=== PATIENT | female | born 1980 | race Caucasian/White ===

== ENCOUNTER 2016-11-20 21:28 | Emergency (ER) | payer MEDICARE, OTHER ==
[2016-11-20] MEDS ORDERED: diphenhydrAMINE 50 MG/ML 1 ML VIAL IVP STA (22:01)
[2016-11-20] MEDS ORDERED: KETOROLAC 30 MG/ML 1 ML VIAL IVP STA (22:01)
[2016-11-20] MEDS ORDERED: SODIUM CHLORIDE 0.9% 500 ML IV STA (22:01)
--- NOTE | 2016-11-20 22:09 | ED ---
Head Injury HPI - General Chief complaint: Head Injury Stated complaint: head injury Time Seen by Provider: 11/20/16 21:54 Source: patient Mode of arrival: ambulatory Limitations: no limitations - History of Present Illness Initial comments: This patient is a 36-year-old woman who states that she is having severe left parietal headache. She believes that it is related to a fall that she had proximal 3 weeks ago. The patient states she had been drinking at the time. She slipped on the stairs and the right side of her head struck a wooden banister, and then the left side of her head struck a plaster wall breaking the plaster. She states that she was dazed but did not lose consciousness. She did have an episode of vomiting but then went to bed. She states that since that time the headache is not resolved and then today it was worsening. She states the pain is severe, constant, gets worse with bright lights. She has not noted any relieving factors. She denies neck pain. She denies any neurologic symptoms. MD Complaint: head injury, head pain Onset/Timin -: week(s) Mechanism of Injury: mechanical fall Location: parietal Loss of Consciousness: no Previous Trauma to this Area: No Place: home Radiation: none Severity: severe Quality: aching Consistency: constant Other Injuries: none - Related Data Home Medications Medication Instructions Recorded Confirmed DULoxetine HCL [Cymbalta] 120 mg PO DAILY 11/20/16 11/20/16 Lisinopril [Zestril] 20 mg PO DAILY 11/20/16 11/20/16 OXcarbazepine [Trileptal] 600 mg PO BID 11/20/16 11/20/16 Prazosin [Minipress] 1 mg PO DAILY PRN 11/20/16 11/20/16 Prazosin [Minipress] 3 mg PO HS 11/20/16 11/20/16 Allergies/Adverse reactions: Allergies Allergy/AdvReac Type Severity Reaction Status Date / Time No Known Allergies Allergy Verified 11/20/16 21:51 Review of Systems ROS Statement: Those systems with pertinent positive or pertinent negative responses have been documented in the HPI. ROS Other: All systems not noted in ROS Statement are negative. Constitutional: Denies: fever, chills, weakness Eyes: Denies: eye pain, vision change ENT: Denies: ear pain, hearing loss, epistaxis Respiratory: Denies: cough, dyspnea Cardiovascular: Denies: chest pain Gastrointestinal: Denies: abdominal pain, vomiting Musculoskeletal: Denies: back pain Neurological: Reports: headache. Denies: weakness, numbness, paresthesias, confusion, abnormal gait Hematological/Lymphatic: Denies: easy bleeding Past Medical History Past Medical History: GERD/Reflux, Sleep Apnea/CPAP/BIPAP Additional Past Medical History / Comment(s): Pt. has a hx. of DM but lost wt. and started exercising approx. one year ago and no longer needs oral diabetic meds. or diabetic diet; Pt. takes omeprazole otc, when needed for acid reflux; Pt. uses a cpap machine at home, but doesn't have it with her in the hospital; Pt. states she has chronic back pain but has no diagnosis and no prev. injury; Pt. has endometriosis and interstitial cystitis. History of Any Multi-Drug Resistant Organisms: None Reported Past Surgical History: Tubal Ligation Past Anesthesia/Blood Transfusion Reactions: No Reported Reaction Past Psychological History: Anxiety, Bipolar, Depression, PTSD Smoking Status: Current every day smoker Past Alcohol Use History: Occasional Past Drug Use History: Marijuana - Past Family History Father Family Medical History: Cancer, Congestive Heart Failure (CHF), Diabetes Mellitus, Dialysis, Hypertension, Renal Disease General Exam Limitations: no limitations General appearance: alert, in no apparent distress, obese Head exam: Present: atraumatic, normocephalic Eye exam: Present: normal appearance, PERRL, EOMI. Absent: scleral icterus, conjunctival injection, nystagmus, periorbital swelling, periorbital tenderness ENT exam: Present: normal oropharynx, mucous membranes moist, TM's normal bilaterally, normal external ear exam Neck exam: Present: normal inspection, full ROM. Absent: tenderness, meningismus Respiratory exam: Present: normal lung sounds bilaterally. Absent: respiratory distress, wheezes, rales, rhonchi Cardiovascular Exam: Present: regular rate, normal rhythm, normal heart sounds. Absent: systolic murmur, diastolic murmur, rubs, gallop Extremities exam: Present: normal inspection, normal capillary refill. Absent: pedal edema, calf tenderness Back exam: Present: normal inspection. Absent: vertebral tenderness Neurological exam: Present: alert, oriented X3, CN II-XII intact. Absent: motor sensory deficit Skin exam: Present: warm, dry, intact, normal color. Absent: rash Course Vital Signs 11/20/16 11/20/16 21:43 22:20 Temperature 98.8 F Pulse Rate 89 67 Respiratory 16 16 Rate Blood Pressure 133/89 136/96 O2 Sat by Pulse 100 97 Oximetry Disposition Clinical Impression: Closed head injury Disposition: HOME SELF-CARE Condition: Fair Instructions: Concussion (ED) Referrals: Carlita Dover MD [Primary Care Provider] - 1-2 days Zeus Adams MD [STAFF PHYSICIAN] - 1-2 days
--- NOTE | 2016-11-20 23:04 | CT ---
EXAM: CT Head Without Intravenous Contrast CLINICAL HISTORY: Reason: Pain TECHNIQUE: Axial computed tomography images of the head/brain without intravenous contrast. CTDI is 44.40 mGy and DLP is 782.60 mGy-cm. This CT exam was performed using one or more of the following dose reduction techniques: automated exposure control, adjustment of the mA and/or kV according to patient size, and/or use of iterative reconstruction technique. COMPARISON: 09/09/2013 FINDINGS: Brain: Unremarkable. No hemorrhage. No significant white matter disease. No edema. Ventricles: Unremarkable. No ventriculomegaly. Bones/joints: Unremarkable. No acute fracture. Soft tissues: Unremarkable. Sinuses: Unremarkable as visualized. No acute sinusitis. Mastoid air cells: Unremarkable as visualized. No mastoid effusion. IMPRESSION: Normal head/brain CT.
[2016-11-20] MEDS ORDERED: METOCLOPRAMIDE 5 MG/ML 2 ML VIAL IVP STA (23:22)
[2016-11-20 23:50] VITALS: BP 110/53; PULSE 78; RESP 18
[2016-11-21 00:03] VITALS: TEMP 98.2
== END 2016-11-21 00:04 | disposition home or self-care (01) ==
LOC: EC 21:28
DX: S09.90XA Unspecified injury of head, initial encounter (principal); F43.12 Post-traumatic stress disorder, chronic; F41.9 Anxiety disorder, unspecified; F31.9 Bipolar disorder, unspecified; Z68.41 Body mass index [BMI] 40.0-44.9, adult; E66.9 Obesity, unspecified; G47.30 Sleep apnea, unspecified; F17.200 Nicotine dependence, unspecified, uncomplicated; Z99.89 Dependence on other enabling machines and devices; Z79.899 Other long term (current) drug therapy; W10.9XXA Fall (on) (from) unspecified stairs and steps, initial encounter; Y92.009 Unspecified place in unspecified non-institutional (private) residence as the place of occurrence of the external cause
CPT/HCPCS: 96375 ×3; 96361 ×2; 96374 ×2; 99284 ×2; 70450; J1200; J2765; J1885

== ENCOUNTER 2017-09-18 12:41 | Inpatient (IN) | payer MEDICARE, MEDICAID ==
--- NOTE | 2017-09-18 13:40 | ED ---
Psych HPI - General Chief Complaint: Psychiatric Symptoms Stated Complaint: EPS eval Time Seen by Provider: 09/18/17 12:54 Source: patient, RN notes reviewed Mode of arrival: ambulatory Limitations: no limitations - History of Present Illness Initial Comments: This is a 37-year-old female presents emergency Department chief complaint of depression thoughts of suicide. Patient states that her boyfriend this morning from an overdose. Patient states that they had argument eye before and she feels that it's her fault. Patient states that she does use alcohol denies any illicit drug use. Patient states she had an appointment with [facility] today though she states that she does not want to go there. Patient denies any physical complaints. - Related Data Home Medications Medication Instructions Recorded Confirmed DULoxetine HCL [Cymbalta] 120 mg PO DAILY 11/20/16 09/18/17 Lisinopril [Zestril] 20 mg PO DAILY 11/20/16 09/18/17 OXcarbazepine [Trileptal] 600 mg PO BID 11/20/16 09/18/17 Acyclovir 400 mg PO BID 09/18/17 09/18/17 Cholecalciferol [Vitamin D3] 5,000 unit PO DAILY 09/18/17 09/18/17 Cyanocobalamin [Vitamin B-12 2,000 mcg SQ Q7D 09/18/17 09/18/17 Injection] Ibuprofen [Motrin] 600 mg PO AC-TID PRN 09/18/17 09/18/17 Prazosin [Minipress] 1 mg PO HS 09/18/17 09/18/17 Prazosin [Minipress] 5 mg PO HS 09/18/17 09/18/17 cloNIDine HCL [Catapres] 0.1 mg PO DAILY PRN 09/18/17 09/18/17 Allergies Allergy/AdvReac Type Severity Reaction Status Date / Time No Known Allergies Allergy Verified 09/18/17 12:57 Review of Systems ROS Statement: Those systems with pertinent positive or pertinent negative responses have been documented in the HPI. ROS Other: All systems not noted in ROS Statement are negative. Past Medical History Past Medical History: GERD/Reflux, Sleep Apnea/CPAP/BIPAP Additional Past Medical History / Comment(s): Pt. has a hx. of DM but lost wt. and started exercising approx. one year ago and no longer needs oral diabetic meds. or diabetic diet; Pt. takes omeprazole otc, when needed for acid reflux; Pt. uses a cpap machine at home, but doesn't have it with her in the hospital; Pt. states she has chronic back pain but has no diagnosis and no prev. injury; Pt. has endometriosis and interstitial cystitis. History of Any Multi-Drug Resistant Organisms: None Reported Past Surgical History: Tubal Ligation Past Anesthesia/Blood Transfusion Reactions: No Reported Reaction Past Psychological History: Anxiety, Bipolar, Depression, PTSD Smoking Status: Current every day smoker Past Alcohol Use History: Occasional Past Drug Use History: Marijuana - Past Family History Father Family Medical History: Cancer, Congestive Heart Failure (CHF), Diabetes Mellitus, Dialysis, Hypertension, Renal Disease General Exam Limitations: no limitations General appearance: alert, in no apparent distress Head exam: Present: atraumatic, normocephalic, normal inspection Eye exam: Present: normal appearance, PERRL, EOMI. Absent: scleral icterus, conjunctival injection, periorbital swelling ENT exam: Present: normal exam, normal oropharynx, mucous membranes moist Neck exam: Present: normal inspection, full ROM. Absent: tenderness, meningismus, lymphadenopathy Respiratory exam: Present: normal lung sounds bilaterally. Absent: respiratory distress, wheezes, rales, rhonchi, stridor Cardiovascular Exam: Present: regular rate, normal rhythm, normal heart sounds. Absent: systolic murmur, diastolic murmur, rubs, gallop, clicks GI/Abdominal exam: Present: soft, normal bowel sounds. Absent: distended, tenderness, guarding, rebound, rigid Neurological exam: Present: alert Psychiatric exam: Present: depressed, other (Patient is tearful) Skin exam: Present: warm, dry, intact, normal color. Absent: rash Course Vital Signs 09/18/17 09/18/17 12:49 13:28 Temperature 98.4 F Pulse Rate 84 Respiratory 20 18 Rate Blood Pressure 122/86 Medical Decision Making - Lab Data Lab Results 09/18/17 Range/Units 13:02 Urine Opiates Screen Not Detected (NotDetected) Ur Oxycodone Screen Not Detected (NotDetected) Urine Methadone Screen Not Detected (NotDetected) Ur Propoxyphene Screen Not Detected (NotDetected) Ur Barbiturates Screen Not Detected (NotDetected) U Tricyclic Antidepress Not Detected (NotDetected) Ur Phencyclidine Scrn Not Detected (NotDetected) Ur Amphetamines Screen Not Detected (NotDetected) U Methamphetamines Scrn Not Detected (NotDetected) U Benzodiazepines Scrn Not Detected (NotDetected) Urine Cocaine Screen Not Detected (NotDetected) U Marijuana (THC) Screen Detected H (NotDetected) Disposition Clinical Impression: Depression, Suicidal ideation Disposition: ADMITTED IP TO THIS [facility] Condition: Stable
[2017-09-18 13:41] LABS: Amphetamine Screen,Urine Not Detected (NotDetected); Barbiturate Screen,Urine Not Detected (NotDetected); Benzodiazepines Screen,Urine Not Detected (NotDetected); Cocaine Screen,Urine Not Detected (NotDetected); Methadone Screen, Urine Not Detected (NotDetected); Opiate Screen,Urine Not Detected (NotDetected); Oxycodone Screen, Urine Not Detected (NotDetected); Phencyclidine Screen,Urine Not Detected (NotDetected); Tricyclic Antidepressant,Urine Not Detected (NotDetected); Urn Cannabinoid Scrn Detected (NotDetected)
[2017-09-18] MEDS ORDERED: ACETAMINOPHEN TAB 325 MG TAB PO PRN (16:30)
[2017-09-18] MEDS ORDERED: MAGNESIUM HYDROXIDE 2,400 MG/10 ML CUP PO PRN (16:30)
[2017-09-18] MEDS ORDERED: MAG HYDROX/AL HYDROX/SIMETH 30 ML CUP PO PRN (16:30)
[2017-09-18] MEDS ORDERED: IBUPROFEN 600 MG TAB PO PRN (16:35)
--- NOTE | 2017-09-18 17:03 | P.CONS ---
History of Present Illness - Reason for Consult Postherpetic pain and genital herpes - History of Present Illness 37-year-old female is admitted for the depression and suicidal ideations after her boyfriend of an overdose this morning. Patient was comparing of poor hepatic burning sensation in the vaginal area patient is already on acyclovir which will be continued. Patient does have history of hypertension patient blood pressures are well controlled with lisinopril which will be continued patient will be started on Neurontin patient is also on duloxetine which should help with the neuropathic pain from herpes, patient's drug screen is positive for marijuana. Review of Systems REVIEW OF SYSTEMS: CONSTITUTIONAL: No fever, no malaise, no fatigue. HEENT: No recent visual problems or hearing problems. Denied any sore throat. CARDIOVASCULAR: No chest pain, orthopnea, PND, no palpitations, no syncope. PULMONARY: No shortness of breath, no cough, no hemoptysis. GASTROINTESTINAL: No diarrhea, no nausea, no vomiting, no abdominal pain. Normoactive bowel sounds. NEUROLOGICAL: No headaches, no weakness, no numbness. HEMATOLOGICAL: Denies any bleeding or petechiae. GENITOURINARY: Denies any burning micturition, frequency, or urgency. MUSCULOSKELETAL/RHEUMATOLOGICAL: Denies any joint pain, swelling, or any muscle pain. ENDOCRINE: Denies any polyuria or polydipsia. The rest of the 14-point review of systems is negative. Past Medical History Past Medical History: GERD/Reflux, Sleep Apnea/CPAP/BIPAP Additional Past Medical History / Comment(s): Pt. has a hx. of DM but lost wt. and started exercising approx. one year ago and no longer needs oral diabetic meds. or diabetic diet; Pt. takes omeprazole otc, when needed for acid reflux; Pt. uses a cpap machine at home, but doesn't have it with her in the hospital; Pt. states she has chronic back pain but has no diagnosis and no prev. injury; Pt. has endometriosis and interstitial cystitis. History of Any Multi-Drug Resistant Organisms: None Reported Past Surgical History: Tubal Ligation Past Anesthesia/Blood Transfusion Reactions: No Reported Reaction Past Psychological History: Anxiety, Bipolar, Depression, PTSD Smoking Status: Current every day smoker Past Alcohol Use History: Occasional Past Drug Use History: Marijuana - Past Family History Father Family Medical History: Cancer, Congestive Heart Failure (CHF), Diabetes Mellitus, Dialysis, Hypertension, Renal Disease Medications and Allergies Home Medications Medication Instructions Recorded Confirmed Type DULoxetine HCL [Cymbalta] 120 mg PO DAILY 11/20/16 09/18/17 History Lisinopril [Zestril] 20 mg PO DAILY 11/20/16 09/18/17 History OXcarbazepine [Trileptal] 600 mg PO BID 11/20/16 09/18/17 History Acyclovir 400 mg PO BID 09/18/17 09/18/17 History Cholecalciferol [Vitamin D3] 5,000 unit PO DAILY 09/18/17 09/18/17 History Cyanocobalamin [Vitamin B-12 2,000 mcg SQ Q7D 09/18/17 09/18/17 History Injection] Ibuprofen [Motrin] 600 mg PO AC-TID PRN 09/18/17 09/18/17 History Prazosin [Minipress] 1 mg PO HS 09/18/17 09/18/17 History Prazosin [Minipress] 5 mg PO HS 09/18/17 09/18/17 History cloNIDine HCL [Catapres] 0.1 mg PO DAILY PRN 09/18/17 09/18/17 History Allergies Allergy/AdvReac Type Severity Reaction Status Date / Time No Known Allergies Allergy Verified 09/18/17 12:57 Physical Exam Vitals: Vital Signs Temp Pulse Pulse Resp BP BP Pulse Ox 09/18/17 16:31 98.2 F 80 16 120/77 100 09/18/17 15:50 98.3 F 86 20 124/67 98 09/18/17 13:28 18 09/18/17 12:49 98.4 F 84 20 122/86 Intake and Output 09/18/17 09/18/17 09/18/17 06:59 14:59 22:59 Other: Weight 97.522 kg 93.8 kg PHYSICAL EXAMINATION: GENERAL: The patient is alert and oriented x3, not in any acute distress. Well developed, well nourished. HEENT: Pupils are round and equally reacting to light. EOMI. No scleral icterus. No conjunctival pallor. Normocephalic, atraumatic. No pharyngeal erythema. No thyromegaly. CARDIOVASCULAR: S1 and S2 present. No murmurs, rubs, or gallops. PULMONARY: Chest is clear to auscultation, no wheezing or crackles. ABDOMEN: Soft, nontender, nondistended, normoactive bowel sounds. No palpable organomegaly. Did not perform genitourinary exam MUSCULOSKELETAL: No joint swelling or deformity. EXTREMITIES: No cyanosis, clubbing, or pedal edema. NEUROLOGICAL: Gross neurological examination did not reveal any focal deficits. SKIN: No rashes. Results Labs: Abnormal Lab Results - Last 24 Hours (Table) 09/18/17 Range/Units 13:02 U Marijuana (THC) Screen Detected H (NotDetected) Assessment and Plan Plan: -Postherpetic pain, patient does have genital herpes for which patient is already on acyclovir which is being continued patient was started on gabapentin for neuropathic pain patient is also on duloxetine. -Severe depression management as per primary service -Hypertension continue with lisinopril -Marijuana use counseling was provided -Gastroesophageal reflux disease -Sleep apnea For above-mentioned chronic medical problems appropriate home medications will be continued
[2017-09-18] MEDS: NICOTINE 21MG/24HR PATCH TRANSDERM SCH (17:39)
[2017-09-18] MEDS: GABAPENTIN 300 MG CAP PO SCH ×2 (17:39→21:40)
[2017-09-18] MEDS: LORazepam 1 MG TAB PO PRN (17:41)
[2017-09-18] MEDS: ACYCLOVIR 200 MG CAP PO SCH (21:40)
[2017-09-18] MEDS: PRAZOSIN 1 MG CAP PO SCH (21:40)
[2017-09-18] MEDS: OXcarbazepine 300 MG TAB PO SCH (21:40)
[2017-09-19 08:53] LABS: Basophils % (A) 1 %; Eosinophils # (A) 0.3 k/uL (0-0.7); Eosinophils % (A) 3 %; HCT 39.8 % (34.0-46.0); HGB 13.5 gm/dL (11.4-16.0); Lymphocytes # (A) 1.8 k/uL (1.0-4.8); Lymphocytes % (A) 23 %; MCHC 33.9 g/dL (31.0-37.0); MCV 91.4 fL (80.0-100.0); Mean Platelet Volume 6.6; Monocytes # (A) 0.4 k/uL (0-1.0); Monocytes % (A) 5 %; Neutrophils # (A) 5.2 k/uL (1.3-7.7); Neutrophils % (A) 66 %; Platelet Count 274 k/uL (150-450); RBC 4.36 m/uL (3.80-5.40); RDW 13.7 % (11.5-15.5); WBC 7.9 k/uL (3.8-10.6)
[2017-09-19] MEDS: ACYCLOVIR 200 MG CAP PO SCH ×2 (09:01→21:03)
[2017-09-19] MEDS: OXcarbazepine 300 MG TAB PO SCH ×2 (09:01→21:04)
[2017-09-19] MEDS: DULoxetine HCL 60 MG CAPSULE.DR PO SCH (09:01)
[2017-09-19] MEDS: GABAPENTIN 300 MG CAP PO SCH ×3 (09:01→21:04)
[2017-09-19] MEDS: NICOTINE 21MG/24HR PATCH TRANSDERM SCH (09:01)
[2017-09-19] MEDS: LISINOPRIL 20 MG TAB PO SCH (09:01)
[2017-09-19] MEDS: LORazepam 1 MG TAB PO PRN ×2 (09:02→21:56)
[2017-09-19] MEDS: ZIPRASIDONE 20 MG VIAL IM PRN ×2 (09:06→22:09)
[2017-09-19 09:24] LABS: ALT 25 U/L (9-52); AST 19 U/L (14-36); Alkaline Phosphatase 64 U/L (38-126); Anion Gap 12 mmol/L; Blood Urea Nitrogen 13 mg/dL (7-17); Carbon Dioxide 22 mmol/L (22-30); Chloride 103 mmol/L (98-107); Glucose 92 mg/dL (74-99); Potassium 4.1 mmol/L (3.5-5.1); Sodium 137 mmol/L (137-145); Total Bilirubin 0.4 mg/dL (0.2-1.3); Total Protein 6.3 g/dL (6.3-8.2)
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
[2017-09-19] MEDS: PRAZOSIN 1 MG CAP PO SCH (21:04)
[2017-09-19] MEDS ORDERED: diphenhydrAMINE 50 MG CAP PO STA (23:53)
[2017-09-20] MEDS: OXcarbazepine 300 MG TAB PO SCH ×2 (08:09→20:51)
[2017-09-20] MEDS: LISINOPRIL 20 MG TAB PO SCH (08:09)
[2017-09-20] MEDS: NICOTINE 21MG/24HR PATCH TRANSDERM SCH (08:09)
[2017-09-20] MEDS: GABAPENTIN 300 MG CAP PO SCH ×3 (08:09→20:51)
[2017-09-20] MEDS: DULoxetine HCL 60 MG CAPSULE.DR PO SCH (08:09)
[2017-09-20] MEDS: ACYCLOVIR 200 MG CAP PO SCH ×2 (08:09→20:51)
--- NOTE | 2017-09-20 12:41 | P.PN ---
Progress Note - Text Interval history: The patient's is found in the hallway she follows me to an interview room. She was admitted for acute depressive symptoms in the context of bereavement. She has a reported history of bipolar disorder and borderline personality disorder. The patient has been loud an animated on the mental health unit area during our session however she is fairly collected and speaks in a normal tone. She describes a variety of issues bothering her. She then states "you are bringing me down man" and asked to end the session. Mental status exam: The patient is an overweight female she is tanned she has short dark hair. She is dressed in her own clothing. She reports that her moods okay today but she is going through several mood symptoms. Again she is much more collected during our session but out in the milieu she is loud and animated. She is reporting no acute suicidal ideation intent or plan she states that she had suicidal thoughts last evening. No homicidal ideation intent or plan. She is reporting no auditory or visual hallucinations or any specific delusions. Insight and judgment limited. Plan: The patient will continue on her current medications. Consideration will be given to reducing her antidepressant if it appears she is hypomanic or manic with further observation. It does appear there is a significant contribution of personality disorder traits. She is encouraged to participate in the milieu when appropriate. Vital signs reviewed.
[2017-09-20] MEDS: LORazepam 1 MG TAB PO PRN ×2 (13:55→21:28)
[2017-09-20] MEDS: PRAZOSIN 1 MG CAP PO SCH (20:51)
[2017-09-20] MEDS: ZIPRASIDONE 20 MG VIAL IM PRN (22:56)
[2017-09-20] MEDS ORDERED: ZIPRASIDONE 20 MG VIAL IM ONE (22:56)
[2017-09-21] MEDS: ACYCLOVIR 200 MG CAP PO SCH ×2 (08:24→21:16)
[2017-09-21] MEDS: LISINOPRIL 20 MG TAB PO SCH (08:24)
[2017-09-21] MEDS: DULoxetine HCL 60 MG CAPSULE.DR PO SCH (08:24)
[2017-09-21] MEDS: NICOTINE 21MG/24HR PATCH TRANSDERM SCH (08:24)
[2017-09-21] MEDS: OXcarbazepine 300 MG TAB PO SCH ×2 (08:25→21:16)
[2017-09-21] MEDS: GABAPENTIN 300 MG CAP PO SCH ×3 (08:25→21:16)
[2017-09-21] MEDS: LORazepam 1 MG TAB PO PRN ×3 (08:25→21:17)
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
[2017-09-21] MEDS: ZIPRASIDONE 20 MG VIAL IM PRN (18:25)
[2017-09-21] MEDS: PRAZOSIN 1 MG CAP PO SCH (21:16)
[2017-09-22] MEDS: ZIPRASIDONE 20 MG VIAL IM PRN (01:29)
[2017-09-22 05:53] VITALS: TEMP 97.7
[2017-09-22] MEDS: NICOTINE 21MG/24HR PATCH TRANSDERM SCH (08:10)
[2017-09-22] MEDS: DULoxetine HCL 60 MG CAPSULE.DR PO SCH (08:11)
[2017-09-22] MEDS: OXcarbazepine 300 MG TAB PO SCH (08:11)
[2017-09-22] MEDS: ACYCLOVIR 200 MG CAP PO SCH (08:11)
[2017-09-22] MEDS: LISINOPRIL 20 MG TAB PO SCH (08:11)
[2017-09-22] MEDS: GABAPENTIN 300 MG CAP PO SCH (08:11)
[2017-09-22 08:15] VITALS: BP 146/84; PULSE 115; RESP 20
--- NOTE | 2017-09-22 15:20 | P.DS ---
Providers Date of admission: 09/18/17 15:38 Attending physician: Timothy Bonilla MD Consults: 09/18/17 16:30 Consult Physician Routine Consulting Provider: Dilip Whitehead Consult Reason/Comments: H & P and medical care Do you want consulting provider notified?: Already Contacted Primary care physician: [facility] - Discharge Diagnosis(es) (1) Bereavement Status: Acute Priority: High (2) Borderline personality disorder Status: Chronic Priority: High (3) Bipolar disorder Status: Chronic Priority: Low (4) Suicidal ideation Status: Resolved Priority: Medium Hospital Course: She is a 37-year-old female who has a history of a borderline personality disorder and a presumed diagnosis of a bipolar disorder. She presented to the psychiatric unit voluntarily with complaints of acute depression and suicidal ideation. She was acutely distressed when she presented to the unit. The morning of admission she learned that her boyfriend had of the drug overdose. She had all the signs and symptoms of acute bereavement including intense subject active distress, preoccupation with her boyfriend, feeling detached and depersonalized, feeling intense grief with themes of neck since and failure, intense hostility, anger and restlessness, insomnia and difficulty concentrating. We admitted to the psychiatric unit under care of this junior copywriter. We provided a comprehensive biopsychosocial examination. The financial reporting consultant bilingual teacher completed the initial physical exam and medical history and diagnosed: Postherpetic pain, genital herpes, hypertension, marijuana use, GERD and sleep apnea. The financial reporting consultant recommended to continue lisinopril 20 mg per day for treatment hypertension, gabapentin 300 mg 3 times a day for treatment of peripheral neuropathy, basically for 40 mg twice a day with treatment of genital herpes. We resumed her outpatient psychotropic medications including prazosin 6 mg at bedtime, Trileptal 600 mg by mouth twice a day, and duloxetine 120 mg daily. She participated in therapeutic groups and activities. She posed no management problem and required no emergency medicines for behavioral dyscontrol. The overall level of his distress gradually remitted and on the day of admission she felt confident to return home and to resume her outpatient mental health treatment to [facility]. At time of discharge she presented as a casually groomed and neatly dressed 37- year-old female who was pleasant on approach. She made eye contact and attended to the interview. She had a bright facial expression. She showed no abnormality of psychomotor activity. Her speech was spontaneous with normal rate, rhythm and volume. Affect was stable and appropriate. She denied suicidal ideation, wishes or homicidal ideation. She denied feeling hopeless, helpless or worthless. She did not express ideas reference, paranoid ideation or delusional thoughts. Her thinking was abstract and associations were coherent and logical. She denied hallucinations and did not appear to be responding to internal stimuli. Patient Condition at Discharge: Stable Plan - Discharge Summary Discharge Rx Participant: No New Discharge Prescriptions: New Gabapentin [Neurontin] 300 mg PO TID #90 cap Nicotine 21Mg/24Hr Patch [Habitrol] 1 patch TRANSDERM DAILY #7 patch Continue OXcarbazepine [Trileptal] 600 mg PO BID Lisinopril [Zestril] 20 mg PO DAILY Cholecalciferol [Vitamin D3] 5,000 unit PO DAILY Prazosin [Minipress] 5 mg PO HS Prazosin [Minipress] 1 mg PO HS Ibuprofen [Motrin] 600 mg PO AC-TID PRN PRN Reason: Pain Cyanocobalamin [Vitamin B-12 Injection] 2,000 mcg SQ Q7D Acyclovir 400 mg PO BID #60 tablet cloNIDine HCL [Catapres] 0.1 mg PO DAILY PRN #30 tab PRN Reason: Acute Panic Attack DULoxetine HCL [Cymbalta] 120 mg PO DAILY #60 capsule. Discharge Medication List Lisinopril [Zestril] 20 mg PO DAILY 11/20/16 [History] OXcarbazepine [Trileptal] 600 mg PO BID 11/20/16 [History] Cholecalciferol [Vitamin D3] 5,000 unit PO DAILY 09/18/17 [History] Cyanocobalamin [Vitamin B-12 Injection] 2,000 mcg SQ Q7D 09/18/17 [History] Ibuprofen [Motrin] 600 mg PO AC-TID PRN 09/18/17 [History] Prazosin [Minipress] 1 mg PO HS 09/18/17 [History] Prazosin [Minipress] 5 mg PO HS 09/18/17 [History] Acyclovir 400 mg PO BID #60 tablet 09/22/17 [Rx] DULoxetine HCL [Cymbalta] 120 mg PO DAILY #60 capsule. 09/22/17 [Rx] Gabapentin [Neurontin] 300 mg PO TID #90 cap 09/22/17 [Rx] Nicotine 21Mg/24Hr Patch [Habitrol] 1 patch TRANSDERM DAILY #7 patch 09/22/17 [ Rx] cloNIDine HCL [Catapres] 0.1 mg PO DAILY PRN #30 tab 09/22/17 [Rx] Follow up Appointment(s)/Referral(s): [facility] [Outside] - 09/25/17 1:45 pm (09-25-17 @ 1:45 with Carlita Carvajal 09-29-17 @ 8:[address] Crawford ) [facility] [Primary Care Provider] - 1-2 days Patient Instructions/Handouts: Cigarette Smoking and Your Health (GEN), Depression (GEN), Suicide Prevention for Adults (GEN) Activity/Diet/Wound Care/Special Instructions: Activity and diet as tolerated. Avoid the use of street drugs and alcohol. Take all medications as prescribed. When you are in need of refills on your medications please contact your medical provider and/or outpatient psychiatrist to have this done. Please go to scheduled outpatient appointment for aftercare treatment. If symptoms return or become worse call the crisis line at [phone] and/or go to the nearest emergency room for an evaluation. Discharge Disposition: HOME SELF-CARE
== END 2017-09-22 10:02 | disposition home or self-care (01) | DRG 885 ==
LOC: EC 12:41 → 3MHU 15:38
PROVIDERS: ADMIT Psychiatry & Neurology Psychiatry; ATTEND Psychiatry & Neurology Psychiatry
DX: F31.9 Bipolar disorder, unspecified (principal); R45.851 Suicidal ideations; B02.29 Other postherpetic nervous system involvement; E11.42 Type 2 diabetes mellitus with diabetic polyneuropathy; F60.3 Borderline personality disorder; Z63.4 Disappearance and death of family member; A60.00 Herpesviral infection of urogenital system, unspecified; I10 Essential (primary) hypertension; F12.90 Cannabis use, unspecified, uncomplicated; K21.9 Gastro-esophageal reflux disease without esophagitis; G47.30 Sleep apnea, unspecified; F60.89 Other specific personality disorders; F43.10 Post-traumatic stress disorder, unspecified; G47.00 Insomnia, unspecified; F11.10 Opioid abuse, uncomplicated; F17.200 Nicotine dependence, unspecified, uncomplicated; Z71.6 Tobacco abuse counseling; Z79.899 Other long term (current) drug therapy; Z62.810 Personal history of physical and sexual abuse in childhood; Z83.3 Family history of diabetes mellitus; Z82.49 Family history of ischemic heart disease and other diseases of the circulatory system; Z84.1 Family history of disorders of kidney and ureter; Z80.9 Family history of malignant neoplasm, unspecified
CPT/HCPCS: 80053; 80183; 80306; 82075; 84443; 85025; 99285

== ENCOUNTER 2018-01-05 21:27 | Emergency (ER) | payer MEDICAID, MEDICARE, OTHER ==
[2018-01-05 21:33] VITALS: RESP 18
[2018-01-05] MEDS ORDERED: ACETAMINOPHEN TAB 325 MG TAB PO STA (22:11)
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
[2018-01-05 23:33] VITALS: BP 148/88; PULSE 88; TEMP 97.7
== END 2018-01-05 23:33 | disposition home or self-care (01) ==
LOC: EC 21:27
DX: S00.83XA Contusion of other part of head, initial encounter (principal); M54.2 Cervicalgia; F17.200 Nicotine dependence, unspecified, uncomplicated; Z79.899 Other long term (current) drug therapy; Y04.0XXA Assault by unarmed brawl or fight, initial encounter; Y93.89 Activity, other specified; Y92.59 Other trade areas as the place of occurrence of the external cause
CPT/HCPCS: 70450; 72125; 99284

== ENCOUNTER 2018-01-10 22:31 | Emergency (ER) | payer MEDICARE ==
[2018-01-10 22:39] VITALS: BP 139/88; PULSE 90; RESP 18; TEMP 98.2
--- NOTE | 2018-01-10 23:30 | XR ---
EXAMINATION TYPE: XR hand complete RT DATE OF EXAM: 01/10/2018 COMPARISON: NONE HISTORY: Pain and injury TECHNIQUE: 3 views FINDINGS: I see no fracture nor dislocation. There is some soft tissue swelling on the dorsum of the hand. Metacarpals are intact. There are no erosions. IMPRESSION: Mild soft tissue swelling. No fracture.
--- NOTE | 2018-01-10 23:33 | XR ---
EXAMINATION TYPE: XR wrist complete RT DATE OF EXAM: 01/10/2018 COMPARISON: NONE HISTORY: Pain TECHNIQUE: 4 views FINDINGS: I see no fracture nor dislocation. Carpal bones are intact. Scaphoid appears normal. IMPRESSION: Negative right wrist exam.
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
[2018-01-11] MEDS ORDERED: DIPH,PERTUS(ACELL)TETVAC-LF 0.5 ML VIAL IM ONE (00:24)
== END 2018-01-11 00:52 | disposition home or self-care (01) ==
LOC: EC 22:31
DX: S61.411A Laceration without foreign body of right hand, initial encounter (principal); S61.511A Laceration without foreign body of right wrist, initial encounter; Z87.891 Personal history of nicotine dependence; Z79.899 Other long term (current) drug therapy; Z23 Encounter for immunization; W25.XXXA Contact with sharp glass, initial encounter
CPT/HCPCS: 90471; 90715; 99283

== ENCOUNTER 2018-03-08 10:27 | Emergency (ER) | payer MEDICARE, OTHER ==
[2018-03-08 10:32] VITALS: BP 127/86; PULSE 89; RESP 18; TEMP 98.3
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
[2018-03-08 12:06] LABS: Hepatitis A AB IgM Index 0.01; Hepatitis A Antibody IgM NEGATIVE
[2018-03-09 11:11] LABS: Hepatitis B Core IgM Non-Reactive (Non-Reactive)
[2018-03-09 13:23] LABS: HIV 1 AB Non-Reactive (Non-Reactive); HIV AB P24 Non-Reactive (Non-Reactive); HIV P24 AG Non-Reactive (Non-Reactive)
[2018-03-11 06:37] LABS: Herpes simplex I and/or II IgM 0.68 INDEX (<=0.90); Herpes simplex IgG I Ab <0.01 (< or = 0.90); Herpes simplex IgG II Ab 1.63 (< or = 0.90)
== END 2018-03-08 11:30 | disposition home or self-care (01) ==
LOC: EC 10:27
DX: L02.31 Cutaneous abscess of buttock (principal); Z11.3 Encounter for screening for infections with a predominantly sexual mode of transmission; K21.9 Gastro-esophageal reflux disease without esophagitis; F31.9 Bipolar disorder, unspecified; F41.9 Anxiety disorder, unspecified; F43.10 Post-traumatic stress disorder, unspecified; Z87.891 Personal history of nicotine dependence; Z79.899 Other long term (current) drug therapy
CPT/HCPCS: 36415; 80074; 86694; 86695; 86696; 86780; 87390; 99283

== ENCOUNTER 2018-10-13 09:14 | Emergency (ER) | payer MEDICARE, OTHER ==
[2018-10-13 09:26] VITALS: BP 139/89; PULSE 102; RESP 20; TEMP 98.6
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
[2018-10-13] MEDS ORDERED: IBUPROFEN 600 MG STARTER PACK 4 TAB BTL PO STA (10:19)
[2018-10-13] MEDS ORDERED: ONDANSETRON 4 MG ODT STARTER PACK 2 TAB BTL PO STA (10:19)
== END 2018-10-13 10:51 | disposition home or self-care (01) ==
LOC: EC 09:14
DX: S93.401A Sprain of unspecified ligament of right ankle, initial encounter (principal); R11.0 Nausea; F31.9 Bipolar disorder, unspecified; Z87.891 Personal history of nicotine dependence; Z79.899 Other long term (current) drug therapy; W16.532A Jumping or diving into swimming pool striking wall causing other injury, initial encounter; Y93.39 Activity, other involving climbing, rappelling and jumping off; Y92.34 Swimming pool (public) as the place of occurrence of the external cause
CPT/HCPCS: 73610; 73630; 99284; 29515; L4350; S0119

== ENCOUNTER 2018-11-17 15:58 | Emergency (ER) | payer MEDICARE, OTHER ==
[2018-11-17 16:31] LABS: Appearance,Urine Cloudy (Clear); Bilirubin,Urine Negative (Negative); Blood,Urine Trace (Negative); Color,Urine Yellow; Glucose,Urine (UA) Negative (Negative); Ketones,Urine Negative (Negative); Leukocyte Esterase,Urine Large (Negative); Mucus,Urine Few /hpf; Nitrite,Urine Negative (Negative); PH, Urine 5.5 (5.0-8.0); Protein,Urine Trace (Negative); RBC,Urine 3 /hpf (0-5); Specific Gravity,Urine 1.025 (1.001-1.035); Squamous Epithelial Cell,Urine 57 /hpf (0-4)
--- NOTE | 2018-11-17 16:41 | ED ---
Female Urogenital HPI - General Chief complaint: Urogenital Stated complaint: UTI Time Seen by Provider: 11/17/18 16:11 Source: patient, RN notes reviewed Mode of arrival: ambulatory Limitations: no limitations - History of Present Illness Initial comments: 38-year-old female presented to the ER with chief complaint of UTI symptoms. Patient has frequency dysuria and follow order. Denies any vaginal discharge or vaginal bleeding. Denies any chest pain and see no flank pain no fevers or chills. - Related Data Home Medications Medication Instructions Recorded Confirmed DULoxetine HCL [Cymbalta] 30 mg PO DAILY 10/13/18 10/13/18 Ferrous Sulfate [Feosol] 325 mg PO DAILY 10/13/18 10/13/18 Previous Rx's Medication Instructions Recorded Acyclovir 400 mg PO BID #60 tablet 09/22/17 Cephalexin [Keflex] 500 mg PO Q8HR #21 cap 11/17/18 Allergies Allergy/AdvReac Type Severity Reaction Status Date / Time No Known Allergies Allergy Verified 11/17/18 16:03 Review of Systems ROS Statement: Those systems with pertinent positive or pertinent negative responses have been documented in the HPI. ROS Other: All systems not noted in ROS Statement are negative. Past Medical History Past Medical History: GERD/Reflux, Sleep Apnea/CPAP/BIPAP Additional Past Medical History / Comment(s): Pt. has a hx. of DM but lost wt. and started exercising approx. one year ago and no longer needs oral diabetic meds. or diabetic diet; Pt. takes omeprazole otc, when needed for acid reflux; Pt. stated not using cpap machine. Pt. states she has chronic back pain but has no diagnosis and no prev. injury; Pt. has endometriosis and interstitial cystitis. History of Any Multi-Drug Resistant Organisms: None Reported Past Surgical History: Tubal Ligation Past Anesthesia/Blood Transfusion Reactions: No Reported Reaction Past Psychological History: Anxiety, Bipolar, Depression, PTSD Smoking Status: Former smoker Past Alcohol Use History: Daily Past Drug Use History: None Reported - Past Family History Father Family Medical History: Cancer, Congestive Heart Failure (CHF), Diabetes Mellitus, Dialysis, Hypertension, Renal Disease General Exam Limitations: no limitations General appearance: alert, in no apparent distress Head exam: Present: atraumatic, normocephalic, normal inspection Neck exam: Present: normal inspection. Absent: tenderness, meningismus, lymphadenopathy Respiratory exam: Present: normal lung sounds bilaterally. Absent: respiratory distress, wheezes, rales, rhonchi, stridor Cardiovascular Exam: Present: regular rate, normal rhythm, normal heart sounds. Absent: systolic murmur, diastolic murmur, rubs, gallop, clicks GI/Abdominal exam: Present: soft, normal bowel sounds. Absent: distended, tenderness, guarding, rebound, rigid Back exam: Absent: CVA tenderness (R), CVA tenderness (L) Course Vital Signs 11/17/18 16:01 Temperature 98.1 F Pulse Rate 109 H Respiratory 16 Rate Blood Pressure 128/87 O2 Sat by Pulse 96 Oximetry Medical Decision Making - Medical Decision Making 38-year-old presented for UTI symptoms. Patient is tenderness and below she is symptomatically be treated for UTI pending culture. - Lab Data Lab Results 11/17/18 Range/Units 16:15 Urine Color Yellow Urine Appearance Cloudy H (Clear) Urine pH 5.5 (5.0-8.0) Ur Specific [place] 1.025 (1.001-1.035) Urine Protein Trace H (Negative) Urine Glucose (UA) Negative (Negative) Urine Ketones Negative (Negative) Urine Blood Trace H (Negative) Urine Nitrite Negative (Negative) Urine Bilirubin Negative (Negative) Urine Urobilinogen 2.0 (<2.0) mg/dL Ur Leukocyte Esterase Large H (Negative) Urine RBC 3 (0-5) /hpf Urine WBC 18 H (0-5) /hpf Ur Squamous Epith Cells 57 H (0-4) /hpf Urine Mucus Few H (None) /hpf Disposition Clinical Impression: Urinary tract infection Disposition: HOME SELF-CARE Condition: Stable Instructions (If sedation given, give patient instructions): Urinary Tract Infection in Women (ED) Additional Instructions: Please return to the Emergency Department if symptoms worsen or any other concerns. Prescriptions: Cephalexin [Keflex] 500 mg PO Q8HR #21 cap Is patient prescribed a controlled substance at d/c from ED?: No Referrals: [facility] [Primary Care Provider] - 1-2 days Time of Disposition: 16:41
[2018-11-17 17:03] VITALS: BP 158/87; PULSE 92; RESP 18; TEMP 98
== END 2018-11-17 17:02 | disposition home or self-care (01) ==
LOC: EC 15:58
DX: N39.0 Urinary tract infection, site not specified (principal); F41.9 Anxiety disorder, unspecified; F31.9 Bipolar disorder, unspecified; E11.9 Type 2 diabetes mellitus without complications; K21.9 Gastro-esophageal reflux disease without esophagitis; G47.30 Sleep apnea, unspecified; Z79.899 Other long term (current) drug therapy; Z87.891 Personal history of nicotine dependence
CPT/HCPCS: 81001; 87086; 99283

== ENCOUNTER 2018-11-26 10:07 | Emergency (ER) | payer MEDICARE, OTHER ==
[2018-11-26 10:13] VITALS: BP 124/85; PULSE 75; RESP 18; TEMP 98.4
--- NOTE | 2018-11-26 10:14 | ED ---
Female Urogenital HPI - General Chief complaint: Urogenital Stated complaint: UTI Time Seen by Provider: 11/26/18 10:11 Source: patient Mode of arrival: ambulatory Limitations: no limitations - History of Present Illness Initial comments: 38-year-old female presenting for UTI. Patient states she was diagnosed a urinary tract infection last week and has been on Keflex. Patient states her symptoms are not going away however she has not been taking the Keflex directly scheduled she states that sometimes she forgets doses. Patient states she has not had a fever. Denies back pain. Denies vaginal discharge or consider breast urine. Remaining review of system negative. Upon arrival patient appears well nontoxic. Afebrile. - Related Data Home Medications Medication Instructions Recorded Confirmed Ferrous Sulfate [Feosol] 325 mg PO DAILY 10/13/18 11/26/18 Previous Rx's Medication Instructions Recorded Ciprofloxacin HCl [Cipro] 500 mg PO Q12HR 7 Days #14 tablet 11/26/18 Allergies Allergy/AdvReac Type Severity Reaction Status Date / Time No Known Allergies Allergy Verified 11/26/18 10:27 Review of Systems ROS Statement: Those systems with pertinent positive or pertinent negative responses have been documented in the HPI. ROS Other: All systems not noted in ROS Statement are negative. Past Medical History Past Medical History: GERD/Reflux, Sleep Apnea/CPAP/BIPAP Additional Past Medical History / Comment(s): Pt. has a hx. of DM but lost wt. and started exercising approx. one year ago and no longer needs oral diabetic meds. or diabetic diet; Pt. takes omeprazole otc, when needed for acid reflux; Pt. stated not using cpap machine. Pt. states she has chronic back pain but has no diagnosis and no prev. injury; Pt. has endometriosis and interstitial cystitis. History of Any Multi-Drug Resistant Organisms: None Reported Past Surgical History: Tubal Ligation Past Anesthesia/Blood Transfusion Reactions: No Reported Reaction Past Psychological History: Anxiety, Bipolar, Depression, PTSD Smoking Status: Former smoker Past Alcohol Use History: Daily Past Drug Use History: None Reported - Past Family History Father Family Medical History: Cancer, Congestive Heart Failure (CHF), Diabetes Mellitus, Dialysis, Hypertension, Renal Disease General Exam - General Exam Comments Initial Comments: General: The patient is awake and alert, in no distress, and does not appear acutely ill. Eye: Pupils are equal, round and reactive to light, extra-ocular movements are intact. No nystagmus. There is normal conjunctiva bilaterally. No signs of icterus. Ears, nose, mouth and throat: There are moist mucous membranes and no oral lesions. Neck: The neck is supple, there is no tenderness or JVD. Cardiovascular: There is a regular rate and rhythm. No murmur, rub or gallop is appreciated. Respiratory: Lungs are clear to auscultation, respirations are non-labored, breath sounds are equal. No wheezes, stridor, rales, or rhonchi. Gastrointestinal: Soft, non-distended, non-tender abdomen without masses or organomegaly noted. There is no rebound or guarding present. No CVA tenderness Musculoskeletal: Normal ROM, no tenderness. Strength 5/5. Sensation intact. Pulses equal bilaterally 2+. Neurological: A&O x 3. CN II-XII intact, There are no obvious motor or sensory deficits. Coordination appears grossly intact. Speech is normal. Skin: Skin is warm and dry and no rashes or lesions are noted. Psychiatric: Cooperative, appropriate mood & affect, normal judgment. Limitations: no limitations Course Vital Signs 11/26/18 10:10 Temperature 98.4 F Pulse Rate 75 Respiratory 18 Rate Blood Pressure 124/85 O2 Sat by Pulse 98 Oximetry Medical Decision Making - Medical Decision Making Well appearing 38-year-old female presenting for urinary tract infection. Patient states symptoms have not been relieved with one week of antibiotics on Keflex. Previous culture revealed normal marlene. patient has no abdominal or back pain, afebrile. nontoxic. History of chronic cystitis. Patient is positive nitrates. No clinical findings consistent with pyelonephritis. Patient will be discharged with ciprofloxacin. patient is agreeable with this antibiotic regime. Patient return parameters were discussed, I discussed case wt Dr. Todd who was agreeable with plan. Pt discharged appearing well. To f/u with pcp in next week. Return for worsening symptoms, back pain fevers. - Lab Data Lab Results 11/26/18 Range/Units 10:20 Urine Color Dark Brown Urine Appearance Clear (Clear) Urine pH 6.5 (5.0-8.0) Ur Specific [place] 1.021 (1.001-1.035) Urine Protein Trace H (Negative) Urine Glucose (UA) Negative (Negative) Urine Ketones Negative (Negative) Urine Blood Negative (Negative) Urine Nitrite Positive H (Negative) Urine Bilirubin 2+ H (Negative) Urine Urobilinogen 8.0 (<2.0) mg/dL Ur Leukocyte Esterase Negative (Negative) Urine RBC 1 (0-5) /hpf Urine WBC <1 (0-5) /hpf Ur Squamous Epith Cells 2 (0-4) /hpf Urine Mucus Rare H (None) /hpf Disposition Clinical Impression: UTI (urinary tract infection) Disposition: HOME SELF-CARE Condition: Good Instructions (If sedation given, give patient instructions): Urinary Tract Inf ection in Women (ED) Additional Instructions: Please use medication as discussed. Please follow-up with family doctor in the next 2 day. Please return to emergency room if the symptoms increase or worsen or for any other concerns. Prescriptions: Ciprofloxacin HCl [Cipro] 500 mg PO Q12HR 7 Days #14 tablet Is patient prescribed a controlled substance at d/c from ED?: No Referrals: [facility] [Primary Care Provider] - 1-2 days Time of Disposition: 10:59
[2018-11-26 10:37] LABS: Appearance,Urine Clear (Clear); Bilirubin,Urine 2+ (Negative); Blood,Urine Negative (Negative); Color,Urine Dark Brown; Glucose,Urine (UA) Negative (Negative); Ketones,Urine Negative (Negative); Leukocyte Esterase,Urine Negative (Negative); Mucus,Urine Rare /hpf; Nitrite,Urine Positive (Negative); PH, Urine 6.5 (5.0-8.0); Protein,Urine Trace (Negative); RBC,Urine 1 /hpf (0-5); Specific Gravity,Urine 1.021 (1.001-1.035); Squamous Epithelial Cell,Urine 2 /hpf (0-4); WBC,Urine <1 /hpf (0-5)
== END 2018-11-26 11:23 | disposition home or self-care (01) ==
LOC: EC 10:07
DX: N39.0 Urinary tract infection, site not specified (principal); R82.998 Other abnormal findings in urine; Z87.448 Personal history of other diseases of urinary system; Z87.891 Personal history of nicotine dependence
CPT/HCPCS: 81001; 99283

== ENCOUNTER 2019-04-19 13:19 | Emergency (ER) | payer MEDICARE, OTHER ==
[2019-04-19 14:03] LABS: Glucose,Whole Blood 110 mg/dL (75-99)
[2019-04-19] MEDS ORDERED: SODIUM CHLORIDE 0.9% 1,000 ML IV STA (14:09)
[2019-04-19] MEDS ORDERED: SODIUM CHLORIDE 0.9% 500 ML 500 ML IV STA (14:09)
--- NOTE | 2019-04-19 14:13 | ED ---
General Adult HPI - General Chief complaint: Dizziness Stated complaint: dizziness/lightheaded Time Seen by Provider: 04/19/19 13:59 Source: patient, RN notes reviewed Mode of arrival: wheelchair Limitations: no limitations - History of Present Illness Initial comments: Patient is a pleasant 2-year-old female presenting to the emergency department with lightheadedness. Patient states she took her Geodon around 10:00 today. Patient states she is supposed be on this however cannot remember the last time that she took it. Patient feels inhibited very long time. Patient states at work she started to feel lightheaded. Patient states her legs feels somewhat weak and her tongue felt tingly. Patient did not pass out however felt if symptoms worsen that she could. No history of similar symptoms previously. Patient admits to being under increased stress recently. Patient states her only symptoms at this time is feeling slightly drowsy. - Related Data Home Medications Medication Instructions Recorded Confirmed Ferrous Sulfate [Feosol] 325 mg PO DAILY 10/13/18 11/26/18 Previous Rx's Medication Instructions Recorded Ciprofloxacin HCl [Cipro] 500 mg PO Q12HR 7 Days #14 tablet 11/26/18 Allergies Allergy/AdvReac Type Severity Reaction Status Date / Time No Known Allergies Allergy Verified 04/19/19 13:43 Review of Systems ROS Statement: Those systems with pertinent positive or pertinent negative responses have been documented in the HPI. ROS Other: All systems not noted in ROS Statement are negative. Constitutional: Denies: fever Eyes: Denies: eye pain ENT: Denies: ear pain Respiratory: Denies: cough, dyspnea Cardiovascular: Denies: chest pain Endocrine: Reports: fatigue Gastrointestinal: Denies: abdominal pain Genitourinary: Denies: dysuria Musculoskeletal: Denies: back pain Skin: Denies: rash Neurological: Denies: headache, weakness, confusion Past Medical History Past Medical History: GERD/Reflux, Sleep Apnea/CPAP/BIPAP Additional Past Medical History / Comment(s): Pt. has a hx. of DM but lost wt. and started exercising approx. one year ago and no longer needs oral diabetic meds. or diabetic diet; Pt. takes omeprazole otc, when needed for acid reflux; Pt. stated not using cpap machine. Pt. states she has chronic back pain but has no diagnosis and no prev. injury; Pt. has endometriosis and interstitial cystitis. History of Any Multi-Drug Resistant Organisms: None Reported Past Surgical History: Tubal Ligation Past Anesthesia/Blood Transfusion Reactions: No Reported Reaction Past Psychological History: Anxiety, Bipolar, Depression, PTSD Smoking Status: Former smoker Past Alcohol Use History: None Reported, Daily Past Drug Use History: None Reported - Past Family History Father Family Medical History: Cancer, Congestive Heart Failure (CHF), Diabetes Mellitus, Dialysis, Hypertension, Renal Disease General Exam Limitations: no limitations General appearance: alert, in no apparent distress Head exam: Present: normocephalic Eye exam: Present: normal appearance, PERRL, EOMI. Absent: nystagmus ENT exam: Present: normal oropharynx Neck exam: Present: normal inspection Respiratory exam: Present: normal lung sounds bilaterally Cardiovascular Exam: Present: regular rate, normal rhythm Expanded Peripheral pulses: 2+: Radial (R), Radial (L), Posterior Tibialis (R), Posterior Tibialis (L), Dorsalis Pedis (R), Dorsalis Pedis (L) GI/Abdominal exam: Present: soft. Absent: distended, tenderness Extremities exam: Present: normal inspection. Absent: pedal edema, calf ten derness Neurological exam: Present: alert, CN II-XII intact. Absent: motor sensory deficit Expanded Neurological exam: Present: protecting the airway Speech: Present: fluid speech Cranial nerves: EOM's Intact: Normal Sensory exam: Upper Extremity Light Touch: Normal, Lower Extremity Light Touch: Normal Motor strength exam: RUE: 5, LUE: 5, RLE: 5, LLE: 5 Eye Response: (4) open spontaneously Motor Response: (6) obeys commands Verbal Response: (5) oriented Psychiatric exam: Present: normal affect, normal mood Skin exam: Present: normal color Course Vital Signs 04/19/19 13:43 Temperature 97.9 F Pulse Rate 92 Respiratory 18 Rate Blood Pressure 126/84 O2 Sat by Pulse 98 Oximetry EKG Findings - EKG Comments: EKG Findings:: Normal sinus rhythm 83. MO 136. QRS 78. QT 382. QTC 448. Normal axis. Normal QRS. No acute ST change. Medical Decision Making - Medical Decision Making Patient reevaluated and resting comfortably in bed. Patient updated on results. Patient states she is feeling much better and requests discharge. Patient states that she will hold her Geodon until follow-up. Patient is advised close follow-up. - Lab Data Result diagrams: 04/19/19 13:45 04/19/19 13:45 Lab Results 04/19/19 04/19/19 04/19/19 Range/Units 13:45 13:45 13:45 WBC 8.3 (3.8-10.6) k/uL RBC 4.58 (3.80-5.40) m/uL Hgb 13.8 (11.4-16.0) gm/dL Hct 41.1 (34.0-46.0) % MCV 89.8 (80.0-100.0) fL MCH 30.1 (25.0-35.0) pg MCHC 33.5 (31.0-37.0) g/dL RDW 12.9 (11.5-15.5) % Plt Count 289 (150-450) k/uL Neutrophils % 62 % Lymphocytes % 27 % Monocytes % 5 % Eosinophils % 3 % Basophils % 1 % Neutrophils # 5.2 (1.3-7.7) k/uL Lymphocytes # 2.3 (1.0-4.8) k/uL Monocytes # 0.4 (0-1.0) k/uL Eosinophils # 0.2 (0-0.7) k/uL Basophils # 0.1 (0-0.2) k/uL Sodium 137 (137-145) mmol/L Potassium 4.3 (3.5-5.1) mmol/L Chloride 107 (98-107) mmol/L Carbon Dioxide 22 (22-30) mmol/L Anion Gap 8 mmol/L BUN 18 H (7-17) mg/dL Creatinine 0.68 (0.52-1.04) mg/dL Est GFR (CKD-EPI)AfAm >90 (>60 ml/min/1.73 sqM) Est GFR (CKD-EPI)NonAf >90 (>60 ml/min/1.73 sqM) Glucose 104 H (74-99) mg/dL POC Glucose (mg/dL) (75-99) mg/dL POC Glu Driver Medic ID Calcium 9.3 (8.4-10.2) mg/dL Total Bilirubin 0.3 (0.2-1.3) mg/dL AST 33 (14-36) U/L ALT 33 (4-34) U/L Alkaline Phosphatase 64 (38-126) U/L Troponin I <0.012 (0.000-0.034) ng/mL Total Protein 7.0 (6.3-8.2) g/dL Albumin 4.0 (3.5-5.0) g/dL 04/19/19 Range/Units 14:00 WBC (3.8-10.6) k/uL RBC (3.80-5.40) m/uL Hgb (11.4-16.0) gm/dL Hct (34.0-46.0) % MCV (80.0-100.0) fL MCH (25.0-35.0) pg MCHC (31.0-37.0) g/dL RDW (11.5-15.5) % Plt Count (150-450) k/uL Neutrophils % % Lymphocytes % % Monocytes % % Eosinophils % % Basophils % % Neutrophils # (1.3-7.7) k/uL Lymphocytes # (1.0-4.8) k/uL Monocytes # (0-1.0) k/uL Eosinophils # (0-0.7) k/uL Basophils # (0-0.2) k/uL Sodium (137-145) mmol/L Potassium (3.5-5.1) mmol/L Chloride (98-107) mmol/L Carbon Dioxide (22-30) mmol/L Anion Gap mmol/L BUN (7-17) mg/dL Creatinine (0.52-1.04) mg/dL Est GFR (CKD-EPI)AfAm (>60 ml/min/1.73 sqM) Est GFR (CKD-EPI)NonAf (>60 ml/min/1.73 sqM) Glucose (74-99) mg/dL POC Glucose (mg/dL) 110 H (75-99) mg/dL POC Glu Driver Medic ID Leidy Witt Calcium (8.4-10.2) mg/dL Total Bilirubin (0.2-1.3) mg/dL AST (14-36) U/L ALT (4-34) U/L Alkaline Phosphatase (38-126) U/L Troponin I (0.000-0.034) ng/mL Total Protein (6.3-8.2) g/dL Albumin (3.5-5.0) g/dL - Radiology Data Radiology results: image reviewed (Chest x-ray shows poor inspiratory view without suspicious focal infiltrate. Heart size at upper limits of normal.) Disposition Clinical Impression: Lightheadedness Disposition: HOME SELF-CARE Condition: Stable Instructions (If sedation given, give patient instructions): Dizziness (ED) Additional Instructions: Please follow-up with primary care physician in the next couple days for recheck. Please follow-up with your psychiatrist and review medications. Return for increased drowsiness, weakness or confusion, worsening symptoms or other concerns. Is patient prescribed a controlled substance at d/c from ED?: No Referrals: Nadiya Phillips MD [Primary Care Provider] - 1-2 days Time of Disposition: 15:54
--- NOTE | 2019-04-19 14:39 | XR ---
EXAMINATION TYPE: XR chest 2V DATE OF EXAM: 04/19/2019 COMPARISON: Chest x-ray March 05, 2013 HISTORY: Shortness of breath and weakness. TECHNIQUE: Frontal and lateral views of the chest are obtained. FINDINGS: Exam slightly suboptimal due to large body habitus. Diminished inspiration on current stud y. There is no focal air space opacity, pleural effusion, or pneumothorax seen. The cardiac silhoue tte size is now upper limits of normal. The osseous structures are intact. IMPRESSION: Poor inspiration without suspicious acute focal infiltrate.
[2019-04-19 14:45] LABS: ALT 33 U/L (4-34); AST 33 U/L (14-36); African American GFR (CKD) >90 (>60 ml/min/1.73 sqM); Alkaline Phosphatase 64 U/L (38-126); Anion Gap 8 mmol/L; Blood Urea Nitrogen 18 mg/dL (7-17); Calcium 9.3 mg/dL (8.4-10.2); Carbon Dioxide 22 mmol/L (22-30); Chloride 107 mmol/L (98-107); Glucose 104 mg/dL (74-99); Non-African American GFR(CKD) >90 (>60 ml/min/1.73 sqM); Potassium 4.3 mmol/L (3.5-5.1); Sodium 137 mmol/L (137-145); Total Bilirubin 0.3 mg/dL (0.2-1.3)
[2019-04-19 14:46] LABS: Basophils # (A) 0.1 k/uL (0-0.2); Basophils % (A) 1 %; Eosinophils # (A) 0.2 k/uL (0-0.7); Eosinophils % (A) 3 %; HCT 41.1 % (34.0-46.0); HGB 13.8 gm/dL (11.4-16.0); Lymphocytes # (A) 2.3 k/uL (1.0-4.8); Lymphocytes % (A) 27 %; MCH 30.1 pg (25.0-35.0); MCHC 33.5 g/dL (31.0-37.0); MCV 89.8 fL (80.0-100.0); Mean Platelet Volume 7.1; Monocytes # (A) 0.4 k/uL (0-1.0); Monocytes % (A) 5 %; Neutrophils # (A) 5.2 k/uL (1.3-7.7); Neutrophils % (A) 62 %; Platelet Count 289 k/uL (150-450); RBC 4.58 m/uL (3.80-5.40); RDW 12.9 % (11.5-15.5); WBC 8.3 k/uL (3.8-10.6)
[2019-04-19 16:06] VITALS: BP 134/89; PULSE 84; RESP 16; TEMP 98.7
== END 2019-04-19 16:09 | disposition home or self-care (01) ==
LOC: EC 13:19
DX: R42 Dizziness and giddiness (principal); R20.2 Paresthesia of skin; E11.9 Type 2 diabetes mellitus without complications; G47.30 Sleep apnea, unspecified; Z87.891 Personal history of nicotine dependence; Z99.89 Dependence on other enabling machines and devices
CPT/HCPCS: 36415; 71046; 80053; 84484; 85025; 93005; 96360; 99284

== ENCOUNTER 2019-09-19 11:25 | Emergency (ER) | payer MEDICARE, OTHER ==
[2019-09-19] MEDS ORDERED: SODIUM CHLORIDE 0.9% 1,000 ML IV STA (11:39)
[2019-09-19] MEDS ORDERED: KETOROLAC 30 MG/ML 1 ML VIAL IVP STA (11:39)
[2019-09-19 12:02] LABS: Basophils % (A) 0 %; Eosinophils # (A) 0.3 k/uL (0-0.7); Eosinophils % (A) 3 %; HCT 43.3 % (34.0-46.0); HGB 14.7 gm/dL (11.4-16.0); Lymphocytes # (A) 2.5 k/uL (1.0-4.8); Lymphocytes % (A) 21 %; MCHC 33.9 g/dL (31.0-37.0); MCV 91.3 fL (80.0-100.0); Mean Platelet Volume 6.9; Monocytes # (A) 0.5 k/uL (0-1.0); Monocytes % (A) 4 %; Neutrophils # (A) 8.5 k/uL (1.3-7.7); Neutrophils % (A) 70 %; Platelet Count 327 k/uL (150-450); RBC 4.74 m/uL (3.80-5.40); RDW 13.5 % (11.5-15.5); WBC 12.2 k/uL (3.8-10.6)
[2019-09-19 12:07] LABS: Appearance,Urine Clear (Clear); Bilirubin,Urine Negative (Negative); Blood,Urine Small (Negative); Color,Urine Yellow; Glucose,Urine (UA) Negative (Negative); Ketones,Urine Negative (Negative); Leukocyte Esterase,Urine Negative (Negative); Mucus,Urine Rare /hpf; Nitrite,Urine Negative (Negative); PH, Urine 5.5 (5.0-8.0); Protein,Urine Trace (Negative); RBC,Urine 3 /hpf (0-5); Specific Gravity,Urine 1.032 (1.001-1.035); Squamous Epithelial Cell,Urine 2 /hpf (0-4); Urobilinogen,Urine <2.0 mg/dL (<2.0); WBC,Urine 1 /hpf (0-5)
[2019-09-19 12:36] LABS: ALT 32 U/L (4-34); AST 37 U/L (14-36); African American GFR (CKD) >90 (>60 ml/min/1.73 sqM); Albumin 4.2 g/dL (3.5-5.0); Alkaline Phosphatase 67 U/L (38-126); Amylase 44 U/L (30-110); Anion Gap 8 mmol/L; Blood Urea Nitrogen 23 mg/dL (7-17); Calcium 9.5 mg/dL (8.4-10.2); Carbon Dioxide 23 mmol/L (22-30); Chloride 105 mmol/L (98-107); Glucose 94 mg/dL (74-99); Non-African American GFR(CKD) >90 (>60 ml/min/1.73 sqM); Potassium 4.2 mmol/L (3.5-5.1); Sodium 136 mmol/L (137-145); Total Bilirubin 0.4 mg/dL (0.2-1.3); Total Protein 7.6 g/dL (6.3-8.2)
--- NOTE | 2019-09-19 12:49 | ED ---
Abdominal Pain HPI - General Chief Complaint: Abdominal Pain Stated Complaint: L lower Abd pain Time Seen by Provider: 09/19/19 11:32 Source: patient, RN notes reviewed Mode of arrival: ambulatory Limitations: no limitations - History of Present Illness Initial Comments: 39-year-old female presents emergency Department chief complaint left-sided abdominal pain. Patient is a sudden onset of pain. Patient has no complaint of dysuria hematuria, diarrhea, constipation, hematochezia no fevers or chills. She states that nothing really makes the pain feel better or worse at this time she is no history kidney stones. She states that she's had a prior tubal ligation. Patient denies any chest pain, shortness breath. Denies any trauma. - Related Data Home Medications Medication Instructions Recorded Confirmed Amoxicillin 500 mg PO TID 09/19/19 09/19/19 Ibuprofen [Motrin] 800 mg PO Q8H 09/19/19 09/19/19 Multivitamins, Thera [Multivitamin 1 tab PO DAILY 09/19/19 09/19/19 (formulary)] [place]-3 Fatty Acids/Fish Oil [Fish 1 each PO DAILY 09/19/19 09/19/19 Oil 1,000 mg Softgel] Prazosin HCl 2 mg PO HS 09/19/19 09/19/19 Ziprasidone HCl [Geodon] 80 mg PO HS 09/19/19 09/19/19 cloNIDine HCL [Catapres] 0.1 mg PO BID 09/19/19 09/19/19 Previous Rx's Medication Instructions Recorded Amoxicillin/Potassium Clav 1 tab PO Q12HR #20 tab 09/19/19 [Augmentin 875-125 Tablet] Ibuprofen [Motrin] 600 mg PO Q8HR PRN #20 tab 09/19/19 Allergies Allergy/AdvReac Type Severity Reaction Status Date / Time No Known Allergies Allergy Verified 09/19/19 12:46 Review of Systems ROS Statement: Those systems with pertinent positive or pertinent negative responses have been documented in the HPI. ROS Other: All systems not noted in ROS Statement are negative. Past Medical History Past Medical History: GERD/Reflux, Sleep Apnea/CPAP/BIPAP Additional Past Medical History / Comment(s): Pt. has a hx. of DM but lost wt. and started exercising approx. one year ago and no longer needs oral diabetic meds. or diabetic diet; Pt. takes omeprazole otc, when needed for acid reflux; Pt. stated not using cpap machine. Pt. states she has chronic back pain but has no diagnosis and no prev. injury; Pt. has endometriosis and interstitial cystitis. History of Any Multi-Drug Resistant Organisms: None Reported Past Surgical History: Tubal Ligation Past Anesthesia/Blood Transfusion Reactions: No Reported Reaction Past Psychological History: Anxiety, Bipolar, Depression, PTSD Smoking Status: Former smoker Past Alcohol Use History: None Reported, Daily Past Drug Use History: None Reported - Past Family History Father Family Medical History: Cancer, Congestive Heart Failure (CHF), Diabetes Mellitus, Dialysis, Hypertension, Renal Disease General Exam Limitations: no limitations General appearance: alert, in no apparent distress Head exam: Present: atraumatic, normocephalic, normal inspection Eye exam: Present: normal appearance, PERRL, EOMI. Absent: scleral icterus, conjunctival injection, periorbital swelling ENT exam: Present: normal exam, normal oropharynx, mucous membranes moist Neck exam: Present: normal inspection, full ROM. Absent: tenderness, meningismus, lymphadenopathy Respiratory exam: Present: normal lung sounds bilaterally. Absent: respiratory distress, wheezes, rales, rhonchi, stridor Cardiovascular Exam: Present: regular rate, normal rhythm, normal heart sounds. Absent: systolic murmur, diastolic murmur, rubs, gallop, clicks GI/Abdominal exam: Present: soft, tenderness (Mild to moderate left-sided abdominal tenderness), normal bowel sounds. Absent: distended, guarding, rebound, rigid Back exam: Present: full ROM. Absent: tenderness, CVA tenderness (R), CVA tenderness (L) Neurological exam: Present: alert, oriented X3 Skin exam: Present: warm, dry, intact, normal color. Absent: rash Course Vital Signs 09/19/19 11:27 Temperature 98.3 F Pulse Rate 89 Respiratory 16 Rate Blood Pressure 147/94 O2 Sat by Pulse 99 Oximetry Medical Decision Making - Medical Decision Making 39-year-old female presented from for left-sided abdominal pain. CT shows evidence of mild diverticulitis of the descending colon. Patient has minimal leukocytosis vitals are otherwise stable. Patient is tolerating oral intake susu l be discharged on antibiotics, GERD and diet and close follow-up. - Lab Data Result diagrams: 09/19/19 11:50 09/19/19 11:50 Lab Results 09/19/19 09/19/19 09/19/19 Range/Units 11:50 11:50 11:50 WBC 12.2 H (3.8-10.6) k/uL RBC 4.74 (3.80-5.40) m/uL Hgb 14.7 (11.4-16.0) gm/dL Hct 43.3 (34.0-46.0) % MCV 91.3 (80.0-100.0) fL MCH 31.0 (25.0-35.0) pg MCHC 33.9 (31.0-37.0) g/dL RDW 13.5 (11.5-15.5) % Plt Count 327 (150-450) k/uL Neutrophils % 70 % Lymphocytes % 21 % Monocytes % 4 % Eosinophils % 3 % Basophils % 0 % Neutrophils # 8.5 H (1.3-7.7) k/uL Lymphocytes # 2.5 (1.0-4.8) k/uL Monocytes # 0.5 (0-1.0) k/uL Eosinophils # 0.3 (0-0.7) k/uL Basophils # 0.0 (0-0.2) k/uL Sodium (137-145) mmol/L Potassium (3.5-5.1) mmol/L Chloride (98-107) mmol/L Carbon Dioxide (22-30) mmol/L Anion Gap mmol/L BUN (7-17) mg/dL Creatinine (0.52-1.04) mg/dL Est GFR (CKD-EPI)AfAm (>60 ml/min/1.73 sqM) Est GFR (CKD-EPI)NonAf (>60 ml/min/1.73 sqM) Glucose (74-99) mg/dL Calcium (8.4-10.2) mg/dL Total Bilirubin (0.2-1.3) mg/dL AST (14-36) U/L ALT (4-34) U/L Alkaline Phosphatase (38-126) U/L Total Protein (6.3-8.2) g/dL Albumin (3.5-5.0) g/dL Amylase (30-110) U/L Lipase (23-300) U/L Urine Color Yellow Urine Appearance Clear (Clear) Urine pH 5.5 (5.0-8.0) Ur Specific [place] 1.032 (1.001-1.035) Urine Protein Trace H (Negative) Urine Glucose (UA) Negative (Negative) Urine Ketones Negative (Negative) Urine Blood Small H (Negative) Urine Nitrite Negative (Negative) Urine Bilirubin Negative (Negative) Urine Urobilinogen <2.0 (<2.0) mg/dL Ur Leukocyte Esterase Negative (Negative) Urine RBC 3 (0-5) /hpf Urine WBC 1 (0-5) /hpf Ur Squamous Epith Cells 2 (0-4) /hpf Urine Mucus Rare H (None) /hpf Urine HCG, Qual Not Detected (Not Detectd) 09/19/19 Range/Units 11:50 WBC (3.8-10.6) k/uL RBC (3.80-5.40) m/uL Hgb (11.4-16.0) gm/dL Hct (34.0-46.0) % MCV (80.0-100.0) fL MCH (25.0-35.0) pg MCHC (31.0-37.0) g/dL RDW (11.5-15.5) % Plt Count (150-450) k/uL Neutrophils % % Lymphocytes % % Monocytes % % Eosinophils % % Basophils % % Neutrophils # (1.3-7.7) k/uL Lymphocytes # (1.0-4.8) k/uL Monocytes # (0-1.0) k/uL Eosinophils # (0-0.7) k/uL Basophils # (0-0.2) k/uL Sodium 136 L (137-145) mmol/L Potassium 4.2 (3.5-5.1) mmol/L Chloride 105 (98-107) mmol/L Carbon Dioxide 23 (22-30) mmol/L Anion Gap 8 mmol/L BUN 23 H (7-17) mg/dL Creatinine 0.53 (0.52-1.04) mg/dL Est GFR (CKD-EPI)AfAm >90 (>60 ml/min/1.73 sqM) Est GFR (CKD-EPI)NonAf >90 (>60 ml/min/1.73 sqM) Glucose 94 (74-99) mg/dL Calcium 9.5 (8.4-10.2) mg/dL Total Bilirubin 0.4 (0.2-1.3) mg/dL AST 37 H (14-36) U/L ALT 32 (4-34) U/L Alkaline Phosphatase 67 (38-126) U/L Total Protein 7.6 (6.3-8.2) g/dL Albumin 4.2 (3.5-5.0) g/dL Amylase 44 (30-110) U/L Lipase 86 (23-300) U/L Urine Color Urine Appearance (Clear) Urine pH (5.0-8.0) Ur Specific [place] (1.001-1.035) Urine Protein (Negative) Urine Glucose (UA) (Negative) Urine Ketones (Negative) Urine Blood (Negative) Urine Nitrite (Negative) Urine Bilirubin (Negative) Urine Urobilinogen (<2.0) mg/dL Ur Leukocyte Esterase (Negative) Urine RBC (0-5) /hpf Urine WBC (0-5) /hpf Ur Squamous Epith Cells (0-4) /hpf Urine Mucus (None) /hpf Urine HCG, Qual (Not Detectd) Disposition Clinical Impression: Acute diverticulitis Disposition: HOME SELF-CARE Condition: Stable Instructions (If sedation given, give patient instructions): Diverticulitis Diet (ED), Diverticulitis (ED) Additional Instructions: Please return to the Emergency Department if symptoms worsen or any other concerns. Prescriptions: Amoxicillin/Potassium Clav [Augmentin 875-125 Tablet] 1 tab PO Q12HR #20 tab Ibuprofen [Motrin] 600 mg PO Q8HR PRN #20 tab PRN Reason: Pain Is patient prescribed a controlled substance at d/c from ED?: No Referrals: [facility] [Primary Care Provider] - 1-2 days Time of Disposition: 13:02
--- NOTE | 2019-09-19 12:57 | CT ---
EXAMINATION TYPE: CT abdomen pelvis w con DATE OF EXAM: 09/19/2019 REFERENCE: NONE HISTORY: LLQ pain HISTORY: LLQ pain radiating around to her back CT DLP: 2270.9 mGy Automated exposure control for dose reduction was used. TECHNIQUE: Helical acquisition through the abdomen and pelvis was obtained following the oral ingesti on of without Oral Contrast and following intravenous administration of 100 mL of Isovue 300. The shavon a was reformatted in axial, coronal and sagittal projections. FINDINGS: Visualized portions of the lungs are clear. There is no pleural or pericardial fluid. The heart is not enlarged. Within the abdomen, the liver is enlarged measuring 23 cm. It is low in attenuation and likely fatty infiltrated. The spleen and gallbladder are normal. Both adrenal glands are normal. Both kidneys demonstrate function and appear morphologically normal. The pancreas is unremarkable. There is no significant retroperitoneal, iliac or inguinal adenopathy. The bladder is normal. The uterus is unremarkable. There is a 4.1 cm left ovarian cyst. The right ovary has a more normal ap pearance. There are scattered diverticula along the left side of the colon. There is a small amount of pericoli c fluid and inflammatory change near the mid descending colon. This may represent mild diverticulitis . The remainder the colon is unremarkable. The appendix is not seen with certainty. Small bowel loops are of normal caliber. There is no free fluid and no free air identified. There is degenerative disc disease, hypertrophic spondylosis and a vacuum phenomena present at L5-S1. IMPRESSION: 1. MILD DIVERTICULITIS OF THE MID DESCENDING COLON. 2. 4.1 CM LEFT ADNEXAL CYST. 3. HEPATOMEGALY AND FATTY INFILTRATION OF THE LIVER. 4. DEGENERATIVE CHANGES WITHIN THE SPINE.
[2019-09-19] MEDS ORDERED: cefTRIAXone IN SWFI 1,000 MG/10 ML SYRINGE IVP STA (13:03)
[2019-09-19 13:30] VITALS: BP 140/85; PULSE 85; RESP 18; TEMP 98.1
== END 2019-09-19 13:29 | disposition home or self-care (01) ==
LOC: EC 11:25
DX: K57.32 Diverticulitis of large intestine without perforation or abscess without bleeding (principal); K21.9 Gastro-esophageal reflux disease without esophagitis; E11.9 Type 2 diabetes mellitus without complications; G47.30 Sleep apnea, unspecified; Z87.891 Personal history of nicotine dependence; Z99.89 Dependence on other enabling machines and devices
CPT/HCPCS: 36415; 80053; 82150; 83690; 85025; 81001; 81025; 74177; 99284; 96374; 96375; 96361 ×2; J0696; J1885; Q9967

== ENCOUNTER 2019-11-01 08:29 | Emergency (ER) | payer MEDICARE, OTHER ==
[2019-11-01 08:35] VITALS: RESP 18; TEMP 98.3
--- NOTE | 2019-11-01 08:49 | ED ---
Abdominal Pain HPI - General Source: patient Mode of arrival: ambulatory Limitations: no limitations <Rachele Short - Last Filed: 11/01/19 12:03> <Silva Post - Last Filed: 11/02/19 15:52> - General Chief Complaint: Abdominal Pain Stated Complaint: Abd pain Time Seen by Provider: 11/01/19 08:36 - History of Present Illness Initial Comments: 39-year-old female presenting today for chief complaint of left lower quadrant abdominal pain nausea. Patient states the past day she has had left lower quadrant abdominal pain and nausea. She states it feels similar when she's had diverticulitis in the past. Patient denies fevers admits to chills. Admits to general malaise. Patient denies chest pain, SOB, vomiting. Patient denies recording fevers. Admits to some loose stools, denies constipation. Denies lower pelvic pain, , vaginal bleeding/discharge. Denies additional complaints. Denies radiation of pain. Denies specific alleviating and aggravating factors. (Rachele Short) - Related Data Home Medications Medication Instructions Recorded Confirmed Multivitamins, Thera [Multivitamin 1 tab PO DAILY 09/19/19 11/01/19 (formulary)] [place]-3 Fatty Acids/Fish Oil [Fish 1 each PO DAILY 09/19/19 11/01/19 Oil 1,000 mg Softgel] cloNIDine HCL [Catapres] 0.1 mg PO BID 09/19/19 11/01/19 Metoprolol Tartrate 25 mg PO DAILY 11/01/19 11/01/19 Previous Rx's Medication Instructions Recorded Amoxic-Pot Clav 875-125Mg 1 tab PO Q12HR 7 Days #14 tab 11/01/19 [Augmentin 875-125] Allergies Allergy/AdvReac Type Severity Reaction Status Date / Time No Known Allergies Allergy Verified 11/01/19 09:56 Review of Systems ROS Other: All systems not noted in ROS Statement are negative. <Rachele Short - Last Filed: 11/01/19 12:03> ROS Other: All systems not noted in ROS Statement are negative. <Silva Post - Last Filed: 11/02/19 15:52> ROS Statement: Those systems with pertinent positive or pertinent negative responses have been documented in the HPI. Past Medical History Past Medical History: GERD/Reflux, Sleep Apnea/CPAP/BIPAP Additional Past Medical History / Comment(s): Pt. has a hx. of DM but lost wt. and started exercising approx. one year ago and no longer needs oral diabetic meds. or diabetic diet; Pt. takes omeprazole otc, when needed for acid reflux; Pt. stated not using cpap machine. Pt. states she has chronic back pain but has no diagnosis and no prev. injury; Pt. has endometriosis and interstitial cystitis. History of Any Multi-Drug Resistant Organisms: None Reported Past Surgical History: Tubal Ligation Past Anesthesia/Blood Transfusion Reactions: No Reported Reaction Past Psychological History: Anxiety, Bipolar, Depression, PTSD Smoking Status: Former smoker Past Alcohol Use History: None Reported, Daily Past Drug Use History: None Reported - Past Family History Father Family Medical History: Cancer, Congestive Heart Failure (CHF), Diabetes Mellitus, Dialysis, Hypertension, Renal Disease <Rachele Short - Last Filed: 11/01/19 12:03> General Exam Limitations: no limitations <Rachele Short - Last Filed: 11/01/19 12:03> - General Exam Comments Initial Comments: General: The patient is awake and alert, in no distress Eye: +3 mm pupils are equal, round and reactive to light, extra-ocular movements are intact. No nystagmus. There is normal conjunctiva bilaterally. No signs of icterus. Ears, nose, mouth and throat: There are moist mucous membranes and no oral lesions. Neck: The neck is supple, there is no tenderness or JVD. Cardiovascular: There is a regular rate and rhythm. No murmur, rub or gallop is appreciated. Respiratory: Lungs are clear to auscultation, respirations are non-labored, breath sounds are equal. No wheezes, stridor, rales, or rhonchi. Gastrointestinal: Soft, non-distended, LLQ tenderness to palpation of the abdomen without masses or organomegaly noted. There is no rebound or guarding present. Musculoskeletal: Normal ROM, no tenderness. Strength 5/5. Sensation intact. Pulses equal bilaterally 2+. Neurological: A&O x 3. CN II-XII intact grossly, There are no obvious motor or sensory deficits. Coordination appears grossly intact. Speech is normal. Skin: Skin is warm and dry and no rashes or lesions are noted. Psychiatric: Cooperative, appropriate mood & affect, normal judgment. (Rachele Short) Course Vital Signs 11/01/19 11/01/19 08:31 11:51 Temperature 98.3 F Pulse Rate 69 89 Respiratory 18 18 Rate Blood Pressure 114/74 137/89 O2 Sat by Pulse 99 99 Oximetry Medical Decision Making - Lab Data Result diagrams: 11/01/19 08:47 11/01/19 08:47 <Rachele Short - Last Filed: 11/01/19 12:03> - Lab Data Result diagrams: 11/01/19 08:47 11/01/19 08:47 <Silva Post - Last Filed: 11/02/19 15:52> - Medical Decision Making Labs stable. CT (-) for diverticulitis. Patient given morphine for pain. US revealed no evidence of torsion or acute process, patient will be discharged with diverticular diet/augmentin as i cannot r/o an early developing diverticulitis. Patient is agreeable to care plan and discharge. She is to f/u with GI i recommended colonoscopy. (Rachele Short) I was available for consultation in the emergency department. The history and physical exam were done by the midlevel provider. I was consulted for this ilana ents care. I reviewed the case with the midlevel provider and based on their presentation of the patient, I agree with the assessment, medical decision making and plan of care as documented. Chart was dictated using [employer] dictation software. Attempts were made to correct any dictation errors however some typographical errors may persist. Patient was seen during a national state of emergency due to the Covid-19 pandemic. (Silva Post) - Lab Data Lab Results 11/01/19 11/01/19 11/01/19 Range/Units 08:47 08:47 08:47 WBC 9.6 (3.8-10.6) k/uL RBC 4.30 (3.80-5.40) m/uL Hgb 13.0 (11.4-16.0) gm/dL Hct 38.9 (34.0-46.0) % MCV 90.6 (80.0-100.0) fL MCH 30.2 (25.0-35.0) pg MCHC 33.3 (31.0-37.0) g/dL RDW 13.4 (11.5-15.5) % Plt Count 304 (150-450) k/uL Neutrophils % 63 % Lymphocytes % 27 % Monocytes % 5 % Eosinophils % 3 % Basophils % 1 % Neutrophils # 6.1 (1.3-7.7) k/uL Lymphocytes # 2.5 (1.0-4.8) k/uL Monocytes # 0.5 (0-1.0) k/uL Eosinophils # 0.3 (0-0.7) k/uL Basophils # 0.1 (0-0.2) k/uL Sodium 136 L (137-145) mmol/L Potassium 4.3 (3.5-5.1) mmol/L Chloride 104 (98-107) mmol/L Carbon Dioxide 24 (22-30) mmol/L Anion Gap 8 mmol/L BUN 16 (7-17) mg/dL Creatinine 0.64 (0.52-1.04) mg/dL Est GFR (CKD-EPI)AfAm >90 (>60 ml/min/1.73 sqM) Est GFR (CKD-EPI)NonAf >90 (>60 ml/min/1.73 sqM) Glucose 97 (74-99) mg/dL Calcium 9.2 (8.4-10.2) mg/dL Total Bilirubin 0.4 (0.2-1.3) mg/dL AST 44 H (14-36) U/L ALT 43 H (4-34) U/L Alkaline Phosphatase 64 (38-126) U/L Total Protein 7.0 (6.3-8.2) g/dL Albumin 4.1 (3.5-5.0) g/dL Amylase 32 (30-110) U/L Lipase 72 (23-300) U/L Urine Color Yellow Urine Appearance Cloudy H (Clear) Urine pH 5.5 (5.0-8.0) Ur Specific [place] 1.019 (1.001-1.035) Urine Protein Negative (Negative) Urine Glucose (UA) Negative (Negative) Urine Ketones Negative (Negative) Urine Blood Negative (Negative) Urine Nitrite Negative (Negative) Urine Bilirubin Negative (Negative) Urine Urobilinogen <2.0 (<2.0) mg/dL Ur Leukocyte Esterase Small H (Negative) Urine RBC 1 (0-5) /hpf Urine WBC 13 H (0-5) /hpf Ur Squamous Epith Cells 8 H (0-4) /hpf Urine Bacteria Rare H (None) /hpf Urine Mucus Rare H (None) /hpf - EKG Data EKG Comments: Ventricular rate 53 bpm, UT interval 134 ms, QR hindu 80 ms, QT/QTC 420/394. This is sinus bradycardia no ST elevation or depression. (Rachele Short) Disposition Is patient prescribed a controlled substance at d/c from ED?: No Time of Disposition: 11:20 <Rachele Short - Last Filed: 11/01/19 12:03> <Silva Post - Last Filed: 11/02/19 15:52> Clinical Impression: LLQ pain, Nausea Disposition: HOME SELF-CARE Condition: Good Instructions (If sedation given, give patient instructions): Diverticulosis (ED), Diverticulitis Diet (ED) Additional Instructions: Please use medication as discussed. Please follow-up with family doctor in the next 2 days. Please return to emergency room if the symptoms increase or worsen or for any other concerns. Prescriptions: Amoxic-Pot Clav 875-125Mg [Augmentin 875-125] 1 tab PO Q12HR 7 Days #14 tab [facility] [Primary Care Provider] - 1-2 days Rebecca Lott MD [STAFF PHYSICIAN] - 1-2 days
[2019-11-01 08:52] LABS: Basophils # (A) 0.1 k/uL (0-0.2); Basophils % (A) 1 %; Eosinophils # (A) 0.3 k/uL (0-0.7); Eosinophils % (A) 3 %; HCT 38.9 % (34.0-46.0); Lymphocytes # (A) 2.5 k/uL (1.0-4.8); Lymphocytes % (A) 27 %; MCH 30.2 pg (25.0-35.0); MCHC 33.3 g/dL (31.0-37.0); MCV 90.6 fL (80.0-100.0); Mean Platelet Volume 7.1; Monocytes # (A) 0.5 k/uL (0-1.0); Monocytes % (A) 5 %; Neutrophils # (A) 6.1 k/uL (1.3-7.7); Neutrophils % (A) 63 %; Platelet Count 304 k/uL (150-450); RDW 13.4 % (11.5-15.5); WBC 9.6 k/uL (3.8-10.6)
[2019-11-01 09:07] LABS: Appearance,Urine Cloudy (Clear); Bacteria,Urine Rare /hpf; Bilirubin,Urine Negative (Negative); Blood,Urine Negative (Negative); Color,Urine Yellow; Glucose,Urine (UA) Negative (Negative); Ketones,Urine Negative (Negative); Leukocyte Esterase,Urine Small (Negative); Mucus,Urine Rare /hpf; Nitrite,Urine Negative (Negative); PH, Urine 5.5 (5.0-8.0); Protein,Urine Negative (Negative); RBC,Urine 1 /hpf (0-5); Specific Gravity,Urine 1.019 (1.001-1.035); Squamous Epithelial Cell,Urine 8 /hpf (0-4); Urobilinogen,Urine <2.0 mg/dL (<2.0); WBC,Urine 13 /hpf (0-5)
[2019-11-01 09:08] LABS: ALT 43 U/L (4-34); AST 44 U/L (14-36); African American GFR (CKD) >90 (>60 ml/min/1.73 sqM); Albumin 4.1 g/dL (3.5-5.0); Alkaline Phosphatase 64 U/L (38-126); Amylase 32 U/L (30-110); Anion Gap 8 mmol/L; Blood Urea Nitrogen 16 mg/dL (7-17); Calcium 9.2 mg/dL (8.4-10.2); Carbon Dioxide 24 mmol/L (22-30); Chloride 104 mmol/L (98-107); Glucose 97 mg/dL (74-99); Non-African American GFR(CKD) >90 (>60 ml/min/1.73 sqM); Potassium 4.3 mmol/L (3.5-5.1); Sodium 136 mmol/L (137-145); Total Bilirubin 0.4 mg/dL (0.2-1.3)
--- NOTE | 2019-11-01 09:46 | CT ---
EXAMINATION TYPE: CT abdomen pelvis w con DATE OF EXAM: 11/01/2019 COMPARISON: 09/19/2019 HISTORY: Abdominal pain, diverticulitis suspected CT DLP: 2167.1 mGycm CONTRAST: CT scan of the abdomen and pelvis is performed without Oral Contrast and with IV Contrast, patient in jected with 100 ml mL of Isovue 300. FINDINGS: LUNG BASES-: No visible nodule. No infiltrate. LIVER/GB: No calcified gallstones. Hepatic steatosis and mild hepatomegaly. No space occupying hep atic lesion. Biliary tree is of normal caliber. PANCREAS: No inflammation. No distinct mass. SPLEEN: No splenic enlargement. No lesion seen. ADRENALS: No nodule. No thickening. KIDNEYS/BLADDER: No hydronephrosis. No nephrolithiasis. No distinct renal mass. Urinary bladder g rossly unremarkable. BOWEL: Normal appendix. Normal bowel caliber. Previously noted features of the descending colonic di verticulitis have resolved. No new areas of diverticulitis at this time. No abscess or free air. GENITAL ORGANS: Right ovarian cystic lesion. The uterus and left ovary are unremarkable. LYMPH NODES: No greater than 1cm abdominal or pelvic lymph nodes are appreciated. AORTA: No significant abnormality. OSSEOUS STRUCTURES: No significant abnormality is seen. OTHER: No significant additional abnormality is seen. IMPRESSION: 1. Previously noted features of the descending colonic diverticulitis have resolved. No new areas of diverticulitis at this time. 2. Hepatic steatosis with hepatomegaly. 3. New right ovarian cyst with resolution previously noted left ovarian cyst.
[2019-11-01] MEDS ORDERED: MORPHINE SULFATE 2 MG/ML SYRINGE IVP STA (10:07)
--- NOTE | 2019-11-01 11:15 | US ---
EXAMINATION TYPE: US transvaginal DATE OF EXAM: 11/01/2019 COMPARISON: NONE CLINICAL HISTORY: LLQ Pain. LLQ pain, endometriosis, tubal ligation, irregular menses TECHNIQUE: Transvaginal (TV). Date of LMP: unknown EXAM MEASUREMENTS: Uterus: 8.8 x 4.0 x 5.7 cm Endometrial Stripe: 1.0 cm Right Ovary: 4.4 x 3.7 x 3.1 cm Left Ovary: 2.2 x 1.5 x 1.3 cm 1. Uterus: Anteverted 2. Endometrium: appears wnl 3. Right Ovary: cystic area = 4.0 x 3.3 x 2.9cm, very little ovarian tissue visualized making it dif ficult to show vascularity, arterial flow noted 4. Left Ovary: dominant follicle = 1.4cm Spectral, color and waveform doppler imaging shows good arterial and venous flow within the ovaries ; there is no evidence for ovarian torsion. 5. Bilateral Adnexa: appears wnl 6. Posterior cul-de-sac: wnl IMPRESSION: 1. Complex cyst right ovary
[2019-11-01] MEDS ORDERED: ACET/COD 300 MG/30 MG STARTER PACK 6 TAB BTL PO STA (11:27)
[2019-11-01 11:52] VITALS: BP 137/89; PULSE 89
== END 2019-11-01 11:51 | disposition home or self-care (01) ==
LOC: EC 08:29
DX: R10.32 Left lower quadrant pain (principal); R11.0 Nausea; R53.81 Other malaise; R19.5 Other fecal abnormalities; K21.9 Gastro-esophageal reflux disease without esophagitis; E11.9 Type 2 diabetes mellitus without complications; G47.30 Sleep apnea, unspecified; Z99.89 Dependence on other enabling machines and devices; Z87.891 Personal history of nicotine dependence
CPT/HCPCS: 36415; 93005; 80053; 82150; 83690; 85025; 81001; 87086; 93975; 76830; 74177; 99284; 96374; J2270; Q9967

== ENCOUNTER 2020-02-13 16:42 | Emergency (ER) | payer MEDICARE, OTHER ==
[2020-02-13 17:39] VITALS: RESP 18
[2020-02-13] MEDS ORDERED: KETOROLAC 15 MG/ML 1 ML VIAL IM STA (18:51)
[2020-02-13] MEDS ORDERED: ORPHENADRINE 30 MG/ML 2 ML VIAL IM STA (18:51)
--- NOTE | 2020-02-13 18:55 | ED ---
General Adult HPI - General Chief complaint: Back Pain/Injury Stated complaint: Back Injury Time Seen by Provider: 02/13/20 18:43 Source: patient, RN notes reviewed Mode of arrival: wheelchair Limitations: no limitations - History of Present Illness Initial comments: 39-year-old female with a past medical history of chronic back pain, GERD, tubal ligation presents to the emergency department for a chief complaint of right mid back pain. Patient reports that earlier today she was at work and was carrying heavy bags on her left shoulder. States that she was using the right side of her back to support these. Patient felt a pull in the right side of her back but states she kept walking and the pain got worse. She states that when she sat on the bags she had a severe pain on the right side. Patient denies any radiating pain. Denies any weakness of the lower extremity. Reports that movement makes this pain worse.denies bladder or bowel changes. Denies numbness or tingling of the lower extremities. Patient has no other complaints at this time including shortness of breath, chest pain, abdominal pain, nausea or vomiting, headache, or visual changes. - Related Data Home Medications Medication Instructions Recorded Confirmed Multivitamins, Thera [Multivitamin 1 tab PO DAILY 09/19/19 11/01/19 (formulary)] [place]-3 Fatty Acids/Fish Oil [Fish 1 each PO DAILY 09/19/19 11/01/19 Oil 1,000 mg Softgel] cloNIDine HCL [Catapres] 0.1 mg PO BID 09/19/19 11/01/19 Metoprolol Tartrate 25 mg PO DAILY 11/01/19 11/01/19 Previous Rx's Medication Instructions Recorded Amoxic-Pot Clav 875-125Mg 1 tab PO Q12HR 7 Days #14 tab 11/01/19 [Augmentin 875-125] Cyclobenzaprine [Flexeril] 10 mg PO TID #10 tab 02/13/20 Ibuprofen [Motrin] 600 mg PO Q8HR PRN #20 tab 02/13/20 Allergies Allergy/AdvReac Type Severity Reaction Status Date / Time No Known Allergies Allergy Verified 02/13/20 17:39 Review of Systems ROS Statement: Those systems with pertinent positive or pertinent negative responses have been documented in the HPI. ROS Other: All systems not noted in ROS Statement are negative. Past Medical History Past Medical History: GERD/Reflux, Sleep Apnea/CPAP/BIPAP Additional Past Medical History / Comment(s): Pt. has a hx. of DM but lost wt. and started exercising approx. one year ago and no longer needs oral diabetic meds. or diabetic diet; Pt. takes omeprazole otc, when needed for acid reflux; Pt. stated not using cpap machine. Pt. states she has chronic back pain but has no diagnosis and no prev. injury; Pt. has endometriosis and interstitial cystitis. History of Any Multi-Drug Resistant Organisms: None Reported Past Surgical History: Tubal Ligation Past Anesthesia/Blood Transfusion Reactions: No Reported Reaction Past Psychological History: Anxiety, Bipolar, Depression, PTSD Smoking Status: Former smoker Past Alcohol Use History: None Reported, Daily Past Drug Use History: None Reported - Past Family History Father Family Medical History: Cancer, Congestive Heart Failure (CHF), Diabetes Mellitus, Dialysis, Hypertension, Renal Disease General Exam Limitations: no limitations General appearance: alert, in no apparent distress Head exam: Present: atraumatic, normocephalic, normal inspection Eye exam: Present: normal appearance, PERRL, EOMI. Absent: scleral icterus, conjunctival injection, periorbital swelling ENT exam: Present: normal exam, mucous membranes moist Neck exam: Present: normal inspection, full ROM. Absent: tenderness, meningismus, lymphadenopathy Respiratory exam: Present: normal lung sounds bilaterally. Absent: respiratory distress, wheezes, rales, rhonchi, stridor Cardiovascular Exam: Present: regular rate, normal rhythm, normal heart sounds. Absent: systolic murmur, diastolic murmur, rubs, gallop, clicks GI/Abdominal exam: Present: soft, normal bowel sounds. Absent: distended, tenderness, guarding, rebound, rigid Extremities exam: Present: normal capillary refill (cap refill < 2 seconds in BLE) Back exam: Present: paraspinal tenderness (Right sided lumbar paraspinal tenderness). Absent: CVA tenderness (R), CVA tenderness (L) Neurological exam: Present: alert Course Vital Signs 02/13/20 02/13/20 17:36 18:58 Temperature 98.2 F Pulse Rate 78 Respiratory 18 18 Rate Blood Pressure 119/80 O2 Sat by Pulse 98 Oximetry Medical Decision Making - Medical Decision Making Patient is well-appearing. No red flag symptoms. Patient symptoms are consistent with muscular scheduled back pain secondary to injury earlier today. There is no blunt trauma, I do not suspect fracture. She has no spine tenderness, pain is paraspinal. Urinalysis is negative, no CVA tenderness. Patient was given pain medication and had significant improvement in pain. Patient will follow up with her doctor. She will return here for any worsening symptoms which were discussed with her. - Lab Data Lab Results 02/13/20 Range/Units 18:58 Urine Color Yellow Urine Appearance Clear (Clear) Urine pH 6.0 (5.0-8.0) Ur Specific [place] 1.028 (1.001-1.035) Urine Protein Negative (Negative) Urine Glucose (UA) Negative (Negative) Urine Ketones Negative (Negative) Urine Blood Negative (Negative) Urine Nitrite Negative (Negative) Urine Bilirubin Negative (Negative) Urine Urobilinogen <2.0 (<2.0) mg/dL Ur Leukocyte Esterase Negative (Negative) Disposition Clinical Impression: Back pain Disposition: HOME SELF-CARE Condition: Good Instructions (If sedation given, give patient instructions): Acute Low Back Pain (ED) Additional Instructions: Please take Motrin for pain. If pain is uncontrolled take Tylenol [address] work while taking this. You may take muscle relaxer at night or when you're not driving or working. Follow-up with your doctor. If you have any worsening symptoms such as worsening pain, fevers, bladder or bowel changes, weakness of the legs, or tingling in the groin her buttock return to the emergency room. Prescriptions: Cyclobenzaprine [Flexeril] 10 mg PO TID #10 tab Ibuprofen [Motrin] 600 mg PO Q8HR PRN #20 tab PRN Reason: Pain Is patient prescribed a controlled substance at d/c from ED?: No Referrals: [facility] [Primary Care Provider] - 1-2 days Time of Disposition: 19:58
[2020-02-13 19:24] LABS: Appearance,Urine Clear (Clear); Bilirubin,Urine Negative (Negative); Blood,Urine Negative (Negative); Color,Urine Yellow; Glucose,Urine (UA) Negative (Negative); Ketones,Urine Negative (Negative); Leukocyte Esterase,Urine Negative (Negative); Nitrite,Urine Negative (Negative); Protein,Urine Negative (Negative); Specific Gravity,Urine 1.028 (1.001-1.035); Urobilinogen,Urine <2.0 mg/dL (<2.0)
[2020-02-13] MEDS ORDERED: MORPHINE SULFATE 4 MG/ML SYRINGE IM STA (19:35)
[2020-02-13] MEDS ORDERED: ACET/COD 300 MG/30 MG STARTER PACK 6 TAB BTL PO STA (20:00)
[2020-02-13 20:55] VITALS: BP 144/92; PULSE 65; TEMP 97.8
== END 2020-02-13 20:55 | disposition home or self-care (01) ==
LOC: EC 16:42
DX: S29.9XXA Unspecified injury of thorax, initial encounter (principal); K21.9 Gastro-esophageal reflux disease without esophagitis; F41.9 Anxiety disorder, unspecified; F31.9 Bipolar disorder, unspecified; F43.10 Post-traumatic stress disorder, unspecified; Z79.899 Other long term (current) drug therapy; Z87.891 Personal history of nicotine dependence; X50.0XXA Overexertion from strenuous movement or load, initial encounter; Y93.89 Activity, other specified; Y92.69 Other specified industrial and construction area as the place of occurrence of the external cause
CPT/HCPCS: 96372 ×4; 99283 ×2; 81003; J2270; J2360; J1885

== ENCOUNTER → 2020-05-15 | Outpatient (CLI) | payer MEDICARE, OTHER ==
--- NOTE | 2020-05-15 11:48 | XR ---
EXAMINATION TYPE: XR foot complete RT DATE OF EXAM: 05/15/2020 COMPARISON: NONE HISTORY: 39-year-old female right foot pain along the arch, M79.671 TECHNIQUE: 3 views FINDINGS: Mild bony hypertrophy along the medial aspect of the first metatarsal head. Small to moderate-sized p lantar calcaneal spur. There is thickening at the origin of the plantar fascia on the lateral view up to 7 mm. Smooth delineation to the Achilles tendon. No acute fracture, subluxation, or dislocation. IMPRESSION: 1. Small to moderate sized plantar heel spur but with thickening at the origin of the plantar fascia just adjacent can be seen with plantar fasciitis. Clinically correlate. 2. Mild bunion formation.
== END | disposition home or self-care (01) ==
LOC: RADXRMAIN 09:48
PROVIDERS: ATTEND Nurse Practitioner Family
DX: M77.31 Calcaneal spur, right foot (principal); M21.611 Bunion of right foot; M25.871 Other specified joint disorders, right ankle and foot

== ENCOUNTER 2020-06-18 13:46 | Emergency (ER) | payer MEDICARE, OTHER ==
--- NOTE | 2020-06-18 14:25 | ED ---
General Adult HPI - General Chief complaint: Fever Stated complaint: Fever,weakness,Dizziness Time Seen by Provider: 06/18/20 13:54 Source: patient Mode of arrival: ambulatory Limitations: no limitations - History of Present Illness Initial comments: Dictation was produced using [employer] dictation software. please excuse any grammatical, word or spelling errors. This patient was cared for during a federal and state declared state of emergency secondary to Covid 19 Chief Complaint: 39-year-old female with past medical history of GERD, sleep apnea presents emergency part for fever, weakness constitutional symptoms History of Present Illness: 39 [id number] female she states for the last few months she's been having frequent recurrent episodes of constitutional symptoms. She feels like her skin is burning. States that she feels feverish. She does complain of nausea. Denies any vomiting. No diarrhea. She has no pain comp laints. She was tested: [place] 3 weeks ago. 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 Patient also has secondary complaint of left second toe pain that has been ongoing for several weeks. She notes discoloration of her toes patient states that it looks like her toenail is starting to fall off of the skin. The ROS documented in this emergency department record has been reviewed and c onfirmed by me. Those systems with pertinent positive or negative responses have been documented in the HPI. All other systems are other negative and/or noncontributory. PHYSICAL EXAM: General Impression: Alert and oriented x3, not in acute distress HEENT: Normocephalic atraumatic, extra-ocular movements intact, pupils equal and reactive to light bilaterally, mucous membranes moist. Cardiovascular: Heart regular rate and rhythm Chest: Able to complete full sentences, no retractions, no tachypnea Abdomen: abdomen soft, non-tender, non-distended, no organomegaly Musculoskeletal: Pulses present and equal in all extremities, no peripheral edema Motor: no focal deficits noted Neurological: CN II-XII grossly intact, no focal motor or sensory deficits noted Skin: Intact with no visualized rashes Psych: Normal affect and mood Left foot: Discolored toenails of first, second and fifth. There is some scaling of the skin ED course:39 yo female presents with constitutional symptoms that are chronic and recurrent. She also has clinical presentation consistent with fungal toe infection. Vital signs upon arrival are within acceptable limits. Laboratory evaluation obtained. CBC, metabolic panel is unremarkable. Urinalysis shows 182 red blood cells. Patient is not . She is on her period to explain the 182 red blood cells per coronavirus is negative. Chest x- ray is nonacute. TSH is normal. Patient given topical treatment for fungal foot infection. - Related Data Home Medications Medication Instructions Recorded Confirmed Multivitamins, Thera [Multivitamin 1 tab PO DAILY 09/19/19 11/01/19 (formulary)] [place]-3 Fatty Acids/Fish Oil [Fish 1 each PO DAILY 09/19/19 11/01/19 Oil 1,000 mg Softgel] cloNIDine HCL [Catapres] 0.1 mg PO BID 09/19/19 11/01/19 Metoprolol Tartrate 25 mg PO DAILY 11/01/19 11/01/19 Previous Rx's Medication Instructions Recorded Amoxic-Pot Clav 875-125Mg 1 tab PO Q12HR 7 Days #14 tab 11/01/19 [Augmentin 875-125] Cyclobenzaprine [Flexeril] 10 mg PO TID #10 tab 02/13/20 Ibuprofen [Motrin] 600 mg PO Q8HR PRN #20 tab 02/13/20 Ciclopirox Olamine [Ciclopirox 1 applic TOPICAL DAILY 120 Days #1 06/18/20 0.77% Topical Susp.] tube Allergies Allergy/AdvReac Type Severity Reaction Status Date / Time No Known Allergies Allergy Verified 06/18/20 13:54 Review of Systems ROS Statement: Those systems with pertinent positive or pertinent negative responses have been documented in the HPI. ROS Other: All systems not noted in ROS Statement are negative. Past Medical History Past Medical History: GERD/Reflux, Sleep Apnea/CPAP/BIPAP Additional Past Medical History / Comment(s): Pt. has a hx. of DM but lost wt. and started exercising approx. one year ago and no longer needs oral diabetic meds. or diabetic diet; Pt. takes omeprazole otc, when needed for acid reflux; Pt. stated not using cpap machine. Pt. states she has chronic back pain but has no diagnosis and no prev. injury; Pt. has endometriosis and interstitial cystitis. History of Any Multi-Drug Resistant Organisms: None Reported Past Surgical History: Tubal Ligation Past Anesthesia/Blood Transfusion Reactions: No Reported Reaction Past Psychological History: Anxiety, Bipolar, Depression, PTSD Smoking Status: Former smoker Past Alcohol Use History: None Reported, Daily Past Drug Use History: None Reported - Past Family History Father Family Medical History: Cancer, Congestive Heart Failure (CHF), Diabetes Mellitus, Dialysis, Hypertension, Renal Disease General Exam Limitations: no limitations Course Vital Signs 06/18/20 06/18/20 06/18/20 13:50 13:54 14:54 Temperature 98.4 F Pulse Rate 89 92 86 Respiratory 16 18 18 Rate Blood Pressure 135/95 133/88 137/100 O2 Sat by Pulse 98 96 96 Oximetry 06/18/20 15:35 Temperature 98.6 F Pulse Rate 84 Respiratory 18 Rate Blood Pressure 137/97 O2 Sat by Pulse 96 Oximetry Medical Decision Making - Lab Data Result diagrams: 06/18/20 15:01 06/18/20 15:01 Lab Results 06/18/20 06/18/20 06/18/20 Range/Units 14:12 14:12 14:12 WBC (3.8-10.6) k/uL RBC (3.80-5.40) m/uL Hgb (11.4-16.0) gm/dL Hct (34.0-46.0) % MCV (80.0-100.0) fL MCH (25.0-35.0) pg MCHC (31.0-37.0) g/dL RDW (11.5-15.5) % Plt Count (150-450) k/uL MPV Neutrophils % % Lymphocytes % % Monocytes % % Eosinophils % % Basophils % % Neutrophils # (1.3-7.7) k/uL Lymphocytes # (1.0-4.8) k/uL Monocytes # (0-1.0) k/uL Eosinophils # (0-0.7) k/uL Basophils # (0-0.2) k/uL Sodium (137-145) mmol/L Potassium (3.5-5.1) mmol/L Chloride (98-107) mmol/L Carbon Dioxide (22-30) mmol/L Anion Gap mmol/L BUN (7-17) mg/dL Creatinine (0.52-1.04) mg/dL Est GFR (CKD-EPI)AfAm (>60 ml/min/1.73 sqM) Est GFR (CKD-EPI)NonAf (>60 ml/min/1.73 sqM) Glucose (74-99) mg/dL Calcium (8.4-10.2) mg/dL TSH (0.465-4.680) mIU/L Urine Color Yellow Urine Appearance Cloudy H (Clear) Urine pH 6.0 (5.0-8.0) Ur Specific [place] 1.019 (1.001-1.035) Urine Protein Trace H (Negative) Urine Glucose (UA) Negative (Negative) Urine Ketones Negative (Negative) Urine Blood Large H (Negative) Urine Nitrite Negative (Negative) Urine Bilirubin Negative (Negative) Urine Urobilinogen <2.0 (<2.0) mg/dL Ur Leukocyte Esterase Small H (Negative) Urine RBC >182 H (0-5) /hpf Urine WBC 5 (0-5) /hpf Ur Squamous Epith Cells 3 (0-4) /hpf Urine Bacteria Rare H (None) /hpf Urine Mucus Rare H (None) /hpf Urine HCG, Qual Not Detected (Not Detectd) Coronavirus (PCR) Not Detected (Not Detectd) 06/18/20 06/18/20 Range/Units 15:01 15:01 WBC 7.9 (3.8-10.6) k/uL RBC 4.88 (3.80-5.40) m/uL Hgb 14.5 (11.4-16.0) gm/dL Hct 44.3 (34.0-46.0) % MCV 90.8 (80.0-100.0) fL MCH 29.7 (25.0-35.0) pg MCHC 32.7 (31.0-37.0) g/dL RDW 13.6 (11.5-15.5) % Plt Count 307 (150-450) k/uL MPV 6.8 Neutrophils % 58 % Lymphocytes % 31 % Monocytes % 7 % Eosinophils % 3 % Basophils % 1 % Neutrophils # 4.6 (1.3-7.7) k/uL Lymphocytes # 2.4 (1.0-4.8) k/uL Monocytes # 0.5 (0-1.0) k/uL Eosinophils # 0.2 (0-0.7) k/uL Basophils # 0.1 (0-0.2) k/uL Sodium 134 L (137-145) mmol/L Potassium 4.7 (3.5-5.1) mmol/L Chloride 103 (98-107) mmol/L Carbon Dioxide 24 (22-30) mmol/L Anion Gap 7 mmol/L BUN 15 (7-17) mg/dL Creatinine 0.49 L (0.52-1.04) mg/dL Est GFR (CKD-EPI)AfAm >90 (>60 ml/min/1.73 sqM) Est GFR (CKD-EPI)NonAf >90 (>60 ml/min/1.73 sqM) Glucose 98 (74-99) mg/dL Calcium 9.5 (8.4-10.2) mg/dL TSH 1.110 (0.465-4.680) mIU/L Urine Color Urine Appearance (Clear) Urine pH (5.0-8.0) Ur Specific [place] (1.001-1.035) Urine Protein (Negative) Urine Glucose (UA) (Negative) Urine Ketones (Negative) Urine Blood (Negative) Urine Nitrite (Negative) Urine Bilirubin (Negative) Urine Urobilinogen (<2.0) mg/dL Ur Leukocyte Esterase (Negative) Urine RBC (0-5) /hpf Urine WBC (0-5) /hpf Ur Squamous Epith Cells (0-4) /hpf Urine Bacteria (None) /hpf Urine Mucus (None) /hpf Urine HCG, Qual (Not Detectd) Coronavirus (PCR) (Not Detectd) Disposition Clinical Impression: Fungal infection of foot Disposition: HOME SELF-CARE Condition: Good Instructions (If sedation given, give patient instructions): Fever in Adults (ED), Athlete's Foot (ED) Additional Instructions: Follow-up with primary care doctor for outpatient evaluation of constitutional symptoms. Your prescribed topical antifungals. He will need to apply topical antifungal ointment to the affected areas daily for 4 months. Prescriptions: Ciclopirox Olamine [Ciclopirox 0.77% Topical Susp.] 1 applic TOPICAL DAILY 120 Days #1 tube Is patient prescribed a controlled substance at d/c from ED?: No Referrals: [facility] [Primary Care Provider] - 1-2 days Time of Disposition: 16:14
[2020-06-18 14:28] LABS: Appearance,Urine Cloudy (Clear); Bacteria,Urine Rare /hpf; Bilirubin,Urine Negative (Negative); Blood,Urine Large (Negative); Color,Urine Yellow; Glucose,Urine (UA) Negative (Negative); Ketones,Urine Negative (Negative); Leukocyte Esterase,Urine Small (Negative); Mucus,Urine Rare /hpf; Nitrite,Urine Negative (Negative); Protein,Urine Trace (Negative); RBC,Urine >182 /hpf (0-5); Specific Gravity,Urine 1.019 (1.001-1.035); Squamous Epithelial Cell,Urine 3 /hpf (0-4); Urobilinogen,Urine <2.0 mg/dL (<2.0); WBC,Urine 5 /hpf (0-5)
[2020-06-18 15:12] LABS: Basophils # (A) 0.1 k/uL (0-0.2); Basophils % (A) 1 %; Eosinophils # (A) 0.2 k/uL (0-0.7); Eosinophils % (A) 3 %; HCT 44.3 % (34.0-46.0); HGB 14.5 gm/dL (11.4-16.0); Lymphocytes # (A) 2.4 k/uL (1.0-4.8); Lymphocytes % (A) 31 %; MCH 29.7 pg (25.0-35.0); MCHC 32.7 g/dL (31.0-37.0); MCV 90.8 fL (80.0-100.0); Mean Platelet Volume 6.8; Monocytes # (A) 0.5 k/uL (0-1.0); Monocytes % (A) 7 %; Neutrophils # (A) 4.6 k/uL (1.3-7.7); Neutrophils % (A) 58 %; Platelet Count 307 k/uL (150-450); RBC 4.88 m/uL (3.80-5.40); RDW 13.6 % (11.5-15.5); WBC 7.9 k/uL (3.8-10.6)
--- NOTE | 2020-06-18 15:28 | XR ---
EXAMINATION TYPE: XR chest 1V portable DATE OF EXAM: 06/18/2020 COMPARISON: 04/19/2019 HISTORY: Weakness. Dizziness. TECHNIQUE: FINDINGS: Heart and mediastinum are normal. Lungs are clear. Diaphragm is normal. Bony thorax appears normal. IMPRESSION: Normal chest. No change.
[2020-06-18 15:33] LABS: African American GFR (CKD) >90 (>60 ml/min/1.73 sqM); Anion Gap 7 mmol/L; Blood Urea Nitrogen 15 mg/dL (7-17); Calcium 9.5 mg/dL (8.4-10.2); Carbon Dioxide 24 mmol/L (22-30); Chloride 103 mmol/L (98-107); Glucose 98 mg/dL (74-99); Non-African American GFR(CKD) >90 (>60 ml/min/1.73 sqM); Sodium 134 mmol/L (137-145)
[2020-06-18 15:38] VITALS: RESP 18
[2020-06-18 15:45] VITALS: TEMP 98.6
[2020-06-18 15:52] LABS: Potassium 4.7 mmol/L (3.5-5.1)
[2020-06-18 16:09] VITALS: BP 144/94; PULSE 80
== END 2020-06-18 16:38 | disposition home or self-care (01) ==
LOC: EC 13:46
DX: B35.3 Tinea pedis (principal); E11.9 Type 2 diabetes mellitus without complications; G47.30 Sleep apnea, unspecified; K21.9 Gastro-esophageal reflux disease without esophagitis; Z87.891 Personal history of nicotine dependence; Z99.81 Dependence on supplemental oxygen; F32.9 Major depressive disorder, single episode, unspecified
CPT/HCPCS: 36415; 71045; 80048; 81001; 81025; 84443; 85025; 87635

== ENCOUNTER → 2020-07-15 | Outpatient (CLI) | payer MEDICARE, OTHER | END | disposition home or self-care (01) | LOC: LABMAIN 07:36 | PROVIDERS: ATTEND Nurse Practitioner Family | DX: Z53.8 Procedure and treatment not carried out for other reasons (principal) ==

== ENCOUNTER 2020-08-28 21:14 | Emergency (ER) | payer MEDICARE, OTHER ==
[2020-08-28 21:36] VITALS: RESP 18; TEMP 98.1
[2020-08-28] MEDS ORDERED: KETOROLAC 15 MG/ML 1 ML VIAL IM STA (21:55)
[2020-08-28] MEDS ORDERED: PHENAZOPYRIDINE 200 MG TAB PO STA (21:56)
[2020-08-28 22:29] LABS: Appearance,Urine Cloudy (Clear); Bacteria,Urine Rare /hpf; Bilirubin,Urine Negative (Negative); Blood,Urine Trace (Negative); Color,Urine Yellow; Glucose,Urine (UA) Negative (Negative); Ketones,Urine Negative (Negative); Leukocyte Esterase,Urine Small (Negative); Nitrite,Urine Negative (Negative); PH, Urine 5.5 (5.0-8.0); Protein,Urine Negative (Negative); RBC,Urine 4 /hpf (0-5); Specific Gravity,Urine 1.026 (1.001-1.035); Squamous Epithelial Cell,Urine 2 /hpf (0-4); Urobilinogen,Urine <2.0 mg/dL (<2.0); WBC,Urine 4 /hpf (0-5)
[2020-08-28] MEDS ORDERED: CEPHALEXIN 500 MG CAP PO STA (22:38)
--- NOTE | 2020-08-28 22:43 | ED ---
Female Urogenital HPI - General Chief complaint: Urogenital Stated complaint: UTI Time Seen by Provider: 08/28/20 21:51 Source: patient Mode of arrival: wheelchair Limitations: no limitations - History of Present Illness Initial comments: Patient is a 39-year-old female presenting to the emergency department with concerns of a UTI. Patient states that while she was at work today started having some lower abdominal pressure, dysuria, frequency. She states she took a bath a few days ago and typically does get UTIs from these baths. Patient denies any severe abdominal pain, just some mild suprapubic pressure. She denies any nausea or vomiting, no fevers or chills. She has no complaints of anything else. - Related Data Home Medications Medication Instructions Recorded Confirmed Multivitamins, Thera [Multivitamin 1 tab PO DAILY 09/19/19 11/01/19 (formulary)] [place]-3 Fatty Acids/Fish Oil [Fish 1 each PO DAILY 09/19/19 11/01/19 Oil 1,000 mg Softgel] cloNIDine HCL [Catapres] 0.1 mg PO BID 09/19/19 11/01/19 Metoprolol Tartrate 25 mg PO DAILY 11/01/19 11/01/19 Previous Rx's Medication Instructions Recorded Amoxic-Pot Clav 875-125Mg 1 tab PO Q12HR 7 Days #14 tab 11/01/19 [Augmentin 875-125] Cyclobenzaprine [Flexeril] 10 mg PO TID #10 tab 02/13/20 Ibuprofen [Motrin] 600 mg PO Q8HR PRN #20 tab 02/13/20 Ciclopirox Olamine [Ciclopirox 1 applic TOPICAL DAILY 120 Days #1 06/18/20 0.77% Topical Susp.] tube Cephalexin [Keflex] 500 mg PO BID 5 Days #10 cap 08/28/20 Allergies Allergy/AdvReac Type Severity Reaction Status Date / Time No Known Allergies Allergy Verified 08/28/20 21:34 Review of Systems ROS Statement: Those systems with pertinent positive or pertinent negative responses have been documented in the HPI. ROS Other: All systems not noted in ROS Statement are negative. Past Medical History Past Medical History: GERD/Reflux, Sleep Apnea/CPAP/BIPAP Additional Past Medical History / Comment(s): Pt. has a hx. of DM but lost wt. and started exercising approx. one year ago and no longer needs oral diabetic meds. or diabetic diet; Pt. takes omeprazole otc, when needed for acid reflux; Pt. stated not using cpap machine. Pt. states she has chronic back pain but has no diagnosis and no prev. injury; Pt. has endometriosis and interstitial cystitis. History of Any Multi-Drug Resistant Organisms: None Reported Past Surgical History: Tubal Ligation Past Anesthesia/Blood Transfusion Reactions: No Reported Reaction Past Psychological History: Anxiety, Bipolar, Depression, PTSD Smoking Status: Former smoker Past Alcohol Use History: None Reported Past Drug Use History: None Reported - Past Family History Father Family Medical History: Cancer, Congestive Heart Failure (CHF), Diabetes Mellitus, Dialysis, Hypertension, Renal Disease General Exam - General Exam Comments Initial Comments: GENERAL: Patient is well-developed and well-nourished. Patient is nontoxic and in no acute distress. HEAD: Atraumatic, normocephalic. EYES: Pupils equal round and reactive to light, extraocular movements intact, sclera anicteric, conjunctiva are normal. Eyelids were unremarkable. ENT: TMs normal, nares patent, oropharynx clear without exudates. Moist mucous membranes. NECK: Normal range of motion, supple without lymphadenopathy or JVD. LUNGS: Unlabored respirations. Breath sounds clear to auscultation bilaterally and equal. No wheezes rales or rhonchi. HEART: Regular rate and rhythm without murmurs, rubs or gallops. ABDOMEN: Soft, mild suprapubic discomfort on palpation, no other areas of abdominal pain, normoactive bowel sounds. No guarding, no rebound. No masses appreciated. : Deferred MUSCULOSKELETAL: Normal extremities with adequate strength and normal range of motion, no pitting or edema. No clubbing or cyanosis. NEUROLOGICAL: Patient is alert and oriented x 3. Normal speech, normal gait. PSYCH: Normal mood, normal affect. SKIN: Warm, Dry, normal turgor, no rashes or lesions noted. Limitations: no limitations Course Vital Signs 08/28/20 21:34 Temperature 98.1 F Pulse Rate 96 Respiratory 18 Rate Blood Pressure 129/83 O2 Sat by Pulse 95 Oximetry Medical Decision Making - Medical Decision Making Patient is a 39-year-old female here with concerns of a UTI, suprapubic discomfort on palpation, frequency, dysuria and urgency. Vitals are stable, afebrile. No fevers, no back pain. Urine shows trace amount of blood, leukocyte esterase, WBCs, rare bacteria. Patient was given a shot of Toradol today, Pyridium, I will start her on Keflex as well. Patient is stable for discharge, she'll follow-up with her PCP. She is in agreement with this plan of care. - Lab Data Lab Results 08/28/20 Range/Units 22:17 Urine Color Yellow Urine Appearance Cloudy H (Clear) Urine pH 5.5 (5.0-8.0) Ur Specific [place] 1.026 (1.001-1.035) Urine Protein Negative (Negative) Urine Glucose (UA) Negative (Negative) Urine Ketones Negative (Negative) Urine Blood Trace H (Negative) Urine Nitrite Negative (Negative) Urine Bilirubin Negative (Negative) Urine Urobilinogen <2.0 (<2.0) mg/dL Ur Leukocyte Esterase Small H (Negative) Urine RBC 4 (0-5) /hpf Urine WBC 4 (0-5) /hpf Ur Squamous Epith Cells 2 (0-4) /hpf Urine Bacteria Rare H (None) /hpf Disposition Clinical Impression: Urinary tract infection Disposition: HOME SELF-CARE Condition: Stable Instructions (If sedation given, give patient instructions): Urinary Tract Infection in Women (ED) Additional Instructions: Please return to the Emergency Department if symptoms worsen or any other concerns. Take antibiotics as prescribed. May take ibuprofen for any discomfort. Follow-up with your PCP. Prescriptions: Cephalexin [Keflex] 500 mg PO BID 5 Days #10 cap Is patient prescribed a controlled substance at d/c from ED?: No Referrals: Nadiya Phillips MD [Primary Care Provider] - 1-2 days Time of Disposition: 22:43
[2020-08-28 23:01] VITALS: BP 152/85; PULSE 98
== END 2020-08-28 23:01 | disposition home or self-care (01) ==
LOC: EC 21:14
DX: N39.0 Urinary tract infection, site not specified (principal); G47.33 Obstructive sleep apnea (adult) (pediatric); K21.9 Gastro-esophageal reflux disease without esophagitis; F32.9 Major depressive disorder, single episode, unspecified; Z99.89 Dependence on other enabling machines and devices; Z98.51 Tubal ligation status; Z87.891 Personal history of nicotine dependence
CPT/HCPCS: 81001; 99283; 96372; J1885

== ENCOUNTER → 2021-01-05 | Outpatient (CLI) | payer OTHER ==
--- NOTE | 2021-01-05 14:03 | XR ---
EXAMINATION TYPE: XR foot complete RT DATE OF EXAM: 01/05/2021 COMPARISON: 05/15/2020 HISTORY: Foot run over by wheelchair TECHNIQUE: 3 view right foot FINDINGS: No acute fracture or dislocation is evident. Joint spaces are preserved. Plantar calcaneal heel spur is present. Follow up exams can be performed 7-10 days from acute trauma for continued pain. IMPRESSION: 1. No acute osseous abnormality right foot 2. Plantar calcaneal heel spur
== END | disposition home or self-care (01) ==
LOC: RADXRMAIN 13:27
PROVIDERS: ATTEND Emergency Medicine
DX: S99.921A Unspecified injury of right foot, initial encounter (principal); M77.31 Calcaneal spur, right foot

== ENCOUNTER 2022-02-20 06:21 | Emergency (ER) | payer OTHER ==
[2022-02-20 06:26] VITALS: TEMP 98
[2022-02-20] MEDS ORDERED: SODIUM CHLORIDE 0.9% 1,000 ML IV STA (06:37)
[2022-02-20] MEDS ORDERED: HYDROmorphone 0.5 MG/0.5 ML SYRINGE IVP STA (06:37)
--- NOTE | 2022-02-20 06:43 | ED ---
Abdominal Pain HPI - General Chief Complaint: Abdominal Pain Stated Complaint: Abd Pain Time Seen by Provider: 02/20/22 06:29 Source: patient, RN notes reviewed, old records reviewed Mode of arrival: ambulatory Limitations: no limitations - History of Present Illness Initial Comments: Nontoxic-appearing 41-year-old female presents to the emergency room with left lower quadrant pain since last night. Patient states she believes she is having a diverticulitis flare after eating rye bread with seeds last night. Has also had some diarrhea. Denies any fevers or nausea vomiting. Patient does have a history of diverticulitis, GERD and bipolar depression. MD Complaint: abdominal pain -: days(s) (1) Location: LUQ, LLQ Radiation: back Severity scale (1-10): 8 Consistency: constant Improves With: nothing Worsens With: movement (Palpation) Context: other (History of diverticulitis ate popcorn and rye bread with seeds) Associated Symptoms: diarrhea - Related Data Home Medications Medication Instructions Recorded Confirmed cloNIDine HCL [Catapres] 0.1 mg PO BID PRN 09/19/19 08/28/20 Atorvastatin [Lipitor] 10 mg PO DAILY 08/28/20 08/28/20 Meloxicam [Mobic] 15 mg PO DAILY 08/28/20 08/28/20 lisinopriL [Zestril] 5 mg PO DAILY 08/28/20 08/28/20 ziprasidone HCL [Geodon] 80 mg PO HS 08/28/20 08/28/20 Previous Rx's Medication Instructions Recorded Cephalexin [Keflex] 500 mg PO BID 5 Days #10 cap 08/28/20 Amoxicillin/Potassium Clav 1 tab PO Q12H 5 Days #10 tab 02/20/22 [Augmentin Xr 1,000-62.5 Tab] Allergies Allergy/AdvReac Type Severity Reaction Status Date / Time No Known Allergies Allergy Verified 02/20/22 06:26 Review of Systems ROS Statement: Those systems with pertinent positive or pertinent negative responses have been documented in the HPI. ROS Other: All systems not noted in ROS Statement are negative. Past Medical History Past Medical History: GERD/Reflux, Sleep Apnea/CPAP/BIPAP Additional Past Medical History / Comment(s): Pt. has a hx. of DM but lost wt. and started exercising approx. one year ago and no longer needs oral diabetic meds. or diabetic diet; Pt. takes omeprazole otc, when needed for acid reflux; Pt. stated not using cpap machine. Pt. states she has chronic back pain but has no diagnosis and no prev. injury; Pt. has endometriosis and interstitial cystitis., diverticulits History of Any Multi-Drug Resistant Organisms: None Reported Past Surgical History: Tubal Ligation Past Anesthesia/Blood Transfusion Reactions: No Reported Reaction Past Psychological History: Anxiety, Bipolar, Depression, PTSD Smoking Status: Former smoker Past Alcohol Use History: None Reported Past Drug Use History: None Reported - Past Family History Father Family Medical History: Cancer, Congestive Heart Failure (CHF), Diabetes Mellitus, Dialysis, Hypertension, Renal Disease General Exam Limitations: no limitations General appearance: alert, in no apparent distress Head exam: Present: atraumatic Eye exam: Absent: scleral icterus, conjunctival injection, periorbital swelling Respiratory exam: Present: normal lung sounds bilaterally. Absent: respiratory distress, accessory muscle use Cardiovascular Exam: Present: bradycardia GI/Abdominal exam: Present: soft, tenderness (Left lower quadrant and left upper quadrant). Absent: distended, guarding, rigid Extremities exam: Present: normal capillary refill. Absent: pedal edema Back exam: Absent: tenderness, CVA tenderness (R), CVA tenderness (L), rash noted Neurological exam: Present: alert, oriented X3 Psychiatric exam: Present: normal affect, normal mood Skin exam: Present: warm, dry, normal color. Absent: cyanosis, diaphoretic, petechiae, pallor Course Vital Signs 02/20/22 02/20/22 06:22 09:20 Temperature 98 F Pulse Rate 54 L 62 Respiratory 18 15 Rate Blood Pressure 100/58 102/60 O2 Sat by Pulse 99 98 Oximetry Medical Decision Making - Medical Decision Making Patient presents with left lower quadrant pain since last night after eating rye bread with seeds. Pain similar to diverticulitis flares in the past. CT consistent with moderate uncomplicated acute diverticulitis proximal sigmoid colon involving the anterior left upper to mid pelvis. No free air. No drainable abscess. Labs show mild leukocytosis. Electrolytes unremarkable. Lactic acid negative. Lipase slightly elevated likely related to diverticulitis. Patient was given IV fluids and Dilaudid for pain. Resting comfortably on the cart. She was prescribed Augmentin for 5 days and directed to follow up with her [facility] doctor. Incidental finding on CT revealing a right ovarian cyst, patient was notified of results and directed to follow up with her primary care doctor. Case discussed with Dr. Tyson. - Lab Data Result diagrams: 02/20/22 06:44 02/20/22 06:44 Lab Results 02/20/22 02/20/22 02/20/22 Range/Units 06:44 06:44 06:44 WBC 12.9 H (3.8-10.6) k/uL RBC 4.29 (3.80-5.40) m/uL Hgb 13.1 (11.4-16.0) gm/dL Hct 37.6 (34.0-46.0) % MCV 87.6 (80.0-100.0) fL MCH 30.4 (25.0-35.0) pg MCHC 34.7 (31.0-37.0) g/dL RDW 13.9 (11.5-15.5) % Plt Count 284 (150-450) k/uL MPV 7.3 Neutrophils % 63 % Lymphocytes % 27 % Monocytes % 5 % Eosinophils % 3 % Basophils % 1 % Neutrophils # 8.1 H (1.3-7.7) k/uL Lymphocytes # 3.5 (1.0-4.8) k/uL Monocytes # 0.7 (0-1.0) k/uL Eosinophils # 0.3 (0-0.7) k/uL Basophils # 0.1 (0-0.2) k/uL Sodium 136 L (137-145) mmol/L Potassium 3.9 (3.5-5.1) mmol/L Chloride 102 (98-107) mmol/L Carbon Dioxide 26 (22-30) mmol/L Anion Gap 8 mmol/L BUN 20 H (7-17) mg/dL Creatinine 0.68 (0.52-1.04) mg/dL Est GFR (CKD-EPI)AfAm >90 (>60 ml/min/1.73 sqM) Est GFR (CKD-EPI)NonAf >90 (>60 ml/min/1.73 sqM) Glucose 85 (74-99) mg/dL Plasma Lactic Acid Zia <0.5 L (0.7-2.0) mmol/L Calcium 8.8 (8.4-10.2) mg/dL Total Bilirubin 0.4 (0.2-1.3) mg/dL AST 24 (14-36) U/L ALT 28 (4-34) U/L Alkaline Phosphatase 70 (38-126) U/L Total Protein 6.7 (6.3-8.2) g/dL Albumin 4.0 (3.5-5.0) g/dL Amylase 50 (30-110) U/L Lipase 371 H (23-300) U/L Disposition Clinical Impression: Diverticulitis, Right ovarian cyst Disposition: HOME SELF-CARE Condition: Good Instructions (If sedation given, give patient instructions): Ovarian Cyst (ED), Diverticulitis (ED) Additional Instructions: Clear liquid diet for next 24 hours then eat a low fiber diet and increase your fluid intake to at least 64 ounces of water a day for the next 2 days. After two days you can resume your normal diet however avoid nuts, seeds and popcorn. Take antibiotics as prescribed. Follow-up with your primary care doctor within the next week. Return to the emergency room with any new or concerning symptoms including increased pain or fevers. On CT scan there was an incidental finding of a right ovarian cyst. Please discuss this with the primary care doctor or your [facility] for continuation of care. Prescriptions: Amoxicillin/Potassium Clav [Augmentin Xr 1,000-62.5 Tab] 1 tab PO Q12H 5 Days #10 tab Is patient prescribed a controlled substance at d/c from ED?: No Referrals: Nadiya Phillips MD [Primary Care Provider] - 1-2 days Time of Disposition: 08:55
[2022-02-20 06:53] LABS: Basophils # (A) 0.1 k/uL (0-0.2); Basophils % (A) 1 %; Eosinophils # (A) 0.3 k/uL (0-0.7); Eosinophils % (A) 3 %; HCT 37.6 % (34.0-46.0); HGB 13.1 gm/dL (11.4-16.0); Lymphocytes # (A) 3.5 k/uL (1.0-4.8); Lymphocytes % (A) 27 %; MCH 30.4 pg (25.0-35.0); MCHC 34.7 g/dL (31.0-37.0); MCV 87.6 fL (80.0-100.0); Mean Platelet Volume 7.3; Monocytes # (A) 0.7 k/uL (0-1.0); Monocytes % (A) 5 %; Neutrophils # (A) 8.1 k/uL (1.3-7.7); Neutrophils % (A) 63 %; Platelet Count 284 k/uL (150-450); RBC 4.29 m/uL (3.80-5.40); RDW 13.9 % (11.5-15.5); WBC 12.9 k/uL (3.8-10.6)
[2022-02-20 07:07] LABS: ALT 28 U/L (4-34); AST 24 U/L (14-36); African American GFR (CKD) >90 (>60 ml/min/1.73 sqM); Alkaline Phosphatase 70 U/L (38-126); Amylase 50 U/L (30-110); Anion Gap 8 mmol/L; Blood Urea Nitrogen 20 mg/dL (7-17); Calcium 8.8 mg/dL (8.4-10.2); Carbon Dioxide 26 mmol/L (22-30); Chloride 102 mmol/L (98-107); Glucose 85 mg/dL (74-99); Lipase 371 U/L (23-300); Non-African American GFR(CKD) >90 (>60 ml/min/1.73 sqM); Potassium 3.9 mmol/L (3.5-5.1); Sodium 136 mmol/L (137-145); Total Bilirubin 0.4 mg/dL (0.2-1.3); Total Protein 6.7 g/dL (6.3-8.2)
--- NOTE | 2022-02-20 08:22 | CT ---
EXAMINATION TYPE: CT abdomen pelvis w con DATE OF EXAM: 02/20/2022 HISTORY: History of diverticulitis with abdominal pain. CT DLP: 2097.9mGycm Automated Exposure Control for Dose Reduction was Utilized. CONTRAST: CT scan of the abdomen and pelvis is performed without oral and with IV Contrast, patient injected wi th 100 mL of Isovue M300. COMPARISON: Prior CTs November 01, 2019 and September 19, 2019 FINDINGS: LUNG BASES: Mild posterior right greater than left bibasilar linear scarring and/or atelectasis. LIVER/GB: Visualized liver is heterogeneously hypodense consistent with diffuse fatty infiltration. PANCREAS: No significant abnormality is seen. SPLEEN: Small splenule in splenic hilum on axial image 29 redemonstrated. ADRENALS: No significant abnormality is seen. KIDNEYS: Symmetric corticomedullary uptake and excretion without hydronephrosis seen bilaterally. BOWEL: Hyperdense material appears to look like oral contrast only in the colon, perhaps patient had recent study at outside institution. Correlate clinically. Ingested food products and/or medication c an sometimes cause this appearance but usually not as diffuse. There is no suspicious small or large bowel dilatation. Normal appearing appendix and base of cecum is noted. A few diverticula in the dist al two thirds of the left colon and throughout the proximal one half of the sigmoid colon are present . There is moderate ill-defined fluid and fat stranding in the anterior left upper to mid pelvis at s ite of diverticular disease in the proximal sigmoid colon. Findings consistent with acute diverticuli tis at this level. No free air. No well-formed fluid collection or drainable abscess. UTERUS/ADNEXA: Anteverted uterus redemonstrated. There is 3.5 x 3.2 cm low dense lesion in right ovar y. This could reflect thin-walled ovarian cyst. This could be better evaluated with pelvic ultrasound if desired. LYMPH NODES: No greater than 1cm abdominal or pelvic lymph nodes are appreciated. OSSEOUS STRUCTURES: Moderate disc space narrowing with vacuum disc phenomenon at L5-S1 level. OTHER: No significant additional abnormality is seen. IMPRESSION: CT findings consistent with a fairly moderate uncomplicated acute diverticulitis proximal sigmoid colon level involving the anterior left upper to mid pelvis as detailed above.
[2022-02-20 09:22] VITALS: BP 102/60; PULSE 62; RESP 15
== END 2022-02-20 09:21 | disposition home or self-care (01) ==
LOC: EC 06:21
DX: K57.92 Diverticulitis of intestine, part unspecified, without perforation or abscess without bleeding (principal); N83.201 Unspecified ovarian cyst, right side; K21.9 Gastro-esophageal reflux disease without esophagitis; F41.9 Anxiety disorder, unspecified; F31.9 Bipolar disorder, unspecified; Z87.891 Personal history of nicotine dependence; Z79.899 Other long term (current) drug therapy
CPT/HCPCS: 36415; 80053; 82150; 83605; 83690; 85025; 74177; 99284; 96374; 96361 ×2; J1170; Q9967

== ENCOUNTER 2022-06-25 09:26 | Day surgery (SDC) | payer MEDICARE ==
[~2022-06-25 09:26] MED LIST: LACTATED RINGERS 1,000 ML IV SCH
[2022-06-25 09:55] VITALS: TEMP 98
[2022-06-25 10:10] LABS: Glucose,Whole Blood 89 mg/dL (70-110)
[2022-06-25] MEDS ORDERED: PROPOFOL 10 MG/ML 20 ML VIAL IV ONE (10:28)
--- NOTE | 2022-06-25 10:52 | P.PCN ---
Date of Procedure: 06/25/22 Procedure(s) Performed: BRIEF HISTORY: Patient is a 1-year-old pleasant white female scheduled for an elective colonoscopy as a part of evaluation of recurrent sigmoid diverticulitis for the last 2 years duration. She had 4 episodes of foreign treated with antibiotics.. Last episode was 3 months ago. PROCEDURE PERFORMED: Colonoscopy. PREOPERATIVE DIAGNOSIS: Recurrent sigmoid diverticulitis. IV sedation per Anesthesia. PROCEDURE: After informed consent was obtained, the patient, was brought into the endoscopy unit. IV sedation was administered by Anesthesia under continuous monitoring. Digital rectal examination was normal. Initially the Olympus CF-160 flexible video colonoscope was then inserted in the rectum, gradually advanced into the cecum without any difficulty. Careful examination was performed as the scope was gradually being withdrawn. Ileocecal valve and the appendiceal orifice were visualized and appeared normal. Prep was excellent. Mucosa of the cecum, ascending colon, transverse colon, descending colon, sigmoid colon, and rectum appeared normal. Scattered left-sided diverticulosis Retroflexion was performed in the rectum and no lesions were seen. The patient tolerated the procedure well. IMPRESSION: Normal-appearing colon from rectum to cecum with no evidence of colorectal neoplasia. Scattered left-sided diverticulosis. RECOMMENDATIONS: Findings of this examination were discussed with the patient as well as a family. She was advised to be a high-fiber diet. We'll repeat screening colonoscopy in 10 years.
[2022-06-25 11:00] VITALS: RESP 16
[2022-06-25 11:10] VITALS: BP 108/68; PULSE 65
== END 2022-06-25 11:46 | disposition home or self-care (01) ==
LOC: ORWHC2ENDO 09:26
PROVIDERS: ATTEND Internal Medicine Gastroenterology
DX: K57.32 Diverticulitis of large intestine without perforation or abscess without bleeding (principal); Z87.19 Personal history of other diseases of the digestive system
CPT/HCPCS: 81025; 45378; J2704

== ENCOUNTER 2022-07-18 06:01 | Emergency (ER) | payer MEDICARE, OTHER ==
[2022-07-18] MEDS ORDERED: HYDROmorphone 0.5 MG/0.5 ML SYRINGE IM STA (06:25)
--- NOTE | 2022-07-18 06:29 | ED ---
Upper Extremity HPI - General Chief Complaint: Extremity Injury, Upper Stated Complaint: IHS - Right Shoulder Injury Time Seen by Provider: 07/18/22 06:10 Source: patient, RN notes reviewed Mode of arrival: ambulatory Limitations: no limitations - History of Present Illness Initial Comments: This is a 41-year-old female who presents to the emergency department for a right shoulder injury. 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 The patient was fairly large and when she went to roll her over, she felt a pop in her right shoulder. She has since been experiencing pain going down the arm and into the fingertips. She is holding her arm bent at 90, which she states is the most comfortable position for her. Denies any fevers, chills, sore throat, cough, dyspnea, chest pain, palpitations, abdominal pain, nausea, vomiting, diarrhea, back pain, or headaches. MD Complaint: Injury to:: right, shoulder Associated Symptoms: heard/felt popping sensat - Related Data Home Medications Medication Instructions Recorded Confirmed cloNIDine HCL [Catapres] 0.1 mg PO BID PRN 09/19/19 06/25/22 Atorvastatin [Lipitor] 10 mg PO DAILY 08/28/20 06/25/22 Meloxicam [Mobic] 15 mg PO DAILY 08/28/20 06/25/22 lisinopriL [Zestril] 5 mg PO DAILY 08/28/20 06/25/22 ziprasidone HCL [Geodon] 80 mg PO HS 08/28/20 06/25/22 Previous Rx's Medication Instructions Recorded HYDROcodone/APAP 5-325MG [[place] 1 tab PO Q6HR PRN 3 Days #12 tab 07/18/22 5-325] Ibuprofen [Motrin] 800 mg PO Q8H PRN #15 tab 07/18/22 Allergies Allergy/AdvReac Type Severity Reaction Status Date / Time No Known Allergies Allergy Verified 06/25/22 09:39 Review of Systems ROS Statement: Those systems with pertinent positive or pertinent negative responses have been documented in the HPI. ROS Other: All systems not noted in ROS Statement are negative. Past Medical History Past Medical History: GERD/Reflux, Sleep Apnea/CPAP/BIPAP Additional Past Medical History / Comment(s): Pt. has a hx. of DM but lost wt. and started exercising approx. one year ago and no longer needs oral diabetic meds. or diabetic diet; Pt. takes omeprazole otc, when needed for acid reflux; Pt. stated not using cpap machine. Pt. states she has chronic back pain but has no diagnosis and no prev. injury; Pt. has endometriosis and interstitial cystitis., diverticulits History of Any Multi-Drug Resistant Organisms: None Reported Past Surgical History: Tubal Ligation Additional Past Surgical History / Comment(s): d & c Past Anesthesia/Blood Transfusion Reactions: No Reported Reaction Past Psychological History: Anxiety, Bipolar, Depression, PTSD Smoking Status: Former smoker - Past Family History Father Family Medical History: Cancer, Congestive Heart Failure (CHF), Diabetes Mellitus, Dialysis, Hypertension, Renal Disease General Exam Limitations: no limitations General appearance: alert, in distress Head exam: Present: atraumatic, normocephalic, normal inspection Respiratory exam: Present: normal lung sounds bilaterally. Absent: respiratory distress, wheezes, rales, rhonchi, stridor Cardiovascular Exam: Present: regular rate, normal rhythm, normal heart sounds. Absent: systolic murmur, diastolic murmur, rubs, gallop, clicks Extremities exam: Present: other (Patient holding her arm at 90. No visible or palpable deformities. Tenderness to palpation over the right humeral head. She is able to touch the left shoulder with her right hand. 2+ radial pulses and capillary refill <1 second.) Neurological exam: Present: alert, oriented X3, CN II-XII intact Psychiatric exam: Present: normal affect, normal mood Skin exam: Present: warm, dry, intact, normal color. Absent: rash Course Vital Signs 07/18/22 07/18/22 06:10 08:13 Temperature 97.5 F L 97.6 F Pulse Rate 98 66 Respiratory 16 19 Rate Blood Pressure 116/84 137/80 O2 Sat by Pulse 97 97 Oximetry Medical Decision Making - Medical Decision Making This is a 41-year-old female who presents to the emergency department for a right shoulder injury. Was pt. sent in by a medical professional or institution? @ -[employer]/S Did you speak to anyone other than the patient for history? @ -No Did you review nursing and triage notes? @ -Yes, and I agree, it is accurate with regards to the patient's symptoms. Were old charts reviewed? @ -No Differential Diagnosis? @ -Differential Shoulder Injury: Fracture, dislocation, contusion, rotator cuff injury, AC joint separation, sprain, this is not meant to be an all-inclusive list. X-rays interpreted by me (1pt min.)? @ -X-ray of the right shoulder obtained. My interpretation identifies no acute fractures or dislocations. What testing was considered but not performed? (CT, X-rays, U/S, labs)? Why? @ -None What meds were considered but not given? Why? @ -None Did you discuss the management of the patient with other professionals? @ -No Did you reconcile home meds? @ -No Was smoking cessation discussed for >3mins.? @ -No Was critical care preformed (if so, how long)? @ -No Were there social determinants of health that impacted care today? How? (Homelessness, low income, unemployed, alcoholism, drug addiction, transportation, low edu. Level, literacy, decrease access to med. care, [facility] [facility], rehab)? @ -No Was there de-escalation of care discussed even if they declined? (Discuss DNR or withdrawal of care, Hospice)? @ -No What co-morbidities impacted this encounter? (DM, HTN, Smoking, COPD, CAD, Cancer, CVA, Hep., AIDS, mental health diagnosis, sleep apnea, morbid obesity)? @ -None Was patient admitted / discharged? @ -Discharged. X-ray obtained revealing no acute findings. Patient's pain was controlled in the emergency department. Advised that while the imaging here is normal, it does not exclude the possibility of a rotator cuff injury or problem with the ligaments or tendons. Prescription for ibuprofen and [place] provided with dosing instructions reviewed. Advised she take Tylenol with the ibuprofen and take the [place] sparingly when her pain is the most severe. She is also instructed to avoid driving or operating machinery when taking this. Advised to apply ice for 15-20 minutes every 2-3 hours. Information for orthopedic follow-up provided. She is instructed to contact them for follow-up appointment if symptoms do not improve. Undiagnosed new problem with uncertain prognosis? @ -None Drug Therapy requiring intensive monitoring for toxicity (Heparin, Nitro, Insulin, Cardizem)? @ -None Were any procedures done? @ -None Diagnosis/symptom? @ -Right shoulder injury Acute, or Chronic, or Acute on Chronic? @ -Acute Uncomplicated (without systemic symptoms) or Complicated (systemic symptoms)? @ -Uncomplicated Side effects of treatment? @ -None Exacerbation, Progression, or Severe Exacerbation] @ -Not applicable Poses a threat to life or bodily function? @ -The pain is making it difficult to use her right arm Return precautions reviewed in depth, the patient is instructed to return to the emergency department with any new, worsening, or concerning symptoms. Patient verbalized understanding. This case was discussed in detail with the attending ED physician, Dr. Conte. Presentation, findings, and treatment plan discussed in detail as well. - Radiology Data Radiology results: report reviewed, image reviewed Disposition Clinical Impression: Sprain of right shoulder Disposition: HOME SELF-CARE Instructions (If sedation given, give patient instructions): Shoulder Sprain (ED) Additional Instructions: Return to the emergency department with any new, worsening, or concerning symptoms. Alternate with ibuprofen and Tylenol as needed for pain relief. Take the [place] sparingly when your pain is the most severe and avoid driving or operating machinery when taking this. Apply ice for 15-20 minutes every 2-3 hours and contact orthopedics as listed below for a follow-up appointment and reevaluation of ongoing symptoms. Follow up with your primary care provider in 1-2 days. Prescriptions: Ibuprofen [Motrin] 800 mg PO Q8H PRN #15 tab PRN Reason: Pain HYDROcodone/APAP 5-325MG [[place] 5-325] 1 tab PO Q6HR PRN 3 Days #12 tab PRN Reason: Pain Is patient prescribed a controlled substance at d/c from ED?: Yes When asked, does pt state using other controlled substances?: No If prescribed controlled substance>3 days was MAPS reviewed?: Prescribed <3 Days Referrals: None,Stated [REFERRING] - 1-2 days Rose Griffith, [Doctor of Osteopathic Medicine] - 1-2 days
--- NOTE | 2022-07-18 07:21 | XR ---
EXAMINATION TYPE: XR shoulder complete RT DATE OF EXAM: 07/18/2022 COMPARISON: NONE HISTORY: Pain TECHNIQUE: Shoulder examined in 3 projections. FINDINGS: The humeral head articulates with the glenoid. There is minimal spurring from the inferior humeral he ad and Glenoid. The acromio-clavicular junction is normal. No acute fractures or dislocations are evident. A follow up study can be performed 7-10 days from acute trauma for continued pain. MRI can be perfor med if soft tissue evaluation would be of benefit. IMPRESSION: 1. Mild degenerative joint changes glenohumeral junction
[2022-07-18] MEDS ORDERED: HYDROmorphone 1 MG/ML 1 ML SYRINGE IVP STA (07:45)
[2022-07-18] MEDS ORDERED: HYDROmorphone 1 MG/ML 1 ML SYRINGE IM STA (07:54)
[2022-07-18 08:14] VITALS: BP 137/80; PULSE 66; RESP 19; TEMP 97.6
== END 2022-07-18 08:14 | disposition home or self-care (01) ==
LOC: EC 06:01
DX: S43.401A Unspecified sprain of right shoulder joint, initial encounter (principal); G47.30 Sleep apnea, unspecified; F41.9 Anxiety disorder, unspecified; F31.9 Bipolar disorder, unspecified; Z87.891 Personal history of nicotine dependence; X58.XXXA Exposure to other specified factors, initial encounter
CPT/HCPCS: 73030; 99283; 96372 ×2; J1170 ×2

== ENCOUNTER 2022-10-11 06:21 | Emergency (ER) | payer SELFPAY ==
[2022-10-11 06:35] VITALS: RESP 18; TEMP 98.5
[2022-10-11] MEDS ORDERED: FLUCONAZOLE 150 MG TAB PO STA (07:01)
--- NOTE | 2022-10-11 07:08 | ED ---
Female Urogenital HPI - General Chief complaint: Skin/Abscess/Foreign Body Stated complaint: Skin Irritation Time Seen by Provider: 10/11/22 06:44 Source: patient, RN notes reviewed Mode of arrival: ambulatory Limitations: no limitations - History of Present Illness Initial comments: This is a 42-year-old female who presents to the emergency department for burning and pain in the genitalia. States that a couple of days ago she was drying herself off after taking a shower. States that after drying herself off, she noticed that the towel had a somewhat moldy smell. The next day, she started to develop burning and sensitivity to this region. Last night she had extreme burning and sensitivity in the buttocks and vaginal region that has since persisted into this morning. Pain is not worse when she tries to urinate. She used some of her friends Monistat cream, which was mildly beneficial. Denies any drainage or odor to this area. Also denies any history of similar symptoms in the past. Denies any fevers, chills, sore throat, cough, dyspnea, chest pain, palpitations, abdominal pain, nausea, vomiting, diarrhea, back pain, or he adaches. MD Complaint: pelvic pain - Related Data Home Medications Medication Instructions Recorded Confirmed cloNIDine HCL [Catapres] 0.1 mg PO BID PRN 09/19/19 06/25/22 Atorvastatin [Lipitor] 10 mg PO DAILY 08/28/20 06/25/22 Meloxicam [Mobic] 15 mg PO DAILY 08/28/20 06/25/22 lisinopriL [Zestril] 5 mg PO DAILY 08/28/20 06/25/22 ziprasidone HCL [Geodon] 80 mg PO HS 08/28/20 06/25/22 Previous Rx's Medication Instructions Recorded HYDROcodone/APAP 5-325MG [[place] 1 tab PO Q6HR PRN 3 Days #12 tab 07/18/22 5-325] Ibuprofen [Motrin] 800 mg PO Q8H PRN #15 tab 07/18/22 Fluconazole 150 mg PO ONCE 1 Days #1 tab 10/11/22 Allergies Allergy/AdvReac Type Severity Reaction Status Date / Time No Known Allergies Allergy Verified 10/11/22 06:35 Review of Systems ROS Statement: Those systems with pertinent positive or pertinent negative responses have been documented in the HPI. ROS Other: All systems not noted in ROS Statement are negative. Past Medical History Past Medical History: GERD/Reflux, Sleep Apnea/CPAP/BIPAP Additional Past Medical History / Comment(s): Pt. has a hx. of DM but lost wt. and started exercising approx. one year ago and no longer needs oral diabetic meds. or diabetic diet; Pt. takes omeprazole otc, when needed for acid reflux; Pt. stated not using cpap machine. Pt. states she has chronic back pain but has no diagnosis and no prev. injury; Pt. has endometriosis and interstitial cystitis., diverticulits History of Any Multi-Drug Resistant Organisms: None Reported Past Surgical History: Tubal Ligation Additional Past Surgical History / Comment(s): d & c Past Anesthesia/Blood Transfusion Reactions: No Reported Reaction Past Psychological History: Anxiety, Bipolar, Depression, PTSD Smoking Status: Former smoker - Past Family History Father Family Medical History: Cancer, Congestive Heart Failure (CHF), Diabetes Mellitus, Dialysis, Hypertension, Renal Disease General Exam Limitations: no limitations General appearance: alert, in no apparent distress Head exam: Present: atraumatic, normocephalic, normal inspection Respiratory exam: Present: normal lung sounds bilaterally. Absent: respiratory distress, wheezes, rales, rhonchi, stridor Cardiovascular Exam: Present: regular rate, normal rhythm, normal heart sounds. Absent: systolic murmur, diastolic murmur, rubs, gallop, clicks External exam: Present: other (Minor erythema on the vulva with a small area of white discharge. There are some scattered ingrown hairs around the buttocks, however there are no areas of erythema or swelling around the anus or in the gluteal folds. One external hemorrhoid is noted.) Neurological exam: Present: alert, oriented X3, CN II-XII intact Psychiatric exam: Present: normal affect, normal mood Skin exam: Present: warm, dry, intact, normal color. Absent: rash Course Vital Signs 10/11/22 10/11/22 06:30 08:43 Temperature 98.5 F 98.5 F Pulse Rate 70 72 Respiratory 18 18 Rate Blood Pressure 137/85 128/78 O2 Sat by Pulse 98 98 Oximetry Medical Decision Making - Medical Decision Making This is a 42-year-old female who presents to the emergency department for pain and burning in the genitalia. Was pt. sent in by a medical professional or institution? @ -No Did you speak to anyone other than the patient for history? @ -No Did you review nursing and triage notes? @ -Yes, and I agree, it is accurate with regards to the patient's symptoms. Were old charts reviewed? @ -No Differential Diagnosis? @ -Differential Vaginal/Buttocks Pain: Irritation, STI, Yeast infection, BV, UTI, pudendal neuralgia, this is not meant to be an all-inclusive list. EKG interpreted by me (3pts min.)? @ -Not obtained X-rays interpreted by me (1pt min.)? @ -Not obtained CT interpreted by me (1pt min.)? @ -Not obtained U/S interpreted by me (1pt. min.)? @ -Not obtained What testing was considered but not performed? (CT, X-rays, U/S, labs)? Why? @ -None What meds were considered but not given? Why? @ -None Did you discuss the management of the patient with other professionals? @ -No Did you reconcile home meds? @ -No Was smoking cessation discussed for >3mins.? @ -No Was critical care preformed (if so, how long)? @ -No Were there social determinants of health that impacted care today? How? (Homelessness, low income, unemployed, alcoholism, drug addiction, transportation, low edu. Level, literacy, decrease access to med. care, [facility], rehab)? @ -No Was there de-escalation of care discussed even if they declined? (Discuss DNR or withdrawal of care, Hospice)? @ -No What co-morbidities impacted this encounter? (DM, HTN, Smoking, COPD, CAD, Cancer, CVA, Hep., AIDS, mental health diagnosis, sleep apnea, morbid obesity)? @ -Morbid obesity Was patient admitted / discharged? @ -Discharged. Urinalysis negative for signs of infection. Physical examination is fairly unremarkable. There is some mild generalized erythema and a mild amount of white vaginal discharge. She did also appear to have 1 external hemorrhoid. Discussed with the patient that the cause of her symptoms is not entirely clear. We can treat her for both a possible vaginal candidiasis and the hemorrhoid. However, this does not rule out the possibility of another pathology. She was given a dose of fluconazole and Proctosol cream in the emergency department. Rx for additional dose of fluconazole provided. Advised she take this in 3 days, on 10/14, if symptoms persist. Advised that she can try using the Proctosol cream 2-4 times daily as needed. She was also instructed to have close follow-up with her primary care provider for reevaluation. Undiagnosed new problem with uncertain prognosis? @ -None Drug Therapy requiring intensive monitoring for toxicity (Heparin, Nitro, Insulin, Cardizem)? @ -None Were any procedures done? @ -None Diagnosis/symptom? @ -Vulvovaginal candidiasis, external hemorrhoid Acute, or Chronic, or Acute on Chronic? @ -Acute Uncomplicated (without systemic symptoms) or Complicated (systemic symptoms)? @ -Uncomplicated Side effects of treatment? @ -None Exacerbation, Progression, or Severe Exacerbation] @ -Not applicable Poses a threat to life or bodily function? @ -No Return precautions reviewed in depth, the patient is instructed to return to the emergency department with any new, worsening, or concerning symptoms. Patient verbalized understanding. This case was discussed in detail with the attending ED physician, Dr. Post. Presentation, findings, and treatment plan discussed in detail as well. - Lab Data Lab Results 10/11/22 10/11/22 Range/Units 07:38 07:38 Urine Color Yellow Urine Appearance Clear (Clear) Urine pH 6.0 (5.0-8.0) Ur Specific [place] 1.016 (1.001-1.035) Urine Protein Negative (Negative) Urine Glucose (UA) Negative (Negative) Urine Ketones Negative (Negative) Urine Blood Trace H (Negative) Urine Nitrite Negative (Negative) Urine Bilirubin Negative (Negative) Urine Urobilinogen <2.0 (<2.0) mg/dL Ur Leukocyte Esterase Negative (Negative) Urine RBC 1 (0-5) /hpf Urine WBC 2 (0-5) /hpf Ur Squamous Epith Cells 1 (0-4) /hpf Urine Mucus Rare H (None) /hpf Urine HCG, Qual Not Detected (Not Detectd) Disposition Clinical Impression: Vulvovaginal candidiasis, Hemorrhoid Disposition: HOME SELF-CARE Instructions (If sedation given, give patient instructions): Yeast Infection (ED) Additional Instructions: Return to the emergency department with any new, worsening, or concerning sympto ms. Take the Fluconazole in 3 days on 10/14 if your symptoms persist. You can apply the Proctosol cream 2-4 times daily as needed, however do not apply this internally. If you find the Monistat cream helpful, you can continue with this as well. Follow up with your primary care provider in 1-2 days. Prescriptions: Fluconazole 150 mg PO ONCE 1 Days #1 tab Is patient prescribed a controlled substance at d/c from ED?: No Referrals: Nadiya Phillips MD [Primary Care Provider] - 1-2 days
[2022-10-11] MEDS ORDERED: HYDROCORTISONE 2.5% RECTAL CREAM 30 GM TUBE RECTAL ONE (07:10)
[2022-10-11 07:51] LABS: Appearance,Urine Clear (Clear); Bilirubin,Urine Negative (Negative); Blood,Urine Trace (Negative); Color,Urine Yellow; Glucose,Urine (UA) Negative (Negative); Ketones,Urine Negative (Negative); Leukocyte Esterase,Urine Negative (Negative); Mucus,Urine Rare /hpf; Nitrite,Urine Negative (Negative); Protein,Urine Negative (Negative); RBC,Urine 1 /hpf (0-5); Specific Gravity,Urine 1.016 (1.001-1.035); Squamous Epithelial Cell,Urine 1 /hpf (0-4); Urobilinogen,Urine <2.0 mg/dL (<2.0); WBC,Urine 2 /hpf (0-5)
[2022-10-11] MEDS ORDERED: ACET/COD 300 MG/30 MG STARTER PACK 6 TAB BTL PO STA (08:28)
[2022-10-11] MEDS ORDERED: IBUPROFEN 600 MG STARTER PACK 4 TAB BTL PO STA (08:28)
[2022-10-11 08:43] VITALS: BP 128/78; PULSE 72
== END 2022-10-11 08:43 | disposition home or self-care (01) ==
LOC: EC 06:21
DX: B37.31 Acute candidiasis of vulva and vagina (principal); E11.9 Type 2 diabetes mellitus without complications; G47.30 Sleep apnea, unspecified; F41.9 Anxiety disorder, unspecified; F31.9 Bipolar disorder, unspecified; Z79.1 Long term (current) use of non-steroidal anti-inflammatories (NSAID); Z79.899 Other long term (current) drug therapy; Z87.891 Personal history of nicotine dependence
CPT/HCPCS: 81001; 81025; 99283

== ENCOUNTER 2022-11-01 08:12 | Emergency (ER) | payer OTHER ==
[2022-11-01 08:21] VITALS: BP 106/69; PULSE 73; RESP 18; TEMP 98
[2022-11-01] MEDS ORDERED: ACET/COD 300 MG/30 MG STARTER PACK 6 TAB BTL PO STA (08:28)
--- NOTE | 2022-11-01 08:28 | ED ---
ENT HPI - General Chief complaint: Dental/Oral Stated complaint: R Side Jaw pain Time Seen by Provider: 11/01/22 08:22 Source: patient, RN notes reviewed Mode of arrival: ambulatory Limitations: no limitations - History of Present Illness Initial comments: 42-year-old female presents emergency Department chief right lower jaw pain. Patient states that she had a molar extracted in the week. Patient states that she started having some discomfort she is concerned about dry socket she was using a straw. Patient denies any fevers chills she was discharged with ibuprofen. She attempted follow-up with the dental clinic this morning but they were unable to see her. Patient denies any fevers chills denies any difficulty swallowing. - Related Data Home Medications Medication Instructions Recorded Confirmed cloNIDine HCL [Catapres] 0.1 mg PO BID PRN 09/19/19 06/25/22 Atorvastatin [Lipitor] 10 mg PO DAILY 08/28/20 06/25/22 Meloxicam [Mobic] 15 mg PO DAILY 08/28/20 06/25/22 lisinopriL [Zestril] 5 mg PO DAILY 08/28/20 06/25/22 ziprasidone HCL [Geodon] 80 mg PO HS 08/28/20 06/25/22 Previous Rx's Medication Instructions Recorded HYDROcodone/APAP 5-325MG [[place] 1 tab PO Q6HR PRN 3 Days #12 tab 07/18/22 5-325] Ibuprofen [Motrin] 800 mg PO Q8H PRN #15 tab 07/18/22 Fluconazole 150 mg PO ONCE 1 Days #1 tab 10/11/22 clindamycin HCL 300 mg PO QID #40 cap 11/01/22 Allergies Allergy/AdvReac Type Severity Reaction Status Date / Time No Known Allergies Allergy Verified 11/01/22 08:18 Review of Systems ROS Statement: Those systems with pertinent positive or pertinent negative responses have been documented in the HPI. ROS Other: All systems not noted in ROS Statement are negative. Past Medical History Past Medical History: GERD/Reflux, Sleep Apnea/CPAP/BIPAP Additional Past Medical History / Comment(s): Pt. has a hx. of DM but lost wt. and started exercising approx. one year ago and no longer needs oral diabetic meds. or diabetic diet; Pt. takes omeprazole otc, when needed for acid reflux; Pt. stated not using cpap machine. Pt. states she has chronic back pain but has no diagnosis and no prev. injury; Pt. has endometriosis and interstitial cystitis., diverticulits History of Any Multi-Drug Resistant Organisms: None Reported Past Surgical History: Tubal Ligation Additional Past Surgical History / Comment(s): d & c Past Anesthesia/Blood Transfusion Reactions: No Reported Reaction Past Psychological History: Anxiety, Bipolar, Depression, PTSD Smoking Status: Former smoker Past Alcohol Use History: None Reported Past Drug Use History: None Reported - Past Family History Father Family Medical History: Cancer, Congestive Heart Failure (CHF), Diabetes Mellitus, Dialysis, Hypertension, Renal Disease General Exam Limitations: no limitations General appearance: alert, in no apparent distress Head exam: Present: atraumatic, normocephalic, normal inspection Eye exam: Present: normal appearance, PERRL, EOMI. Absent: scleral icterus, conjunctival injection, periorbital swelling ENT exam: Present: mucous membranes moist. Absent: normal exam, normal oropharynx (Recent extraction right lower, mild swelling) Neck exam: Present: normal inspection ( no purulent drainage, tenderness along the submandibular region), full ROM. Absent: tenderness, meningismus, lymphadenopathy Respiratory exam: Present: normal lung sounds bilaterally. Absent: respiratory distress, wheezes, rales, rhonchi, stridor Cardiovascular Exam: Present: regular rate, normal rhythm, normal heart sounds. Absent: systolic murmur, diastolic murmur, rubs, gallop, clicks Course Vital Signs 11/01/22 08:18 Temperature 98.0 F Pulse Rate 73 Respiratory 18 Rate Blood Pressure 106/69 O2 Sat by Pulse 96 Oximetry Medical Decision Making - Medical Decision Making Was pt. sent in by a medical professional or institution (, PA, SPREADING MACHINE OPERATOR, urgent care, hospital, or correction...) When possible be specific @ -No Did you speak to anyone other than the patient for history (EMS, parent, family, police, friend...)? What history was obtained from this source @ -No Did you review nursing and triage notes (agree or disagree)? Why? @ -I reviewed and agree with nursing and triage notes Were old charts reviewed (outside hosp., previous admission, EMS record, old EKG, old radiological studies, urgent care reports/EKG's, correction records)? Report findings @ -No old charts were reviewed Differential Diagnosis (chest pain, altered mental status, abdominal pain women, abdominal pain men, vaginal bleeding, weakness, fever, dyspnea, syncope, headache, dizziness, GI bleed, back pain, seizure, CVA, palpatations, mental health, musculoskeletal)? @ -Dry socket, dental infection, dental pain EKG interpreted by me (3pts min.). @ -None X-rays interpreted by me (1pt min.). @ -None done CT interpreted by me (1pt min.). @ -None done U/S interpreted by me (1pt. min.). @ -None done What testing was considered but not performed or refused? (CT, X-rays, U/S, labs)? Why? @ -None What meds were considered but not given or refused? Why? @ -None Did you discuss the management of the patient with other professionals (professionals i.e. , PA, SPREADING MACHINE OPERATOR, lab, RT, psych nurse, social media content specialist, proposal review analyst, teacher, business liaison officer, onsite case manager)? Give summary @ -No Was smoking cessation discussed for >3mins.? @ -No Was critical care preformed (if so, how long)? @ -No Were there social determinants of health that impacted care today? How? (Homelessness, low income, unemployed, alcoholism, drug addiction, transportation, low edu. Level, literacy, decrease access to med. care, longterm, rehab)? @ -No Was there de-escalation of care discussed even if they declined (Discuss DNR or withdrawal of care, Hospice)? DNR status @ -No What co-morbidities impacted this encounter? (DM, HTN, Smoking, COPD, CAD, Cancer, CVA, ARF, Chemo, Hep., AIDS, mental health diagnosis, sleep apnea, morbid obesity)? @ -None Was patient admitted / discharged? Hospital course, mention meds given and route, prescriptions, significant lab abnormalities, going to OR and other pertinent info. @ -Discharge there is some concern about possible infection versus dry socket. She will need to follow-up with her dentist if it persists for her dry socket. Patient was placed on clindamycin, pain control return parameters were discussed. Undiagnosed new problem with uncertain prognosis? @ -No Drug Therapy requiring intensive monitoring for toxicity (Heparin, Nitro, Insulin, Cardizem)? @ -No Were any procedures done? @ -No Diagnosis/symptom? @ -[Dental pain Acute, or Chronic, or Acute on Chronic? @ -Acute Uncomplicated (without systemic symptoms) or Complicated (systemic symptoms)? @ -Uncomplicated Side effects of treatment? @ -No Exacerbation, Progression, or Severe Exacerbation? @ -No Poses a threat to life or bodily function? How? (Chest pain, [place], [place], pneumonia, PE, COPD, DKA, ARF, appy, cholecystitis, CVA, Diverticulitis, Homicidal, Suicidal, threat to staff... and all critical care pts) @ -No Disposition Clinical Impression: Pain, dental Disposition: HOME SELF-CARE Condition: Stable Instructions (If sedation given, give patient instructions): Dry Socket (ED) Additional Instructions: Please return to the Emergency Department if symptoms worsen or any other concerns. Prescriptions: clindamycin HCL 300 mg PO QID #40 cap Is patient prescribed a controlled substance at d/c from ED?: No Referrals: Nadiya Phillips MD [Primary Care Provider] - 1-2 days Time of Disposition: 08:28
== END 2022-11-01 08:46 | disposition home or self-care (01) ==
LOC: EC 08:12
DX: K08.89 Other specified disorders of teeth and supporting structures (principal); F31.9 Bipolar disorder, unspecified; F41.9 Anxiety disorder, unspecified; Z79.1 Long term (current) use of non-steroidal anti-inflammatories (NSAID); Z79.899 Other long term (current) drug therapy; Z87.891 Personal history of nicotine dependence
CPT/HCPCS: 99283

== ENCOUNTER 2023-12-27 09:26 | Emergency (ER) | payer MEDICARE, OTHER ==
[2023-12-27 09:45] VITALS: RESP 16; TEMP 98.4
--- NOTE | 2023-12-27 09:52 | ED ---
General Adult HPI - General Chief complaint: Extremity Injury, Lower Stated complaint: R Foot Pain Time Seen by Provider: 12/27/23 09:39 Source: patient, EMS, RN notes reviewed Mode of arrival: EMS Limitations: no limitations - History of Present Illness Initial comments: Patient is a 43-year-old female present to the emergency department with concerns with right foot pain. Onset of symptoms was around 4 years ago. Patient is on her feet a lot. Patient has been working a lot lately and feels she may have injured it. Discomfort is mostly the lateral right foot. Patient has seen a foot doctor for this and discussion regarding possible surgeries. Patient states she has known bunions and heel spurs and plantar fasciitis - Related Data Home Medications Medication Instructions Recorded Confirmed cloNIDine HCL [Catapres] 0.1 mg PO BID PRN 09/19/19 06/25/22 Atorvastatin [Lipitor] 10 mg PO DAILY 08/28/20 06/25/22 Meloxicam [Mobic] 15 mg PO DAILY 08/28/20 06/25/22 lisinopriL [Zestril] 5 mg PO DAILY 08/28/20 06/25/22 ziprasidone HCL [Geodon] 80 mg PO HS 08/28/20 06/25/22 Previous Rx's Medication Instructions Recorded HYDROcodone/APAP 5-325MG [[place] 1 tab PO Q6HR PRN 3 Days #12 tab 07/18/22 5-325] Ibuprofen [Motrin] 800 mg PO Q8H PRN #15 tab 07/18/22 Fluconazole 150 mg PO ONCE 1 Days #1 tab 10/11/22 clindamycin HCL 300 mg PO QID #40 cap 11/01/22 Ibuprofen [Motrin] 600 mg PO Q6HR PRN #20 tab 12/27/23 Allergies Allergy/AdvReac Type Severity Reaction Status Date / Time No Known Allergies Allergy Verified 12/27/23 09:43 Review of Systems ROS Statement: Those systems with pertinent positive or pertinent negative responses have been documented in the HPI. ROS Other: All systems not noted in ROS Statement are negative. Constitutional: Denies: fever Eyes: Denies: eye pain ENT: Denies: ear pain Respiratory: Denies: dyspnea Cardiovascular: Denies: chest pain Endocrine: Denies: fatigue Gastrointestinal: Denies: abdominal pain Musculoskeletal: Reports: as per HPI Past Medical History Past Medical History: GERD/Reflux, Sleep Apnea/CPAP/BIPAP Additional Past Medical History / Comment(s): Pt. has a hx. of DM but lost wt. and started exercising approx. one year ago and no longer needs oral diabetic meds. or diabetic diet; Pt. takes omeprazole otc, when needed for acid reflux; Pt. stated not using cpap machine. Pt. states she has chronic back pain but has no diagnosis and no prev. injury; Pt. has endometriosis and interstitial cystitis., diverticulits History of Any Multi-Drug Resistant Organisms: None Reported Past Surgical History: Tubal Ligation Additional Past Surgical History / Comment(s): d & c Past Anesthesia/Blood Transfusion Reactions: No Reported Reaction Past Psychological History: Anxiety, Bipolar, Depression, PTSD Smoking Status: Former smoker Past Alcohol Use History: None Reported Past Drug Use History: None Reported - Past Family History Father Family Medical History: Cancer, Congestive Heart Failure (CHF), Diabetes Mellitus, Dialysis, Hypertension, Renal Disease General Exam Limitations: no limitations General appearance: alert, in no apparent distress Head exam: Present: normocephalic Eye exam: Present: normal appearance Respiratory exam: Present: normal lung sounds bilaterally Cardiovascular Exam: Present: regular rate, normal rhythm Expanded Peripheral pulses: 2+: Posterior Tibialis (R), Dorsalis Pedis (R) GI/Abdominal exam: Present: soft. Absent: tenderness Extremities exam: Present: tenderness (Right lateral foot, mostly of the fifth metatarsal. Distally the extremity is neurovascularly intact. No swelling or erythema.) Neurological exam: Present: alert. Absent: motor sensory deficit Psychiatric exam: Present: normal affect, normal mood Skin exam: Present: normal color. Absent: rash, erythema Course Vital Signs 12/27/23 09:43 Temperature 98.4 F Pulse Rate 70 Respiratory 16 Rate Blood Pressure 168/101 O2 Sat by Pulse 95 Oximetry Medical Decision Making - Medical Decision Making Was pt. sent in by a medical professional or institution (, PA, [employer] MANAGER, urgent care, hospital, or usp...) When possible be specific @ -No Did you speak to anyone other than the patient for history (EMS, parent, family, police, friend...)? What history was obtained from this source @ -No Did you review nursing and triage notes (agree or disagree)? Why? @ -I reviewed and agree with nursing and triage notes Were old charts reviewed (outside hosp., previous admission, EMS record, old EKG, old radiological studies, urgent care reports/EKG's, usp records)? Report findings @ -No old charts were reviewed Differential Diagnosis (chest pain, altered mental status, abdominal pain women, abdominal pain men, vaginal bleeding, weakness, fever, dyspnea, syncope, headache, dizziness, GI bleed, back pain, seizure, CVA, palpatations, mental health, musculoskeletal)? @ -Differential Musculoskeletal Muscular strain, contusion, ligament sprain, fracture, arthritis, septic arthritis, bursitis, cellulitis, muscle spasm, nerve compression, DVT, arterial occlusion, herpes zoster, electrolyte abnormality, tumor.... This is not meant to be in all inclusive list EKG interpreted by me (3pts min.). @ -As above X-rays interpreted by me (1pt min.). @ -None done CT interpreted by me (1pt min.). @ -None done U/S interpreted by me (1pt. min.). @ -None done What testing was considered but not performed or refused? (CT, X-rays, U/S, labs)? Why? @ -None What meds were considered but not given or refused? Why? @ -None Did you discuss the management of the patient with other professionals (professionals i.e. , PA, [employer] MANAGER, lab, RT, psych nurse, social sciences department chair, bar steward, teacher, natural resource officer, community case manager)? Give summary @ -No Was smoking cessation discussed for >3mins.? @ -No Was critical care preformed (if so, how long)? @ -No Were there social determinants of health that impacted care today? How? (Homelessness, low income, unemployed, alcoholism, drug addiction, transportation, low edu. Level, literacy, decrease access to med. care, [facility], rehab)? @ -No Was there de-escalation of care discussed even if they declined (Discuss DNR or withdrawal of care, Hospice)? DNR status @ -No What co-morbidities impacted this encounter? (DM, HTN, Smoking, COPD, CAD, Cancer, CVA, ARF, Chemo, Hep., AIDS, mental health diagnosis, sleep apnea, morbid obesity)? @ -None Was patient admitted / discharged? Hospital course, mention meds given and route, prescriptions, significant lab abnormalities, going to OR and other pertinent info. @ -Patient reevaluated and updated. Patient will be discharged with medications and follow-up. Undiagnosed new problem with uncertain prognosis? @ -No Drug Therapy requiring intensive monitoring for toxicity (Heparin, Nitro, Insulin, Cardizem)? @ -No Were any procedures done? @ -No Diagnosis/symptom? @ -Strain of foot Acute, or Chronic, or Acute on Chronic? @ -Acute on chronic Uncomplicated (without systemic symptoms) or Complicated (systemic symptoms)? @ -Default Side effects of treatment? @ -No Exacerbation, Progression, or Severe Exacerbation? @ -No Poses a threat to life or bodily function? How? (Chest pain, [place], [place], pneumonia, PE, COPD, DKA, ARF, appy, cholecystitis, CVA, Diverticulitis, Homicidal, Suicidal, threat to staff... and all critical care pts) @ -No Disposition Clinical Impression: Right foot strain Disposition: HOME SELF-CARE Condition: Stable Instructions (If sedation given, give patient instructions): Foot Sprain (ED) Additional Instructions: Prescription for Motrin 600 sent to pharmacy. Do not take with Mobic. Please do follow-up with your foot doctor and primary care physician beginning of the week. Return for increased pain, redness, swelling, fever, worsening or changing symptoms or any other concerns. Prescriptions: Ibuprofen [Motrin] 600 mg PO Q6HR PRN #20 tab PRN Reason: Pain Is patient prescribed a controlled substance at d/c from ED?: No Referrals: Nadiya Phillips MD [Primary Care Provider] - 1-2 days Time of Disposition: 10:41
--- NOTE | 2023-12-27 10:18 | XR ---
EXAMINATION TYPE: XR foot complete RT DATE OF EXAM: 12/27/2023 COMPARISON: 01/05/2021 HISTORY: Pain TECHNIQUE: 3 view right foot FINDINGS: Presuming old fracture of the proximal phalanx fifth digit. No acute fractures are identifi ed. Plantar calcaneal spur is present. Joint spaces are preserved. No significant interval change is evident. Follow up exams can be performed 7-10 days from acute trauma continued pain. IMPRESSION: 1. Plantar calcaneal heel spur. 2. No acute osseous abnormality radiographically apparent. [facility], , 12/27/2023 10:16 AM
[2023-12-27] MEDS: ACET/COD 300 MG/30 MG STARTER PACK 6 TAB BTL PO STA (11:33)
[2023-12-27] MEDS: KETOROLAC 15 MG/ML 1 ML VIAL IM STA (11:33)
[2023-12-27 11:36] VITALS: BP 144/82; PULSE 64
== END 2023-12-27 11:36 | disposition home or self-care (01) ==
LOC: EC 09:26
CPT/HCPCS: 96372; 99283

== ENCOUNTER 2024-06-14 04:33 | Emergency (ER) | payer MEDICAID ==
--- NOTE | 2024-06-14 04:55 | ED ---
Abdominal Pain HPI - General Chief Complaint: Abdominal Pain Stated Complaint: NVD Time Seen by Provider: 06/14/24 04:51 Source: patient, RN notes reviewed, old records reviewed Mode of arrival: wheelchair Limitations: no limitations - History of Present Illness Initial Comments: This is a 43-year-old female with multiple complaints today. Patient's main complaint is nausea vomiting and diarrhea these events are occurring simultaneously with puking improving at the same time. She is also having abdominal pain which she thinks may related to diverticulitis concern for food poisoning with persistent pain nausea vomiting and diarrhea here in the em ergency department she does feel feverish lightheaded and sweaty MD Complaint: abdominal pain, other (Vomiting diarrhea) -: hour(s) Location: diffuse, LLQ Radiation: LLQ Migration to: periumbilical, epigastric, suprapubic Severity: severe Severity scale (1-10): 8 Quality: stabbing Consistency: constant Improves With: nothing Worsens With: nothing Associated Symptoms: nausea, vomiting, diarrhea Treatments Prior to Arrival: other - Related Data Home Medications Medication Instructions Recorded Confirmed cloNIDine HCL [Catapres] 0.1 mg PO BID PRN 09/19/19 06/25/22 Atorvastatin [Lipitor] 10 mg PO DAILY 08/28/20 06/25/22 Meloxicam [Mobic] 15 mg PO DAILY 08/28/20 06/25/22 lisinopriL [Zestril] 5 mg PO DAILY 08/28/20 06/25/22 ziprasidone HCL [Geodon] 80 mg PO HS 08/28/20 06/25/22 Previous Rx's Medication Instructions Recorded HYDROcodone/APAP 5-325MG [[place] 1 tab PO Q6HR PRN 3 Days #12 tab 07/18/22 5-325] Ibuprofen [Motrin] 800 mg PO Q8H PRN #15 tab 07/18/22 Fluconazole 150 mg PO ONCE 1 Days #1 tab 10/11/22 clindamycin HCL 300 mg PO QID #40 cap 11/01/22 Ibuprofen [Motrin] 600 mg PO Q6HR PRN #20 tab 12/27/23 Allergies Allergy/AdvReac Type Severity Reaction Status Date / Time No Known Allergies Allergy Verified 06/14/24 04:44 Review of Systems ROS Statement: Those systems with pertinent positive or pertinent negative responses have been documented in the HPI. ROS Other: All systems not noted in ROS Statement are negative. Past Medical History Past Medical History: GERD/Reflux, Sleep Apnea/CPAP/BIPAP Additional Past Medical History / Comment(s): Pt. has a hx. of DM but lost wt. and started exercising approx. one year ago and no longer needs oral diabetic meds. or diabetic diet; Pt. takes omeprazole otc, when needed for acid reflux; Pt. stated not using cpap machine. Pt. states she has chronic back pain but has no diagnosis and no prev. injury; Pt. has endometriosis and interstitial cystitis., diverticulits History of Any Multi-Drug Resistant Organisms: None Reported Past Surgical History: Tubal Ligation Additional Past Surgical History / Comment(s): d & c Past Anesthesia/Blood Transfusion Reactions: No Reported Reaction Past Psychological History: Anxiety, Bipolar, Depression, PTSD Smoking Status: Former smoker Past Alcohol Use History: None Reported Past Drug Use History: None Reported - Past Family History Father Family Medical History: Cancer, Congestive Heart Failure (CHF), Diabetes Mellitus, Dialysis, Hypertension, Renal Disease General Exam Limitations: no limitations General appearance: alert, in no apparent distress Head exam: Present: atraumatic, normocephalic, normal inspection Eye exam: Present: normal appearance, PERRL, EOMI. Absent: scleral icterus, conjunctival injection, periorbital swelling ENT exam: Present: normal exam, mucous membranes moist Neck exam: Present: normal inspection. Absent: tenderness, meningismus, lymphadenopathy Respiratory exam: Present: normal lung sounds bilaterally. Absent: respiratory distress, wheezes, rales, rhonchi, stridor Cardiovascular Exam: Present: regular rate, normal rhythm, normal heart sounds. Absent: systolic murmur, diastolic murmur, rubs, gallop, clicks GI/Abdominal exam: Present: soft, normal bowel sounds. Absent: distended, tenderness, guarding, rebound, rigid Extremities exam: Present: normal inspection, full ROM, normal capillary refill. Absent: tenderness, pedal edema, joint swelling, calf tenderness Back exam: Present: normal inspection Neurological exam: Present: alert, oriented X3, CN II-XII intact Psychiatric exam: Present: normal affect, normal mood Skin exam: Present: warm, dry, intact, normal color. Absent: rash Course Vital Signs 06/14/24 06/14/24 06/14/24 04:45 06:50 08:45 Temperature 98.1 F 98 F Pulse Rate 92 80 78 Respiratory 18 16 16 Rate Blood Pressure 126/82 126/83 128/74 O2 Sat by Pulse 96 97 Oximetry - Reevaluation(s) Reevaluation #1: 06/14/24 05:51 Records reviewed Reevaluation #2: Patient symptoms improving, Reevaluation #3: Patient informed of results and questions answered Reevaluation #4: Was pt. sent in by a medical professional or institution (, HERMELINDO, [employer] DISTRIBUTOR, urgent care, hospital, or [facility]...) When possible be specific @ -no Did you speak to anyone other than the patient for history (EMS, parent, family, police, friend...)? What history was obtained from this source @ -no Did you review nursing and triage notes (agree or disagree)? Why? @ -agree Are old charts reviewed (outside hosp., previous admission, EMS record, old EKG, old radiological studies, urgent care reports/EKG's, [facility] records)? Report findings @ -yes Differential Diagnosis (chest pain, altered mental status, abdominal pain women, abdominal pain men, vaginal bleeding, weakness, fever, dyspnea, syncope, headache, dizziness, GI bleed, back pain, seizure, CVA, palpatations, mental health, musculoskeletal)? @ -prior EKG interpreted by me (3pts min.). @ -no X-rays interpreted by me (1pt min.). @ -no CT interpreted by me (1pt min.). @ -yes negative for acute disease U/S interpreted by me (1pt. min.). @ -no What testing was considered but not performed or refused? (CT, X-rays, U/S, labs)? Why? @ -none What meds were considered but not given or refused? Why? @ -none Did you discuss the management of the patient with other professionals (p naseemfessionals i.e. , HERMELINDO, [employer] DISTRIBUTOR, lab, RT, psych nurse, hospital social worker, block paver, teacher, chief mechanical officer, case maker)? Give summary @ -no Was smoking cessation discussed for >3mins.? @ -no Was critical care preformed (if so, how long)? @ -no Were there social determinants of health that impacted care today? How? (Homelessness, low income, unemployed, alcoholism, drug addiction, transportation, low edu. Level, literacy, decrease access to med. care, long term, rehab)? @ -none Was there de-escalation of care discussed even if they declined (Discuss DNR or withdrawal of care, Hospice)? DNR status @ -no What co-morbidities impacted this encounter? (DM, HTN, Smoking, COPD, CAD, Cancer, CVA, ARF, Chemo, Hep., AIDS, mental health diagnosis, sleep apnea, morbid obesity)? @ -none Was patient admitted / discharged? Hospital course, mention meds given and route, prescriptions, significant lab abnormalities, going to OR and other pertinent info. @ - 43 female with abdominal pain nausea vomiting and diarrhea. Symptoms dramatically improved here in the ER feels well can be discharged home Discharge Undiagnosed new problem with uncertain prognosis? @ -no Drug Therapy requiring intensive monitoring for toxicity (Heparin, Nitro, Insulin, Cardizem)? @ -no Were any procedures done? @ -no Diagnosis/symptom? @ -Nausea vomiting diarrhea Acute, or Chronic, or Acute on Chronic? @ -Acute Uncomplicated (without systemic symptoms) or Complicated (systemic symptoms)? @ -Complicated Side effects of treatment? @ -no Exacerbation, Progression, or Severe Exacerbation? @ -exacerbation Poses a threat to life or bodily function? How? (Chest pain, [place], [place], pneumonia, PE, COPD, DKA, ARF, appy, cholecystitis, CVA, Diverticulitis, Homicidal, Suicidal, threat to staff... and all critical care pts) @ -no Reevaluation #5: Differential Abdominal Pain Women: Appendicitis, Cholecystitis, diverticulosis, ischemic bowel, pancreatitis, hepatitis, UTI, gastroenteritis, AAA, incarcerated hernia, bowel obstruction, constipation, inflammatory bowel, hepatitis, peptic ulcer disease, splenic infarction, perforated viscus, vulvitis, ovarian torsion, PID, kidney stone, placenta abruption, this is not meant to be an all-inclusive list Medical Decision Making - Medical Decision Making 43 female with abdominal pain nausea vomiting and diarrhea. Symptoms dramatically improved here in the ER feels well can be discharged home - Lab Data Result diagrams: 06/14/24 05:05 06/14/24 05:05 Lab Results 06/14/24 06/14/24 06/14/24 Range/Units 05:05 05:05 05:05 WBC 12.1 H (3.8-10.6) k/uL RBC 5.39 (3.80-5.40) m/uL Hgb 15.7 (11.4-16.0) gm/dL Hct 49.2 H (34.0-46.0) % MCV 91.2 (80.0-100.0) fL MCH 29.1 (25.0-35.0) pg MCHC 31.9 (31.0-37.0) g/dL RDW 13.7 (11.5-15.5) % Plt Count 337 (150-450) k/uL MPV 7.5 Neutrophils % 89 % Lymphocytes % 5 % Monocytes % 4 % Eosinophils % 2 % Basophils % 0 % Neutrophils # 10.8 H (1.3-7.7) k/uL Lymphocytes # 0.6 L (1.0-4.8) k/uL Monocytes # 0.4 (0-1.0) k/uL Eosinophils # 0.2 (0-0.7) k/uL Basophils # 0.0 (0-0.2) k/uL Sodium 138 (137-145) mmol/L Potassium 4.4 (3.5-5.1) mmol/L Chloride 104 (98-107) mmol/L Carbon Dioxide 21 L (22-30) mmol/L Anion Gap 13 mmol/L BUN 19 H (7-17) mg/dL Creatinine 0.59 (0.52-1.04) mg/dL Est GFR (CKD-EPI)AfAm >90 (>60 ml/min/1.73 sqM) Est GFR (CKD-EPI)NonAf >90 (>60 ml/min/1.73 sqM) Glucose 129 H (74-99) mg/dL Lactic Ac Sepsis Rflx Plasma Lactic Acid Zia 2.5 H* (0.7-2.0) mmol/L Calcium 10.0 (8.4-10.2) mg/dL Total Bilirubin 0.6 (0.2-1.3) mg/dL AST 21 (14-36) U/L ALT 22 (4-34) U/L Alkaline Phosphatase 77 (38-126) U/L Troponin I (0.000-0.034) ng/mL Total Protein 7.6 (6.3-8.2) g/dL Albumin 4.6 (3.5-5.0) g/dL Amylase 47 (30-110) U/L Lipase 121 (23-300) U/L 06/14/24 06/14/24 Range/Units 05:05 06:40 WBC (3.8-10.6) k/uL RBC (3.80-5.40) m/uL Hgb (11.4-16.0) gm/dL Hct (34.0-46.0) % MCV (80.0-100.0) fL MCH (25.0-35.0) pg MCHC (31.0-37.0) g/dL RDW (11.5-15.5) % Plt Count (150-450) k/uL MPV Neutrophils % % Lymphocytes % % Monocytes % % Eosinophils % % Basophils % % Neutrophils # (1.3-7.7) k/uL Lymphocytes # (1.0-4.8) k/uL Monocytes # (0-1.0) k/uL Eosinophils # (0-0.7) k/uL Basophils # (0-0.2) k/uL Sodium (137-145) mmol/L Potassium (3.5-5.1) mmol/L Chloride (98-107) mmol/L Carbon Dioxide (22-30) mmol/L Anion Gap mmol/L BUN (7-17) mg/dL Creatinine (0.52-1.04) mg/dL Est GFR (CKD-EPI)AfAm (>60 ml/min/1.73 sqM) Est GFR (CKD-EPI)NonAf (>60 ml/min/1.73 sqM) Glucose (74-99) mg/dL Lactic Ac Sepsis Rflx Y Plasma Lactic Acid Zia (0.7-2.0) mmol/L Calcium (8.4-10.2) mg/dL Total Bilirubin (0.2-1.3) mg/dL AST (14-36) U/L ALT (4-34) U/L Alkaline Phosphatase (38-126) U/L Troponin I <0.012 (0.000-0.034) ng/mL Total Protein (6.3-8.2) g/dL Albumin (3.5-5.0) g/dL Amylase (30-110) U/L Lipase (23-300) U/L - Radiology Data Radiology results: report reviewed (CT abdomen pelvis is negative for acute disease), image reviewed Disposition Clinical Impression: Abdominal pain, Gastroenteritis Disposition: ADMITTED IP TO THIS [facility] Condition: Fair Instructions (If sedation given, give patient instructions): Gastroenteritis (ED) Is patient prescribed a controlled substance at d/c from ED?: No Referrals: Jaison Mays MD [Primary Care Provider] - 1-2 days Time of Disposition: 06:30
[2024-06-14] MEDS: SODIUM CHLORIDE 0.9% 1,000 ML IV ONE (05:04)
[2024-06-14] MEDS: ONDANSETRON 4 MG/2 ML VIAL IVP STA (05:05)
[2024-06-14] MEDS: HYDROmorphone 0.5 MG/0.5 ML SYRINGE IVP STA ×2 (05:07→07:39)
[2024-06-14 05:43] LABS: ALT 22 U/L (4-34); AST 21 U/L (14-36); African American GFR (CKD) >90 (>60 ml/min/1.73 sqM); Albumin 4.6 g/dL (3.5-5.0); Alkaline Phosphatase 77 U/L (38-126); Amylase 47 U/L (30-110); Anion Gap 13 mmol/L; Blood Urea Nitrogen 19 mg/dL (7-17); Carbon Dioxide 21 mmol/L (22-30); Chloride 104 mmol/L (98-107); Glucose 129 mg/dL (74-99); Lipase 121 U/L (23-300); Non-African American GFR(CKD) >90 (>60 ml/min/1.73 sqM); Potassium 4.4 mmol/L (3.5-5.1); Sodium 138 mmol/L (137-145); Total Bilirubin 0.6 mg/dL (0.2-1.3); Total Protein 7.6 g/dL (6.3-8.2)
--- NOTE | 2024-06-14 06:31 | CT ---
EXAMINATION TYPE: CT abdomen pelvis w con DATE OF EXAM: 06/14/2024 COMPARISON: Prior CT February 20, 2022 CLINICAL INDICATION: Female, 43 years old with history of nv,pain, Pt presents with nausea, vomiting, diarrhea, abdominal pain since 0100., TECHNIQUE: CT scan of the abdomen and pelvis is performed with IV Contrast, patient injected with 100 mL of Isov ue 300., (none if empty) Oral contrast used: without Oral Contrast (none if empty) CT DLP: 1734.5 mGycm, Automated exposure control for dose reduction was used. FINDINGS: LUNG BASES: Mild posterior right basilar linear scarring and/or atelectasis. LIVER/GB: Visualized liver is heterogeneously hypodense consistent with diffuse fatty infiltration. PANCREAS: No significant abnormality is seen. SPLEEN: Small splenule in splenic hilum on axial image 30 is redemonstrated. ADRENALS: No significant abnormality is seen. KIDNEYS: Symmetric corticomedullary uptake and excretion without hydronephrosis seen bilaterally. BOWEL: There is no suspicious small or large bowel dilatation. A few diverticula in the distal colon are redemonstrated. No CT evidence for acute diverticulitis. Fluid throughout portions of the colon i s noted. UTERUS/ADNEXA: Anteverted uterus redemonstrated. LYMPH NODES: No greater than 1cm abdominal or pelvic lymph nodes are appreciated. OSSEOUS STRUCTURES: Moderate disc space narrowing with vacuum disc phenomenon at L5-S1 level is redem onstrated. OTHER: No significant additional abnormality is seen. IMPRESSION: Fluid in the colon is abnormal finding and could reflect diarrhea and/or product of a mil d uncomplicated colitis. No bowel obstruction noted. [facility], , 06/14/2024 6:29 AM
[2024-06-14 06:50] LABS: Basophils % (A) 0 %; Eosinophils # (A) 0.2 k/uL (0-0.7); Eosinophils % (A) 2 %; HCT 49.2 % (34.0-46.0); HGB 15.7 gm/dL (11.4-16.0); Lymphocytes # (A) 0.6 k/uL (1.0-4.8); Lymphocytes % (A) 5 %; MCH 29.1 pg (25.0-35.0); MCHC 31.9 g/dL (31.0-37.0); MCV 91.2 fL (80.0-100.0); Mean Platelet Volume 7.5; Monocytes # (A) 0.4 k/uL (0-1.0); Monocytes % (A) 4 %; Neutrophils # (A) 10.8 k/uL (1.3-7.7); Neutrophils % (A) 89 %; Platelet Count 337 k/uL (150-450); RBC 5.39 m/uL (3.80-5.40); RDW 13.7 % (11.5-15.5); WBC 12.1 k/uL (3.8-10.6)
[2024-06-14 06:52] VITALS: RESP 16
[2024-06-14] MEDS: traMADol 50 MG STARTER PACK 3 TAB BTL PO STA (08:07)
[2024-06-14] MEDS: DIPHENOX-ATROP STARTER PACK 8 TAB BTL PO STA (08:07)
[2024-06-14] MEDS: ONDANSETRON 4 MG ODT STARTER PACK 2 TAB BTL PO STA (08:07)
[2024-06-14 08:46] VITALS: BP 128/74; PULSE 78; TEMP 98
== END 2024-06-14 08:45 | disposition other institution (70) ==
LOC: EC 04:33
DX: K52.9 Noninfective gastroenteritis and colitis, unspecified (principal); Z87.891 Personal history of nicotine dependence
CPT/HCPCS: 36415; 80053; 82150; 83605; 83690; 84484; 85025; 74177; 99285; 96374; 96375; 96361; J2405; S0119; J1171; Q9967

== ENCOUNTER 2024-08-18 15:06 | Emergency (ER) | payer MEDICAID ==
--- NOTE | 2024-08-18 16:02 | ED ---
General Adult HPI - General Chief complaint: Chest Pain Stated complaint: chest pain Time Seen by Provider: 08/18/24 15:23 Source: patient Mode of arrival: ambulatory Limitations: no limitations - History of Present Illness Initial comments: Dictation was produced using [employer] dictation software. please excuse any grammatical, word or spelling errors. Chief Complaint: 43-year-old female chest pain History of Present Illness: Patient 43-year-old female with history of hypertension, borderline diabetes and tobacco use presents with intermittent chest pain states that is sharp to the left substernal area. Not rating not associated diaphoresis nausea. Patient states that her symptoms began at work while she was exerting herself. Denies any family history of heart attacks The ROS documented in this emergency department record has been reviewed and confirmed by me. Those systems with pertinent positive or negative responses have been documented in the HPI. All other systems are other negative and/or noncontributory. - Related Data Home Medications Medication Instructions Recorded Confirmed cloNIDine HCL [Catapres] 0.1 mg PO BID PRN 09/19/19 06/25/22 Atorvastatin [Lipitor] 10 mg PO DAILY 08/28/20 06/25/22 Meloxicam [Mobic] 15 mg PO DAILY 08/28/20 06/25/22 lisinopriL [Zestril] 5 mg PO DAILY 08/28/20 06/25/22 ziprasidone HCL [Geodon] 80 mg PO HS 08/28/20 06/25/22 Previous Rx's Medication Instructions Recorded HYDROcodone/APAP 5-325MG [Dema 1 tab PO Q6HR PRN 3 Days #12 tab 07/18/22 5-325] Ibuprofen [Motrin] 800 mg PO Q8H PRN #15 tab 07/18/22 Fluconazole 150 mg PO ONCE 1 Days #1 tab 10/11/22 clindamycin HCL 300 mg PO QID #40 cap 11/01/22 Ibuprofen [Motrin] 600 mg PO Q6HR PRN #20 tab 12/27/23 Allergies Allergy/AdvReac Type Severity Reaction Status Date / Time No Known Allergies Allergy Verified 08/18/24 15:20 Review of Systems ROS Statement: Those systems with pertinent positive or pertinent negative responses have been documented in the HPI. ROS Other: All systems not noted in ROS Statement are negative. Past Medical History Past Medical History: GERD/Reflux, Sleep Apnea/CPAP/BIPAP Additional Past Medical History / Comment(s): Pt. has a hx. of DM but lost wt. and started exercising approx. one year ago and no longer needs oral diabetic m eds. or diabetic diet; Pt. takes omeprazole otc, when needed for acid reflux; Pt. stated not using cpap machine. Pt. states she has chronic back pain but has no diagnosis and no prev. injury; Pt. has endometriosis and interstitial cystitis., diverticulits History of Any Multi-Drug Resistant Organisms: None Reported Past Surgical History: Tubal Ligation Additional Past Surgical History / Comment(s): d & c Past Anesthesia/Blood Transfusion Reactions: No Reported Reaction Past Psychological History: Anxiety, Bipolar, Depression, PTSD Smoking Status: Former smoker Past Alcohol Use History: None Reported Past Drug Use History: None Reported - Past Family History Father Family Medical History: Cancer, Congestive Heart Failure (CHF), Diabetes Mellitus, Dialysis, Hypertension, Renal Disease General Exam - General Exam Comments Initial Comments: PHYSICAL EXAM: General Impression: Alert and oriented x3, not in acute distress HEENT: Normocephalic atraumatic, extra-ocular movements intact, pupils equal and reactive to light bilaterally, mucous membranes moist. Cardiovascular: Heart regular rate and rhythm Chest: Able to complete full sentences, no retractions, no tachypnea Abdomen: abdomen soft, non-tender, non-distended, no organomegaly Musculoskeletal: Pulses present and equal in all extremities, no peripheral edema Motor: no focal deficits noted Neurological: CN II-XII grossly intact, no focal motor or sensory deficits noted Skin: Intact with no visualized rashes Psych: Normal affect and mood Limitations: no limitations Course Vital Signs 08/18/24 08/18/24 15:16 17:39 Temperature 98 F Pulse Rate 95 90 Respiratory 18 20 Rate Blood Pressure 126/89 105/71 O2 Sat by Pulse 99 96 Oximetry EKG Findings - EKG Comments: EKG Findings:: My EKG interpretation: Ventricular rate 91, sinus rhythm, DC 154, QRS 79, QTc 408. No DC prolongation, no QTC prolongation, no ST or T-wave changes noted. Overall, this EKG is unremarkable Medical Decision Making - Medical Decision Making Was pt. sent in by a medical professional or institution (, PA, CROP PICKER, urgent care, hospital, or alf...) When possible be specific @ -No Did you speak to anyone other than the patient for history (EMS, parent, family, police, friend...)? What history was obtained from this source @ -No Did you review nursing and triage notes (agree or disagree)? Why? @ -I reviewed and agree with nursing and triage notes Were old charts reviewed (outside hosp., previous admission, EMS record, old EKG, old radiological studies, urgent care reports/EKG's, alf records)? Report findings @ -No old charts were reviewed Differential Diagnosis (chest pain, altered mental status, abdominal pain women, abdominal pain men, vaginal bleeding, musculoskeletal, weakness, fever, dyspnea, syncope, headache, dizziness, GI bleed, back pain, seizure, CVA, palpatations, mental health)? @ -Differential Chest Pain: Stable Angina, Unstable Angina, STEMI, NSTEMI Aortic Dissection, Pneumothorax, Musculoskeletal, Esophageal Spasm GERD, Cholecystitis, Pancreatitis, Zoster, this is not meant to be an all-inclusive list. EKG interpreted by me (3pts min.). @ -Above X-rays interpreted by me (1pt min.). @ -Chest x-ray is nonacute CT interpreted by me (1pt min.). @ -None done U/S interpreted by me (1pt. min.). @ -None done What testing was considered but not performed or refused? (CT, X-rays, U/S, labs)? Why? @ -None What meds were considered but not given or refused? Why? @ -None Was smoking cessation discussed for >3mins.? @ -No Were there social determinants of health that impacted care today? How? (Homelessness, low income, unemployed, alcoholism, drug addiction, transportation, low edu. Level, literacy, decrease access to med. care, long term, rehab)? @ -No Was there de-escalation of care discussed even if they declined (Discuss DNR or withdrawal of care, Hospice)? DNR status @ -No What co-morbidities impacted this encounter? (DM, HTN, Smoking, COPD, CAD, Cancer, CVA, ARF, Chemo, Hep., AIDS, mental health diagnosis, sleep apnea, morbid obesity)? @ -None Was patient admitted / discharged? Hospital course, mention meds given and route, prescriptions, significant lab abnormalities, going to OR and other pertinent info. @ -43-year-old female presents emergency department with atypical chest pain typical features. Vital signs upon arrival are within acceptable limits. EKG is nonischemic. Laboratory evaluation is unremarkable. Patient offered observation admission however she refused would prefer to troponins. Second troponin is negative. Patient reevaluated bedside found to be stable medical addition. Patient given aspirin and given return precautions along with referral to cardiology for outpatient stress test. Did you discuss the management of the patient with other professionals (professionals i.e. , PA, CROP PICKER, lab, RT, psych nurse, social worker clinical, securities consultant, teacher, chief customer officer, correctional counselor/case manager)? Give summary @ -No Was critical care preformed (if so, how long)? @ -No Undiagnosed new problem with uncertain prognosis? @ -No Drug Therapy requiring intensive monitoring for toxicity (Heparin, Nitro, Insulin, Cardizem)? @ -No Were any procedures done? @ -No Diagnosis/symptom? Acute, or Chronic, or Acute on Chronic? Uncomplicated (without systemic symptoms) or Complicated (systemic symptoms)? @ -Chest pain Side effects of treatment? @ -No Exacerbation, Progression, or Severe Exacerbation? @ -No Poses a threat to life or bodily function? How? (Chest pain, [place], [place], pneumonia, PE, COPD, DKA, ARF, appy, cholecystitis, CVA, Diverticulitis, Homicidal, Suicidal, threat to staff... and all critical care pts) @ -yes - Lab Data Result diagrams: 08/18/24 16:13 08/18/24 16:13 Lab Results 08/18/24 08/18/24 08/18/24 Range/Units 16:13 16:13 16:13 WBC 10.94 H (4.50-10.00) 10*3/uL RBC 4.98 (4.10-5.20) 10*6/uL Hgb 15.5 H (12.0-15.0) g/dL Hct 43.9 (37.2-46.3) % MCV 88.2 (80.0-97.0) fL MCH 31.1 (27.0-32.0) pg MCHC 35.3 (32.0-37.0) g/dL Plt Count 310 (140-440) 10*3/uL MPV 9.4 L (9.5-12.2) fL Immature Gran % (Auto) 0.3 % Neutrophils % 65.9 % Lymphocytes % 25.1 % Monocytes % 5.1 % Eosinophils % 2.9 % Basophils % 0.7 % Immature Gran # 0.03 (0.00-0.04) 10*3/uL Neutrophils # 7.20 (1.80-7.70) 10*3/uL Lymphocytes # 2.75 (0.90-5.00) 10*3/uL Monocytes # 0.56 (0.20-1.00) 10*3/uL Eosinophils # 0.32 (0.04-0.35) 10*3/uL Basophils # 0.08 (0.00-0.10) 10*3/uL PT 10.6 (10.0-12.5) sec INR 0.9 (<1.2) APTT 24.7 (22.0-30.0) sec Sodium 136 L (137-145) mmol/L Potassium 4.1 (3.5-5.1) mmol/L Chloride 102 (98-107) mmol/L Carbon Dioxide 28 (22-30) mmol/L Anion Gap 6 mmol/L BUN 14 (7-17) mg/dL Creatinine 0.63 (0.52-1.04) mg/dL Est GFR (CKD-EPI)AfAm >90 (>60 ml/min/1.73 sqM) Est GFR (CKD-EPI)NonAf >90 (>60 ml/min/1.73 sqM) Glucose 125 H (74-99) mg/dL Calcium 9.2 (8.4-10.2) mg/dL Magnesium 2.0 (1.6-2.3) mg/dL Total Bilirubin 0.4 (0.2-1.3) mg/dL AST 20 (14-36) U/L ALT 18 (4-34) U/L Alkaline Phosphatase 64 (38-126) U/L Troponin I (0.000-0.034) ng/mL Total Protein 6.2 L (6.3-8.2) g/dL Albumin 3.7 (3.5-5.0) g/dL 08/18/24 08/18/24 Range/Units 16:13 19:25 WBC (4.50-10.00) 10*3/uL RBC (4.10-5.20) 10*6/uL Hgb (12.0-15.0) g/dL Hct (37.2-46.3) % MCV (80.0-97.0) fL MCH (27.0-32.0) pg MCHC (32.0-37.0) g/dL Plt Count (140-440) 10*3/uL MPV (9.5-12.2) fL Immature Gran % (Auto) % Neutrophils % % Lymphocytes % % Monocytes % % Eosinophils % % Basophils % % Immature Gran # (0.00-0.04) 10*3/uL Neutrophils # (1.80-7.70) 10*3/uL Lymphocytes # (0.90-5.00) 10*3/uL Monocytes # (0.20-1.00) 10*3/uL Eosinophils # (0.04-0.35) 10*3/uL Basophils # (0.00-0.10) 10*3/uL PT (10.0-12.5) sec INR (<1.2) APTT (22.0-30.0) sec Sodium (137-145) mmol/L Potassium (3.5-5.1) mmol/L Chloride (98-107) mmol/L Carbon Dioxide (22-30) mmol/L Anion Gap mmol/L BUN (7-17) mg/dL Creatinine (0.52-1.04) mg/dL Est GFR (CKD-EPI)AfAm (>60 ml/min/1.73 sqM) Est GFR (CKD-EPI)NonAf (>60 ml/min/1.73 sqM) Glucose (74-99) mg/dL Calcium (8.4-10.2) mg/dL Magnesium (1.6-2.3) mg/dL Total Bilirubin (0.2-1.3) mg/dL AST (14-36) U/L ALT (4-34) U/L Alkaline Phosphatase (38-126) U/L Troponin I <0.012 <0.012 (0.000-0.034) ng/mL Total Protein (6.3-8.2) g/dL Albumin (3.5-5.0) g/dL Disposition Clinical Impression: Chest pain Disposition: HOME SELF-CARE Condition: Fair Instructions (If sedation given, give patient instructions): Chest Pain (ED) Is patient prescribed a controlled substance at d/c from ED?: No Referrals: Jaison Mays MD [Primary Care Provider] - 1-2 days Denny Ogden MD [Medical Doctor] - 1-2 days Time of Disposition: 20:13
[2024-08-18 16:21] LABS: Basophils # (A) 0.08 10*3/uL (0.00-0.10); Basophils % (A) 0.7 %; Eosinophils # (A) 0.32 10*3/uL (0.04-0.35); Eosinophils % (A) 2.9 %; HCT 43.9 % (37.2-46.3); HGB 15.5 g/dL (12.0-15.0); Lymphocytes # (A) 2.75 10*3/uL (0.90-5.00); Lymphocytes % (A) 25.1 %; MCH 31.1 pg (27.0-32.0); MCHC 35.3 g/dL (32.0-37.0); MCV 88.2 fL (80.0-97.0); Mean Platelet Volume 9.4 fL (9.5-12.2); Monocytes # (A) 0.56 10*3/uL (0.20-1.00); Monocytes % (A) 5.1 %; Neutrophils % (A) 65.9 %; Platelet Count 310 10*3/uL (140-440); RBC 4.98 10*6/uL (4.10-5.20); RDW 13.8 % (11.5-14.5); WBC 10.94 10*3/uL (4.50-10.00)
--- NOTE | 2024-08-18 16:30 | XR ---
EXAMINATION TYPE: XR chest 2V DATE OF EXAM: 08/18/2024 4:27 PM COMPARISON: 05/17/2024 CLINICAL INDICATION: Female, 43 years old with history of Chest Pain, , TECHNIQUE: AP and lateral views FINDINGS: Heart is upper limits of normal in size. Hazy lung densities likely related to patient body habitus a nd overlying soft tissue. No evelio consolidation or pleural effusion. IMPRESSION: Borderline heart size. No definite acute process. [facility], Workstation: [facility], 08/18/2024 4:28 PM
[2024-08-18 16:33] LABS: INR 0.9 (<1.2); Partial Thromboplastin Time 24.7 sec (22.0-30.0); Prothrombin Time 10.6 sec (10.0-12.5)
[2024-08-18 16:34] LABS: ALT 18 U/L (4-34); AST 20 U/L (14-36); African American GFR (CKD) >90 (>60 ml/min/1.73 sqM); Albumin 3.7 g/dL (3.5-5.0); Alkaline Phosphatase 64 U/L (38-126); Anion Gap 6 mmol/L; Blood Urea Nitrogen 14 mg/dL (7-17); Calcium 9.2 mg/dL (8.4-10.2); Carbon Dioxide 28 mmol/L (22-30); Chloride 102 mmol/L (98-107); Glucose 125 mg/dL (74-99); Non-African American GFR(CKD) >90 (>60 ml/min/1.73 sqM); Potassium 4.1 mmol/L (3.5-5.1); Sodium 136 mmol/L (137-145); Total Bilirubin 0.4 mg/dL (0.2-1.3); Total Protein 6.2 g/dL (6.3-8.2)
[2024-08-18] MEDS: ASPIRIN 81 MG PO STA (17:41)
[2024-08-18 20:22] VITALS: BP 103/65; PULSE 75; RESP 17; TEMP 97.9
== END 2024-08-18 20:58 | disposition home or self-care (01) ==
LOC: EC 15:06
DX: R07.89 Other chest pain (principal); Z87.891 Personal history of nicotine dependence
CPT/HCPCS: 36415; 71046; 80053; 83735; 84484; 85025; 85610; 85730; 93005; 99285

== ENCOUNTER 2024-10-03 21:18 | Emergency (ER) | payer MEDICAID ==
[2024-10-03 21:26] VITALS: TEMP 98.2
--- NOTE | 2024-10-03 22:20 | ED ---
General Adult HPI - General Chief complaint: Extremity Injury, Lower Stated complaint: Hip Pain Time Seen by Provider: 10/03/24 21:31 Source: patient, RN notes reviewed Mode of arrival: ambulatory Limitations: no limitations - History of Present Illness Initial comments: This is a 44-year-old female with history of tubal ligation, GERD and QUINTIN presenting for right hip pain (01/14) x 2 weeks. Patient states pain started after heavy lifting at work. Patient states she is unable to bear weight with associated burning noted during rotation. Endorses use of Tylenol/Motrin with minimal relief. Denies radiculopathy, saddle paresthesia, urinary incontinence/retention. Onset/Timin -: week(s) Severity scale (1-10): 10 - Related Data Home Medications Medication Instructions Recorded Confirmed cloNIDine HCL [Catapres] 0.1 mg PO BID PRN 09/19/19 06/25/22 Atorvastatin [Lipitor] 10 mg PO DAILY 08/28/20 06/25/22 Meloxicam [Mobic] 15 mg PO DAILY 08/28/20 06/25/22 lisinopriL [Zestril] 5 mg PO DAILY 08/28/20 06/25/22 ziprasidone HCL [Geodon] 80 mg PO HS 08/28/20 06/25/22 Previous Rx's Medication Instructions Recorded HYDROcodone/APAP 5-325MG [Auberry 1 tab PO Q6HR PRN 3 Days #12 tab 07/18/22 5-325] Ibuprofen [Motrin] 800 mg PO Q8H PRN #15 tab 07/18/22 Fluconazole 150 mg PO ONCE 1 Days #1 tab 10/11/22 clindamycin HCL 300 mg PO QID #40 cap 11/01/22 Ibuprofen [Motrin] 600 mg PO Q6HR PRN #20 tab 12/27/23 Ibuprofen [Motrin] 800 mg PO Q8HR PRN #30 tab 10/04/24 Lidocaine 4% Patch 1 patch TOPICAL Q24H PRN #10 patch 10/04/24 Allergies Allergy/AdvReac Type Severity Reaction Status Date / Time No Known Allergies Allergy Verified 10/03/24 21:26 Review of Systems ROS Statement: Those systems with pertinent positive or pertinent negative responses have been documented in the HPI. ROS Other: All systems not noted in ROS Statement are negative. Past Medical History Past Medical History: GERD/Reflux, Sleep Apnea/CPAP/BIPAP Additional Past Medical History / Comment(s): Pt. has a hx. of DM but lost wt. and started exercising approx. one year ago and no longer needs oral diabetic meds. or diabetic diet; Pt. takes omeprazole otc, when needed for acid reflux; Pt. stated not using cpap machine. Pt. states she has chronic back pain but has no diagnosis and no prev. injury; Pt. has endometriosis and interstitial cystitis., diverticulits History of Any Multi-Drug Resistant Organisms: None Reported Past Surgical History: Tubal Ligation Additional Past Surgical History / Comment(s): d & c Past Anesthesia/Blood Transfusion Reactions: No Reported Reaction Past Psychological History: Anxiety, Bipolar, Depression, PTSD Smoking Status: Former smoker Past Alcohol Use History: None Reported Past Drug Use History: None Reported - Past Family History Father Family Medical History: Cancer, Congestive Heart Failure (CHF), Diabetes Mellitus, Dialysis, Hypertension, Renal Disease General Exam Limitations: no limitations General appearance: alert, in no apparent distress Head exam: Present: atraumatic, normocephalic, normal inspection Eye exam: Present: normal appearance, PERRL, EOMI. Absent: scleral icterus, conjunctival injection, periorbital swelling ENT exam: Present: normal exam, mucous membranes moist Neck exam: Present: normal inspection. Absent: tenderness, meningismus, lymphadenopathy Respiratory exam: Present: normal lung sounds bilaterally. Absent: respiratory distress, wheezes, rales, rhonchi, stridor Cardiovascular Exam: Present: regular rate, normal rhythm, normal heart sounds. Absent: systolic murmur, diastolic murmur, rubs, gallop, clicks GI/Abdominal exam: Present: soft, normal bowel sounds. Absent: distended, tenderness, guarding, rebound, rigid Extremities exam: Present: full ROM, tenderness (Positive diffuse exquisite right hip tenderness without obvious crepitus, deformity), normal capillary refill, other (BLE distal neurovascular and motor function intact. Posterior tibialis pulse +2. Negative straight leg raise bilaterally). Absent: pedal edema, joint swelling, calf tenderness Back exam: Present: paraspinal tenderness (Positive right paralumbar tenderness), vertebral tenderness (Positive lumbar TTP without crepitus or step- off) Neurological exam: Present: alert, oriented X3, CN II-XII intact Psychiatric exam: Present: normal affect, normal mood Skin exam: Present: warm, dry, intact, normal color. Absent: rash Course Vital Signs 10/03/24 10/04/24 21:24 01:31 Temperature 98.2 F 98.2 F Pulse Rate 79 78 Respiratory 18 19 Rate Blood Pressure 123/85 139/78 O2 Sat by Pulse 97 98 Oximetry Medical Decision Making - Medical Decision Making Was pt. sent in by a medical professional or institution (, HERMELINDO, INTAKE ASSESSOR, urgent care, hospital, or [place] health care facility...) When possible be specific @ -No Did you speak to anyone other than the patient for history (EMS, parent, family, police, friend...)? What history was obtained from this source @ -No Did you review nursing and triage notes (agree or disagree)? Why? @ -I reviewed and agree with nursing and triage notes Were old charts reviewed (outside hosp., previous admission, EMS record, old EKG, old radiological studies, urgent care reports/EKG's, [place] health care facility records)? Report findings @ -No old charts were reviewed Differential Diagnosis (chest pain, altered mental status, abdominal pain women, abdominal pain men, vaginal bleeding, weakness, fever, dyspnea, syncope, headache, dizziness, GI bleed, back pain, seizure, CVA, palpatations, mental health, musculoskeletal)? @ -Differential Musculoskeletal Muscular strain, contusion, ligament sprain, fracture, arthritis, septic arthritis, bursitis, cellulitis, muscle spasm, nerve compression, DVT, arterial occlusion, herpes zoster, electrolyte abnormality, tumor.... This is not meant to be in all inclusive list EKG interpreted by me (3pts min.). @ -Not done X-rays interpreted by me (1pt min.). @ -None done CT interpreted by me (1pt min.). @ - Right hip CT shows no acute fracture or dislocation without soft tissue swelling or joint effusion. U/S interpreted by me (1pt. min.). @ -None done What testing was considered but not performed or refused? (CT, X-rays, U/S, labs)? Why? @ -None What meds were considered but not given or refused? Why? @ -None Did you discuss the management of the patient with other professionals (professionals i.e. , PA, INTAKE ASSESSOR, lab, RT, psych nurse, school social worker, fx artist, teacher, infantry officer, insurance case manager)? Give summary @ -No Was smoking cessation discussed for >3mins.? @ -No Was critical care preformed (if so, how long)? @ -No Were there social determinants of health that impacted care today? How? (Homelessness, low income, unemployed, alcoholism, drug addiction, transportation, low edu. Level, literacy, decrease access to med. care, assisted, rehab)? @ -No Was there de-escalation of care discussed even if they declined (Discuss DNR or withdrawal of care, Hospice)? DNR status @ -No What co-morbidities impacted this encounter? (DM, HTN, Smoking, COPD, CAD, Cancer, CVA, ARF, Chemo, Hep., AIDS, mental health diagnosis, sleep apnea, morbid obesity)? @ -None Was patient admitted / discharged? Hospital course, mention meds given and route, prescriptions, significant lab abnormalities, going to OR and other pertinent info. @ -Patient initially provided IV morphine, Toradol and Solu-Medrol. Right hip CT shows no acute fracture or dislocation without soft tissue swelling or joint effusion. Patient provided additional IV morphine and Toradol for ongoing pain. Patient discharged with T3 starter pack. Work note with lifting restrictions also provided upon request. Lidocaine patch and Motrin 800 sent to patient's pharmacy. Advised follow-up with PCP/orthopedics regarding ongoing pain. Discussed patient with Dr. Post. Undiagnosed new problem with uncertain prognosis? @ -No Drug Therapy requiring intensive monitoring for toxicity (Heparin, Nitro, Insulin, Cardizem)? @ -No Were any procedures done? @ -No Diagnosis/symptom? @ -Lumbar back pain with radiculopathy Acute, or Chronic, or Acute on Chronic? @ -Acute Uncomplicated (without systemic symptoms) or Complicated (systemic symptoms)? @ -Uncomplicated Side effects of treatment? @ -No Exacerbation, Progression, or Severe Exacerbation? @ -No Poses a threat to life or bodily function? How? (Chest pain, [place], [place], pneumonia, PE, COPD, DKA, ARF, appy, cholecystitis, CVA, Diverticulitis, Homicidal, Suicidal, threat to staff... and all critical care pts) @ -No Disposition Clinical Impression: Sciatica associated with disorder of lumbar spine Disposition: HOME SELF-CARE Condition: Fair Instructions (If sedation given, give patient instructions): Sciatica (ED), Lumbar Radiculopathy (ED) Additional Instructions: Apply warm/cold compress to affected area of lower back for 10 minutes up to 4 times daily. Alternate Tylenol/Motrin every 4 hours for pain. Follow-up with orthopedics for ongoing management of back/hip pain. Prescriptions: Lidocaine 4% Patch 1 patch TOPICAL Q24H PRN #10 patch PRN Reason: Pain Ibuprofen [Motrin] 800 mg PO Q8HR PRN #30 tab PRN Reason: Pain Is patient prescribed a controlled substance at d/c from ED?: No Referrals: Jaison Mays MD [Primary Care Provider] - 1-2 days [facility] [Provider Group] - 1-2 days [facility] [Provider Group] - 1-2 days Time of Disposition: 00:46
[2024-10-03] MEDS: MORPHINE SULFATE 4 MG/ML SYRINGE IVP STA (22:48)
[2024-10-03] MEDS: methylPREDNISolone SOD SUCCI 125 MG/2 ML VIAL IV STA (22:51)
[2024-10-03] MEDS: KETOROLAC 15 MG/ML 1 ML VIAL IVP STA (22:51)
[2024-10-04] MEDS: KETOROLAC 15 MG/ML 1 ML VIAL IVP STA (00:22)
[2024-10-04] MEDS: MORPHINE SULFATE 4 MG/ML SYRINGE IVP STA (00:25)
--- NOTE | 2024-10-04 00:27 | CT ---
EXAMINATION TYPE: CT hip RT wo con CT DLP: 1171.6 mGycm, Automated exposure control for dose reduction was used. DATE OF EXAM: 10/03/2024 11:11 PM COMPARISON: CT abdomen and pelvis 06/14/2024, transvaginal ultrasound 11/01/2019 CLINICAL INDICATION:Female, 44 years old with history of Pain preventing ambulation, R paralumbar TTP also; PH[facility], TECHNIQUE: Axial images were obtained of the right hip without the use of IV contrast. Additional co anup and sagittal reformatted images and soft tissue and bone window were obtained for review. FINDINGS: There is no evidence of fracture, subluxation, or dislocation. No significant soft tissue swelling or joint effusion is identified. No focal muscular atrophy or edema is identified. No radiop aque foreign body identified. Degenerative changes of the visualized lumbar spine at L5-S1 with disc space narrowing, endplate scle rosis, vacuum disc disease, and anterior osteophytosis. Degenerative changes of the pubic symphysis. Bilateral ovarian cystic lesions which are probably dominant follicles/cysts. Sigmoid diverticulosis without visualized acute diverticulitis. Few pelvic phleboliths. IMPRESSION: No acute fracture or dislocation. No CT evidence for abnormality corresponding to patient's symptomol ogy. [facility], , 10/04/2024 12:24 AM
[2024-10-04] MEDS: ACET/COD 300 MG/30 MG STARTER PACK 6 TAB BTL PO STA (01:07)
[2024-10-04 01:32] VITALS: BP 139/78; PULSE 78; RESP 19
== END 2024-10-04 01:31 | disposition home or self-care (01) ==
LOC: EC 21:18
DX: M54.41 Lumbago with sciatica, right side (principal); Z87.891 Personal history of nicotine dependence
CPT/HCPCS: 73700; 99284; 96374; 96375 ×2; 96376 ×2; J2270 ×2; J1885 ×2; J2919